=== PATIENT | female | born 1955 | race Caucasian/White ===

== ENCOUNTER 2023-09-18 08:24 | Outpatient (REF) | payer OTHER, SELFPAY ==
[2023-09-18 14:32] LABS: MANUAL DIFF FLAG NO
[2023-09-18 14:37] LABS: Basophils Percent Auto 0.5 % (0-2); Eosinophils Absolute Auto 0.4 X10*3/uL (0.0-0.4); Eosinophils Percent Auto 4.4 % (0-4); Hematocrit 45.6 % (37.0-47.0); Hemoglobin 15.6 g/dl (12.0-16.0); Imm Gran Abs Auto 0.04 X10*3/uL (0.00-0.03); Imm Gran Pct Auto 0.5 % (0.0-0.4); Lymphocytes Absolute Auto 1.7 X10*3/uL (1.2-4.9); Lymphocytes Percent Auto 21.2 % (20-40); Mean Corpuscular HGB Conc 34.2 g/dl (31.0-35.0); Mean Corpuscular Hemoglobin 29.7 pg (27.0-33.0); Mean Corpuscular Volume 86.7 fL (80.0-98.0); Mean Platelet Volume 10.5 fL (9.4-12.3); Monocytes Absolute Auto 0.6 X10*3/uL (0.1-1.2); Monocytes Percent Auto 7.8 % (2-11); Neutrophils Absolute Auto 5.3 x10*3/uL (2.0-8.3); Neutrophils Percent Auto 65.6 % (45-73); Platelet Count 247 X10*3/uL (160-400); Red Blood Count 5.26 X10*6/uL (4.20-5.50); White Blood Count 8.1 X10*3/uL (4.8-10.8)
[2023-09-18 15:20] LABS: Alanine Aminotransferase 13 U/L (0-31); Albumin Level 4.3 g/dL (3.5-5.0); Alkaline Phosphatase 55 U/L (39-117); Anion Gap 13 (12-20); Aspartate Amino Transferase 16 U/L (5-31); Bilirubin Total 0.4 mg/dL (0.0-1.0); Blood Urea Nitrogen 29 mg/dL (9-16); Calcium 9.7 mg/dL (8.4-10.2); Carbon Dioxide 27 mmol/L (22-29); Chloride 105 mmol/L (96-108); Cholesterol 264 mg/dL (<200); Estimated Glomerular Filt Rate 56; Glucose Fasting 88 mg/dL (60-99); HDL Cholesterol 48 mg/dL (>40); LDL Cholesterol Calculated 196 mg/dL (<100); Potassium 3.1 mmol/L (3.3-5.1); Sodium 142 mmol/L (135-145); Total Protein 7.1 g/dL (6.5-8.0); Triglycerides 104 mg/dL (<150)
[2023-09-18 15:21] LABS: Vitamin D 25-OH Total 66.9 ng/mL (>30)
[2023-09-19 03:28] LABS: ~HepC Num1 0.06 S/CO (0.00-0.79); ~Hepatitis C Antibody Nonreactive (Nonreactive)
== END 2023-09-18 08:25 | disposition home or self-care (01) ==
LOC: HO.CHCLDS 08:24
PROVIDERS: Visit Provider Internal Medicine
DX: I10 Essential (primary) hypertension (principal); E55.9 Vitamin D deficiency, unspecified
CPT/HCPCS: 36415; 80053; 80061; 82306; 84443; 85025; 86803

== ENCOUNTER 2023-10-12 09:33 | Outpatient (REF) | payer OTHER, SELFPAY ==
[2023-10-12 14:33] LABS: Potassium 3.3 mmol/L (3.3-5.1)
== END 2023-10-12 09:34 | disposition home or self-care (01) ==
LOC: HO.CHCLDS 09:33
PROVIDERS: Visit Provider Internal Medicine
DX: E87.6 Hypokalemia (principal)
CPT/HCPCS: 36415; 84132

== ENCOUNTER 2024-08-23 09:59 | Outpatient (REF) | payer OTHER, SELFPAY ==
[2024-08-23 12:00] LABS: Alanine Aminotransferase 33 U/L (0-31); Albumin Level 4.1 g/dL (3.5-5.0); Alkaline Phosphatase 57 U/L (39-117); Anion Gap 12 (12-20); Aspartate Amino Transferase 26 U/L (5-31); Bilirubin Total 0.5 mg/dL (0.0-1.0); Blood Urea Nitrogen 22 mg/dL (9-16); Calcium 9.5 mg/dL (8.4-10.2); Carbon Dioxide 26 mmol/L (22-29); Chloride 108 mmol/L (96-108); Cholesterol 147 mg/dL (<200); Estimated Glomerular Filt Rate > 60; Glucose Random 123 mg/dL (60-115); HDL Cholesterol 45 mg/dL (>40); LDL Cholesterol Calculated 85 mg/dL (<100); Potassium 3.8 mmol/L (3.3-5.1); Sodium 142 mmol/L (135-145); Total Protein 6.4 g/dL (6.5-8.0); Triglycerides 87 mg/dL (<150)
[2024-08-23 12:19] LABS: TSH reflex Free T4 1.72 uIU/mL (0.32-4.0)
== END 2024-08-23 10:00 | disposition home or self-care (01) ==
LOC: HO.HHCL 09:59
PROVIDERS: Visit Provider Internal Medicine
DX: E78.2 Mixed hyperlipidemia (principal); E03.9 Hypothyroidism, unspecified; I10 Essential (primary) hypertension
CPT/HCPCS: 36415; 80053; 80061; 84443

== ENCOUNTER 2024-12-21 15:30 | Outpatient (REF) | payer MEDICARE, SELFPAY ==
--- NOTE | ~2024-12-21 | XR_ITS ---
EXAMINATION: XR ELBOW, RIGHT CLINICAL INFORMATION: INJURY COMPARISON: None available. TECHNIQUE: AP, lateral, and oblique views of the right elbow. FINDINGS: No fracture, dislocation, or suspicious bone lesion. Normal alignment. Joint spaces are preserved. No evidence of joint effusion. Small enthesophytes involving the lateral and medial epicondyles. Normal soft tissues. XR/XR elbow RT min 3V IMPRESSION: No acute findings right elbow. Electronically signed by: Aba Kign MD 12/21/2024 04:05 PM JOVANA
--- OUTSIDE RECORDS SUMMARY | 2024-12-21 15:34 | XMS_ITS | Encounter Summary ---
Author Organization [employer] Address [address] 7t [place] [address] Care Team Providers Care Ventilation Worker Name Role Phone Munir Ruiz MD Primary Care Prov ider Encounter Details Date Type Department Care Team (Latest Contact Info) Description 12/02/2024 Travel Social History Tobacco Use Types Packs/Day Years Used Date Smoking Tobacco: Former Cigarettes 970 - 1999 Smokeless Tobacco: Never Alcohol Use Standard Drinks/Week Comments Not Currently 0 (1 standard drink = 0.6 oz pur e alcohol) Depression Answer Date Recorded Patient Health Questionnaire-9 Score 0 09/13/2024 Patient Health Questionnaire-9 Score 0 09/13/2024 Last PHQ-9: Questionnaire Data Not on file 1 11/13/2023 Housing Stability Answer Date Recorded What is your housing situation today? I have beaujuan ching 09/13/[address] you li ve. Do you have problems with any of the following? None of the above 09/13/2024 Food Insecurity Answer Date Recorded Within the past 12 months, y ou worried that your food would run out before you got money to buy more: Never True 09/13/2024 Within the past 12 months,th e food you bought just didn't last and you didn't have enough money to get more: Never True 10/2024 Transportation Answer Date Recorded In the past 12 months, has l ack of transportation kept you from medical appts, meetings, work or from getting things needed for daily living? No 09/13/2024 Utilities Answer Date Recorded In the past 12 months, has t he electric, gas, oil or water company threatened to shut off services in your home? No 09/13/2024 Depression Answer Date Recorded Patient Health Questionnaire-2 Score 0 09/13/2024 Internet Access Answer Date Recorded Internet Access Q1 Yes 09/13/2024 Internet Access Q2 Not on file 09/13/2024 Comments Unknown Sex and Gender Information Value Date Recorded Sex Assigned at Female 07/30/2023 5:43 PM EDT Legal Sex Female 5:36 PM EDT Gender Identity Female 07/30/2023 5:43 PM EDT Sexual Orientation Don't know 07/30/2023 5: 43 PM EDT documented as of this encounter Plan of Treatment Upcoming Encounters Date Type Department Care Team (Late st Contact Info) Description 01/06/2025 8:30 AM EST Telemedicine [facility] MED & PEDS [address] [place] [address] Munir Ruiz MD 505 [place] [address] 01/17/2025 9:00 AM EDT Clinical Support [facility] MED & PEDS [address] [place] [address] Di Ulloa, ANA 505 [place] [address] 03/03/2025 1:30 PM EDT Office Visit [facility] OPTOMETRY [address] [place] [address] MartinTamica crawford, OD [address] [place] [address] documented as of this encounter Visit Diagnoses Not on filedocumented in this encounter Additional Health Concerns Assessment Noted Time PHQ-9 Depression Total Score: 0 09/13/20 24 1:43 PM EST documented as of this encounter Care Teams Ventilation Worker Relationship Specialty Start Date End Date Munir Ruiz MD 505 [place] [address] PCP - General Internal Medicine 10/12/23 documented as of this encounter
--- OUTSIDE RECORDS SUMMARY | 2024-12-21 15:34 | XMS_ITS | Encounter Summary ---
Author Organization [employer] Address [address] [facility] 7t [place] [address] Care Team Providers Care Proof Technician Helper Name Role Phone Munir Ruiz MD Primary Care Prov ider Reason for Visit * Reason Onset Date Comments Med Refill 12/20/2024 Encounter Details Date Type Department Care Team (Late st Contact Info) Description 12/20/2024 Refill [facility] MEDICINE [address] [place] [address] Munir Ruiz MD [address] [place], [place] [phone] Anxiety Social History Tobacco Use Types Packs/Day Years Used Date Smoking Tobacco: Former Cigarettes 1 30 1 970 - 2000 Smokeless Tobacco: Never Alcohol Use Standard Drinks/Week Comments Not Currently 0 (1 standard drink = 0.6 oz pur e alcohol) Depression Answer Date Recorded Patient Health Questionnaire-9 Score 0 09/13/2024 Patient Health Questionnaire-9 Score 0 09/13/2024 Last PHQ-9: Questionnaire Data Not on file 1 11/13/2023 Housing Stability Answer Date Recorded What is your housing situation today? I have beau ching 09/13/[address] you [...] PM EDT documented as of this encounter Miscellaneous Notes * Telephone Encounter - Carlo Damon - 12/20/2024 9:35 AM EST TC from pt requesting medication refill. Medications needing refill : LORazepam (Ativan) 1 MG tablet [facility] be [facility] to: [facility] documented in this encounter Plan of Treatment Upcoming Encounters Date Type Department Care Team (Late st Contact Info) Description 01/06/2025 8:30 AM EST Telemedicine [facility] MED & PEDS [address] [place] [address] Munir Ruiz MD 505 [place] [address] 01/17/2025 9:00 AM EDT Clinical Support [facility] MED & PEDS [address] [place] [address] Di Ulloa RN 505 [place] [address] 03/03/2025 1:30 PM EDT Office Visit [facility] OPTOMETRY [address] [place] [address] Tamica Salazar, OD [address] [place] [address] documented as of this encounter Visit Diagnoses Diagnosis Anxiety Anxiety state, unspecified documented in this encounter Additional Health Concerns Assessment Noted Time PHQ-9 Depression Total Score: 0 09/13/20 24 1:43 PM EST documented as of this encounter Care Teams Proof Technician Helper Relationship Specialty Start Date End Date Munir Ruiz MD [address] [place] [address] PCP - General Internal Medicine 10/12/23 documented as of this encounter
--- OUTSIDE RECORDS SUMMARY | 2024-12-21 15:34 | XMS_ITS | Encounter Summary ---
Author Organization [employer] Address [address] [facility] 7t [place] [address] Care Team Providers Care Size Changer Name Role Phone Munir Ruiz MD Primary Care Prov ider Reason for Visit * Reason Onset Date Comments Med Refill 07/18/2024 Encounter Details Date Type Department Care Team (Late st Contact Info) Description 07/18/2024 Telephone [facility] MEDICINE [address] [place] [address] Munir Ruiz MD [address] [place], [place] [phone] Med Refill Social History Tobacco Use Types Packs/Day Years Used Date Smoking Tobacco: Former Cigarettes 1 30 1 970 - 2000 Smokeless Tobacco: Never Alcohol Use Standard Drinks/Week Comments Not Currently 0 (1 standard drink = 0.6 oz pur e alcohol) Depression Answer Date Recorded Patient Health Questionnaire-9 Score 3 08/28/2023 Patient Health Questionnaire-9 Score 3 08/28/2023 Last PHQ-9: Questionnaire Data Not on file 1 Housing Stability Answer Date Recorded What is your housing situation today? I have beau ching 08/28/[address] you li ve. Do you have problems with any of the following? None of the above 08/28/2023 Food Insecurity Answer Date Recorded Within the past 12 months, y ou worried that your food would run out before you got money to buy more: Never True 08/28/2023 Within the past 12 months,th e food you bought just didn't last and you didn't have enough money to get more: Never True Transportation Answer Date Recorded In the past 12 months, has l ack of transportation kept you from medical appts, meetings, work or from getting things needed for daily living? No 08/28/2023 Utilities Answer Date Recorded In the past 12 months, has t he electric, gas, oil or water company threatened to shut off services in your home? No 08/28/2023 Depression Answer Date Recorded Patient Health Questionnaire-2 Score 0 08/28/2023 Comments Unknown Sex and Gender Information Value Date Recorded Sex Assigned at Female 07/30/2023 5:43 PM EDT Legal Sex Female 5:36 PM EDT Gender Identity Female 07/30/2023 5:43 PM EDT Sexual Orientation Don't know 07/30/2023 5: 43 PM EDT documented as of this encounter Miscellaneous Notes * Telephone Encounter - Darrell Hinojosa - 07/18/2024 11:25 AM EDT TC from pt requesting medication refill. Medications needing refill: oxyCODONE (Roxicodone) 5 MG immediate release tablet To be sent to: [facility] [address] [place] [address] documented in this encounter Plan of Treatment Upcoming Encounters Date Type Department Care Team (Late st Contact Info) Description 01/06/2025 8:30 AM EST Telemedicine [facility] MED & PEDS [address] [place] [address] Munir Ruiz MD 505 [place] [address] 01/17/2025 9:00 AM EDT Clinical Support [facility] MED & PEDS [address] [place] [address] Di Ulloa RN 505 [place] [address] 03/03/2025 1:30 PM EDT Office Visit [facility] OPTOMETRY [address] [place], [place] [phone] Tamica Salazar, OD [address] [place] [address] documented as of this encounter Visit Diagnoses Not on filedocumented in this encounter Additional Health Concerns Assessment Noted Time PHQ-9 Depression Total Score: 3 08/28/20 8:58 AM EDT documented as of this encounter Care Teams Size Changer Relationship Specialty Start Date End Date Munir Ruiz MD [address] [place] [address] PCP - General Internal Medicine 10/12/23 documented as of this encounter
--- OUTSIDE RECORDS SUMMARY | 2024-12-21 15:34 | XMS_ITS | Encounter Summary ---
Author Organization [employer] Address [address] [facility] 7t [place] [address] Care Team Providers Care Pastrycook'S Assistant Name Role Phone Munir Ruiz MD Primary Care Prov ider Reason for Visit * Reason Onset Date Comments Med Refill 11/22/2024 Encounter Details Date Type Department Care Team ([facility] st Contact Info) Description 11/22/2024 Refill [facility] MED & PEDS [address] [place], [place] [phone] Munir Ruiz MD 505 [place] [address] Anxiety Social History Tobacco Use Types Packs/Day [...] Info) Description 01/06/2025 8:30 AM EST Telemedicine [facility] MED & PEDS [address] [place] [address] Munir Ruiz MD 505 [place] [address] 01/17/2025 9:00 AM EDT Clinical Support [facility] MED & PEDS [address] [place] [address] Di Ulloa, ANA 505 [place] [address] 03/03/2025 1:30 PM EDT Office Visit [facility] OPTOMETRY [address] [place] [address] Tamica Salazar, OD [address] [place] [address] documented as of this encounter Visit Diagnoses Diagnosis Anxiety Anxiety state, unspecified documented in this encounter Additional Health Concerns Assessment Noted Time PHQ-9 Depression Total Score: 0 09/13/20 24 1:43 PM EST documented as of this encounter Care Teams Pastrycook'S Assistant Relationship Specialty Start Date End Date Munir Ruiz MD 505 [place] [address] PCP - General Internal Medicine 10/12/23 documented as of this encounter
--- OUTSIDE RECORDS SUMMARY | 2024-12-21 15:34 | XMS_ITS | Encounter Summary ---
Author Organization [employer] Address [address] [facility] 7t [place] [address] Care Team Providers Care Bull Riveter Name Role Phone Munir Ruiz MD Primary Care Prov ider Encounter Details Date Type Department Care Team (Late st Contact Info) Description 09/14/2024 Orders Only [facility] [address] [place] [address] Provider, MD Arjun Social History Tobacco Use Types Packs/Day Years [...] Info) Description 01/06/2025 8:30 AM EST Telemedicine [facility] MED & PEDS [address] [place] [address] Munir Ruiz MD 505 [place] [address] 01/17/2025 9:00 AM EDT Clinical Support [facility] MED & PEDS [address] [place] [address] Di Ulloa, ANA [address] [place] [address] 03/03/2025 1:30 PM EDT Office Visit [facility] OPTOMETRY [address] [place] [address] Martin, Tamica, OD [address] [place] [address] documented as of this encounter Procedures Procedure Name Priority Date/Time Associated Diagnosis Comments HM MAMMOGRAPHY Routine 11/13/2023 11:54 AM EST documented in this encounter Results * Hm Mammography (11/13/2023 11:54 AM EST) Anatomical Region Laterality Modality Other us Historical Provider HEALTH MAINTENANCE Final Result documented in this encounter Visit Diagnoses Not on filedocumented in this encounter Additional Health Concerns Assessment Noted Time PHQ-9 Depression Total Score: 0 09/13/20 24 1:43 PM EST documented as of this encounter Care Teams Bull Riveter Relationship Specialty Start Date End Date Munir Ruiz MD [address] [place] [address] PCP - General Internal Medicine 10/12/23 documented as of this encounter
--- OUTSIDE RECORDS SUMMARY | 2024-12-21 15:34 | XMS_ITS | Encounter Summary ---
Author Organization [employer] Address [address] [place] [address] Care Team Providers Care Small Craft Operator Name Role Phone Munir Ruiz MD Primary Care Prov ider Encounter Details Date Type Department Care Team (Latest Contact Info) Description 12/20/2024 Travel Social History Tobacco Use Types Packs/Day Years Used Date Smoking Tobacco: Former Cigarettes 30 970 - 1999 Smokeless Tobacco: Never Alcohol [...] Info) Description 01/06/2025 8:30 AM EST Telemedicine [facility] MED & PEDS [address] [place] [address] Munir Ruiz MD [address] [place] [address] 01/17/2025 9:00 AM EDT Clinical Support [facility] MED & PEDS [address] [place] [address] Di Ulloa, ANA 505 [place] [address] 03/03/2025 1:30 PM EDT Office Visit [facility] OPTOMETRY [address] [place] [address] MartinTamica crawford, OD [address] [place] [address] documented as of this encounter Visit Diagnoses Not on filedocumented in this encounter Additional Health Concerns Assessment Noted Time PHQ-9 Depression Total Score: 0 09/13/20 24 1:43 PM EST documented as of this encounter Care Teams Small Craft Operator Relationship Specialty Start Date End Date Munir Ruiz MD [address] [place] [address] PCP - General Internal Medicine 10/12/23 documented as of this encounter
--- OUTSIDE RECORDS SUMMARY | 2024-12-21 15:34 | XMS_ITS | Encounter Summary ---
Author Organization [employer] Address [address] [facility] 7t [place] [address] Care Team Providers Care Furnace Tapper Name Role Phone Munir Ruiz MD Primary Care Prov ider Reason for Visit * Reason Onset Date Comments Med Refill 09/12/2024 Encounter Details Date Type Department Care Team (Late st Contact Info) Description 09/12/2024 Telephone [facility] MEDICINE 230 [place] [address] Munir Ruiz MD [address] [place], [place] [phone] Med Refill Social History Tobacco Use Types [...] encounter Miscellaneous Notes * Telephone Encounter - Randy Jordan - 09/12/2024 10:53 AM EST TC from pt requesting medication refill. Medications needing refill : oxyCODONE (Roxicodone) 5 MG immediate release tablet To be sent to: [facility] - [address] documented in this encounter Plan of Treatment Upcoming Encounters Date Type Department Care Team ([facility] st Contact Info) Description 01/06/2025 8:30 AM EST Telemedicine [facility] MED & PEDS 505 [place] [address] Munir Ruiz MD 505 [place] [address] 01/17/2025 9:00 AM EDT Clinical Support [facility] MED & PEDS [address] [place] [address] Di Ulloa, ANA 505 [place] [address] 03/03/2025 1:30 PM EDT Office Visit [facility] OPTOMETRY [address] [place] [address] Tamica Salazar, OD [address] [place] [address] documented as of this encounter Visit Diagnoses Not on filedocumented in this encounter Additional Health Concerns Assessment Noted Time PHQ-9 Depression Total Score: 3 08/28/20 8:58 AM EDT documented as of this encounter Care Teams Furnace Tapper Relationship Specialty Start Date End Date Munir Ruiz MD [address] [place] [address] PCP - General Internal Medicine 10/12/23 documented as of this encounter
--- OUTSIDE RECORDS SUMMARY | 2024-12-21 15:34 | XMS_ITS | Encounter Summary ---
Author Organization [employer] Address [address] [place] [address] Care Team Providers Care Mainspring Former Name Role Phone Munir Ruiz MD Primary Care Prov ider Encounter Details Date Type Department Care Team (Late st Contact Info) Description 12/20/2024 Orders Only [facility] 230 [place], [place] [phone] Chetan Hankins MD [address] [place], [place] [phone] Social History Tobacco Use Types Packs/Day Years Used Date Smoking Tobacco: Former Cigarettes 30 1 970 - 2000 Smokeless Tobacco: [...] Info) Description 01/06/2025 8:30 AM EST Telemedicine [facility] MED & PEDS 505 [place] [address] Munir Ruiz MD 505 [place] [address] 01/17/2025 9:00 AM EDT Clinical Support [facility] MED & PEDS 505 [place] [address] Di Ulloa, RN 505 [place] [address] 03/03/2025 1:30 PM EDT Office Visit [facility] OPTOMETRY [address] [place] [address] Martin, Tamica, OD [address] [place] [address] documented as of this encounter Visit Diagnoses Not on filedocumented in this encounter Additional Health Concerns Assessment Noted Time PHQ-9 Depression Total Score: 0 09/13/20 24 1:43 PM EST documented as of this encounter Care Teams Mainspring Former Relationship Specialty Start Date End Date Munir Ruiz MD [address] [place] [address] PCP - General Internal Medicine 10/12/23 documented as of this encounter
--- OUTSIDE RECORDS SUMMARY | 2024-12-21 15:34 | XMS_ITS | Encounter Summary ---
Author Organization [employer] Address [address] [facility] 7t [place] [address] Care Team Providers Care Flyer Repairer Name Role Phone Munir Ruiz MD Primary Care Prov ider Reason for Visit * Reason Onset Date Comments Referral 12/09/2024 Encounter Details Date Type Department Care Team ([facility] st Contact Info) Description 12/09/2024 Telephone [facility] MED [facility] PEDS [address] [place], [place] [phone] Munir Ruiz MD [address] [place] [address] Referral Social History Tobacco Use Types Packs/Day Years [...] encounter Miscellaneous Notes * Telephone Encounter - Alexa Sandoval RN - 12/09/2024 1:51 PM EST TC to patient. Reviewed provider notes with patient as to why referral for GI and Pulmonary was ordered. 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 She is healing from a fractured clavicle, and will address the referralonce she is healed. * Telephone Encounter - Perla Nielsen - 12/09/2024 1:28 PM EST Tc from pt inquiring why she was referred to gastroenterology and pulmonary. Fraud Investigator advise will send a message to team nurse. Contact pt at [phone] documented in this encounter Plan of Treatment Upcoming Encounters Date Type Department Care Team (Late st Contact Info) Description 01/06/2025 8:30 AM EST Telemedicine [facility] MED & PEDS [address] [place] [address] Munir Ruiz MD [address] [place] [address] 01/17/2025 9:00 AM EDT Clinical Support [facility] MED & PEDS [address] [place], [place] [phone] Di Ulloa, RN [address] [place], [place] [phone] 03/03/2025 1:30 PM EDT Office Visit [facility] OPTOMETRY [address] [place], [place] [phone] MartinTamica crawford, OD [address] [place], [place] [phone] documented as of this encounter Visit Diagnoses Not on filedocumented in this encounter Additional Health Concerns Assessment Noted Time PHQ-9 Depression Total Score: 0 09/13/20 24 1:43 PM EST documented as of this encounter Care Teams Flyer Repairer Relationship Specialty Start Date End Date Munir Ruiz MD [address] [place] [address] PCP - General Internal Medicine 10/12/23 documented as of this encounter
--- OUTSIDE RECORDS SUMMARY | 2024-12-21 15:34 | XMS_ITS | Encounter Summary ---
Author Organization [employer] Address [address] [facility] 7t [place] [address] Care Team Providers Care Landscape And Yardwork Laborer Name Role Phone Munir Ruiz MD Primary Care Prov ider Encounter Details Date Type Department Care Team (Late st Contact Info) Description 12/02/2024 Telephone [facility] MED & PEDS [address] [place], [place] [phone] Munir Ruiz MD [address] [place] [address] Social History Tobacco Use Types Packs/Day Years Used Date Smoking Tobacco: Former Cigarettes 30 1 970 - 1999 Smokeless Tobacco: Never Alcohol [...] encounter Miscellaneous Notes * Telephone Encounter - Bernice Pierre MA - 12/02/2024 8:41 AM EST Called pt for tele appt today with Dr. Thompson. Pt didn't answer, lvm to call office back. documented in this encounter Plan of Treatment Upcoming Encounters Date Type Department Care Team (Late st Contact Info) Description 01/06/2025 8:30 AM EST Telemedicine [facility] MED & PEDS [address] [place] [address] Munir Ruiz MD [address] [place] [address] 01/17/2025 9:00 AM EDT Clinical Support [facility] MED & PEDS [address] [place] [address] Di Ulloa RN [address] [place] [address] 03/03/2025 1:30 PM EDT Office Visit [facility] OPTOMETRY [address] [place] [address] Tamica Salazar, OD [address] [place] [address] documented as of this encounter Visit Diagnoses Not on filedocumented in this encounter Additional Health Concerns Assessment Noted Time PHQ-9 Depression Total Score: 0 09/13/20 24 1:43 PM EST documented as of this encounter Care Teams Landscape And Yardwork Laborer Relationship Specialty Start Date End Date Munir Ruiz MD [address] [place] [address] PCP - General Internal Medicine 10/12/23 documented as of this encounter
--- OUTSIDE RECORDS SUMMARY | 2024-12-21 15:34 | XMS_ITS | Encounter Summary ---
Author Organization [employer] Address 75 [facility] 7t [place] [address] Care Team Providers Care Manufacturing Baker Name Role Phone Munir Ruiz MD Primary Care Prov ider Reason for Visit * Reason Onset Date Comments Nurse Triage 12/20/2024 Encounter Details Date Type Department Care Team (Late st Contact Info) Description 12/20/2024 Telephone [facility] MEDICINE [address] [place] [address] Munir Ruiz MD [address] [place] [address] Nurse Triage Social History Tobacco Use Types Packs/Day Years [...] encounter Miscellaneous Notes * Telephone Encounter - Michelle Diaz LPN - 12/20/2024 10:46 AM EST Triage call returned to patient who reports a fall several weeks ago. Was seen in ED and known fx of clavicle. Patient reports that pain started to get better and was seen at [facility] for clavicle no surgery indicated. Patient reports that she had pain in right elbowat time of fall but other pain was worse. No imaging of elbow per patient. Patient reports right elbow painful whn applying pressure like when getting up. Is able to flex and extend and is able to make a fist. Has been using previously prescribed Oxycodone and is using Ibuprofen as needed. Feels that she may have a fx of elbow and that she feels fluid collection in joint. Disposition reviewed and patient in agreement with plan. ASK/SDC/Today with Dr. Castañeda at 340pm. Protocol Used: Elbow Injury (Adult) Protocol-Based Disposition: See in Office or Video Visit Today or Tomorrow Video visit not offered Positive Triage Question: * Moderate pain (e.g., interferes with normal activities) and high-risk adult (e.g., age > 60 years, osteoporosis, chronic steroid use) * All higher-acuity triage questions were negative Care Advice Discussed: * Rest vs. Movement * Reasons To Call Back - Pain or swelling lasts over 2 weeks - You become worse * Telephone Encounter - Carlo Jose - 12/20/2024 9:32 AM EST TC from pt reports falling about 3x weeks ago and went to ED . Pt reports shattered her clavicle and doctors concern was that . Pt reports did not mention her elbow pain during time frame. Feels it is fractured and has liquid. documented in this encounter Plan of Treatment Upcoming Encounters Date Type Department Care Team (Late st Contact Info) Description 01/06/2025 8:30 AM EST Telemedicine [facility] MED & PEDS [address] [place] [address] Munir Ruiz MD [address] [place] [address] 01/17/2025 9:00 AM EDT Clinical Support [facility] MED & PEDS 505 [place] [address] Di Ulloa, ANA 505 [place] [address] 03/03/2025 1:30 PM EDT Office Visit [facility] OPTOMETRY [address] [place] [address] Tamica Salazar, OD [address] [place] [address] documented as of this encounter Visit Diagnoses Not on filedocumented in this encounter Additional Health Concerns Assessment Noted Time PHQ-9 Depression Total Score: 0 09/13/20 24 1:43 PM EST documented as of this encounter Care Teams Manufacturing Baker Relationship Specialty Start Date End Date Munir Ruiz MD [address] [place] [address] PCP - General Internal Medicine 10/12/23 documented as of this encounter
--- OUTSIDE RECORDS SUMMARY | 2024-12-21 15:34 | XMS_ITS | Encounter Summary ---
Author Organization [employer] Address [address] [facility] [address] 7t [place] [address] Care Team Providers Care Assembler Utility Buildings Name Role Phone Munir Ruiz MD Primary Care Prov ider Encounter Details Date Type Department Care Team (Late st Contact Info) Description 12/20/2024 Telephone [facility]ALK[facility] [address] [place], [place] [phone] Larissa Sue MD 230 [place], [place] [phone] Social History Tobacco Use Types Packs/Day Years [...] Telephone Encounter - Alexa Sandoval RN - 12/21/2024 10:19 AM EST Patient walked into office. Annual BP (158/88) taken on left arm. BP with home machine (162/78) taken on left arm. *please see RN encounter * Telephone Encounter - Ramona Major RN - 12/20/2024 5:35 PM EST See message below. call center coordinator provider Dr. Hankins placed order to [facility] pharmacy. RN called pt as [facility] would be closing soon, if can go to another pharmacy. Pt reports can rx be sent to [facility] and I can pick it up tomorrow as unable to obtain rx today. RN informed provider has sent to [facility] pharmacy. Pt verbalized understanding. Pt inquiring on BP measurements today at visit and informed of BP per office visit note with Dr. Castañeda today 12/20/24. RN inquired if pt has checked BP since being home. Pt reports BP at home 191/80, no s/s reported at this time. RN reviewed ED precautions with pt, whom verbalized understanding and in agreement to go to hospital or call EMS if s/s occur. RN informed pt, message would be sent to team nurses to status check tomorrow. Pt verbalized understanding and thanking for calling and reviewing precautions. No further questions or concerns expressed at this time. Pt to F/U as needed. RN will forward to [facility] team nurses to status check tomorrow. Incoming TC from after hours triage nurse Monserrat Keen reporting pt was seen by Dr. Castañeda and just left [facility] but rx was sent to [facility] pharmacy and closed...BP 200/84 and was informed provider was sending rx for pt to start. Rn verbally spoke with Dr. Sue regarding rx and provider in agreement and to queue rx to provider. RN confirmed pharmacy with nurse Monserrat and informed provider is wit h pt but in agreement to sent rx. Monserrat verbalized understanding and reports to send rx to [facility] Dr. Anton and she will call pt to inform. No further questions or concerns. Nurse Monserrat/pt to F/U as needed. documented in this encounter Plan of Treatment Upcoming Encounters Date Type Department Care Team (Late st Contact Info) Description 01/06/2025 8:30 AM EST Telemedicine [facility] MED & PEDS 505 [place] [address] Munir Ruiz MD 505 [place] [address] 01/17/2025 9:00 AM EDT Clinical Support [facility] MED & PEDS [address] [place] [address] Di Ulloa, ANA 505 [place] [address] 03/03/2025 1:30 PM EDT Office Visit [facility] OPTOMETRY [address] [place] [address] Tamica Salazar, OD [address] [place] [address] documented as of this encounter Visit Diagnoses Diagnosis Benign hypertension Essential hypertension, benign documented in this encounter Additional Health Concerns Assessment Noted Time PHQ-9 Depression Total Score: 0 09/13/20 24 1:43 PM EST documented as of this encounter Care Teams Assembler Utility Buildings Relationship Specialty Start Date End Date Munir Ruiz MD [address] [place] [id number] PCP - General Internal Medicine 10/12/23 documented as of this encounter
--- OUTSIDE RECORDS SUMMARY | 2024-12-21 15:34 | XMS_ITS | Encounter Summary ---
Author Organization [employer] Address [address] [facility] [address] 7t [place] [address] Care Team Providers Care Transport Operations Inspector Name Role Phone Munir Ruiz MD Primary Care Prov ider Reason for Visit * Reason Onset Date Comments Medication Question 07/18/2024 Encounter Details Date Type Department Care Team (Late st Contact Info) Description 07/18/2024 Telephone [facility] MEDICINE 230 [place] [address] Munir Ruiz MD [address] [place], [place] [phone] Medication Question Social History Tobacco Use Types Packs/Day Years [...] Telephone Encounter - Darrell Hinojosa - 07/18/2024 11:26 AM EDT Tc from pt calling in regards to the Oxycodone and LORazepam, Pt is requesting for the medication to be on the same cycle for her to be able to pick them up at the same time instead of having to make2 different trips to the pharmacy. If any questions you can contact pt at [phone]. documented in this encounter Plan of Treatment Upcoming Encounters Date Type Department Care Team (Late st Contact Info) Description 01/06/2025 8:30 AM EST Telemedicine [facility] MED & PEDS 505 [place] [address] Munir Ruiz MD 505 [place] [address] 01/17/2025 9:00 AM EDT Clinical Support [facility] MED & PEDS 505 [place] [address] Di Ulloa RN 505 [place] [address] 03/03/2025 1:30 PM EDT Office Visit [facility] OPTOMETRY [address] [place] [address] Tamica Salazar, OD [address] [place] [address] documented as of this encounter Visit Diagnoses Not on filedocumented in this encounter Additional Health Concerns Assessment Noted Time PHQ-9 Depression Total Score: 3 08/28/20 8:58 AM EDT documented as of this encounter Care Teams Transport Operations Inspector Relationship Specialty Start Date End Date Munir Ruiz MD [address] [place] [id number] PCP - General Internal Medicine 10/12/23 documented as of this encounter
--- OUTSIDE RECORDS SUMMARY | 2024-12-21 15:34 | XMS_ITS | Encounter Summary ---
Author Organization [employer] Address [address] [facility] [address] 7t [place] [address] Care Team Providers Care Ship Boat Or Barge Mate Name Role Phone Munir Ruiz MD Primary Care Prov ider Encounter Details Date Type Department Care Team (Late st Contact Info) Description 12/20/2024 3:40 PM EST Office Visit [facility] MED [facility] PEDS 505 [place], [place] [phone] Gabriella Castañeda MD 505 [place] [address] Olecranon bursitis of right elbow (Primary Dx); Right elbow pain; Uncontrolled hypertension Social History Tobacco Use Types Packs/Day Years [...] PM EDT documented as of this encounter Last Filed Vital Signs Vital Sign Reading Time Taken Comments Blood Pressure 200/84 12/20/2024 4:25 PM EST Pulse 61 12/20/2024 3:30 PM EST Temperature 36.4 ??C (97.6 ??F) 12/20/2024 3:30 PM ES T Respiratory Rate 20 12/20/2024 3:30 PM EST Oxygen Saturation 97% 12/20/2024 3:30 PM EST Inhaled Oxygen Concentration - - Weight 78 kg (172 lb) 12/20/2024 3:30 PM EST Height 162.6 cm (5' 4 ) 12/20/2024 3:30 PM EST Body Mass Index 29.52 12/20/2024 3:30 PM EST documented in this encounter Patient Instructions * Patient Instructions* Gabriella Castañeda MD - 12/20/2024 3:40 PM EST Start taking amlodipine 2.5 mg daily, first dose today. Check your blood pressure in your left arm twice daily. Call nurses at [facility] to report your BP tomorrow afternoon. Today your BP was 210/80 in your left arm. 2. Cut way down on ibuprofen, maximum 1 dose per day. 3. Get right elbow xray at your convenience. 4. Use ice on your right upper shoulder and right elbow. documented in this encounter Progress Notes * Gabriella Castañeda MD - 12/20/2024 3:40 PM EST Subjective Patient ID: Bridget Crane is a 69 y.o. female who presents for right elbow pain. HPI Bridget fell down some stairs about 3 weeks ago and fracture her right clavicle. She saw Ortho and they said she does not need surgery. She is taking ibuprofen and oxycodone for the pain and she is starting to have pain in her upper shoulder now that is not relieved with ibuprofen 800 mg every 4-6 hours. She is here primarily, though, for pain in her right elbow that has developed in these past 3 weeks. Pain occurs when she leans her elbow on a surface or moves it in a certain way. Does not recall having any xrays of her elbow. Does not remember if she fell onto her elbow. Review of Systems Respiratory: Negative for shortness of breath. Cardiovascular: Negative for chest pain and leg swelling. Musculoskeletal: Positive for arthralgias and myalgias. Neurological: Negative for headaches. Objective BP (!) 207/84 (BP Location: Left arm, Patient Position: Sitting, BP Cuff Size: Adult) Pulse 61 Temp 97.6 ??F (36.4 ??C) (Oral) Resp 20 Ht 5' 4 (1.626 m) Wt 172 lb (78 kg) SpO2 97% BMI 29.52 kg/m?? Repeat BP: Right 210/80 Left 200/84 Physical Exam Constitutional: General: She is in acute distress (mild). Appearance: She is not ill-appearing. HENT: Head: Normocephalic and atraumatic. Pulmonary: Effort: Pulmonary effort is normal. Musculoskeletal: General: Swelling (right olecranon rubbery tender subcutaneous swelling, no erythema) present. Right elbow: Normal range of motion. Tenderness present. Left elbow: Normal. Right lower leg: No edema. Left lower leg: No edema. Skin: Capillary Refill: Capillary refill takes less than 2 seconds. Neurological: General: No focal deficit present. Mental Status: She is alert. Psychiatric: Behavior: Behavior normal. Assessment/Plan Diagnoses and all orders for this visit: Olecranon bursitis of right elbow: Recommended ice and a cushioned sleeve. Will check right elbow x-ray to make sure there is no fracture. Right elbow pain - XR Elbow 1-2 Views Right; Future Uncontrolled hypertension: she is taking large doses of ibuprofen and is in considerable pain. Already takes lisinopril 40 mg/day and hydrochlorothiazide 25 mg/day. Normal renal function. Cut down ibuprofen to max 800 mg/day Use ice to help with pain relief Start amlodipine 2.5 mg/day (Rx sent) today and call [facility] nurses tomorrow with home BP readings. Will need to bring her home BP machine in at some point to see if it correlates with office BP readings. Future Appointments Date Time Provider Department Center 01/17/2025 9:00 AM Di Ulloa RN [facility] 03/03/2025 1:30 PM Tamica Salazar OD [facility] documented in this encounter Plan of Treatment Upcoming Encounters Date Type Department Care Team (Late st Contact Info) Description 01/06/2025 8:30 AM EST Telemedicine [facility] MED & PEDS 505 [place] [address] Munir Ruiz MD 505 [place] [address] 01/17/2025 9:00 AM EDT Clinical Support [facility] MED & PEDS [address] [place] [address] Di Ulloa RN 505 [place] [address] 03/03/2025 1:30 PM EDT Office Visit [facility] OPTOMETRY [address] [place] [address] Tamica Salazar, CASS [address] [place] [address] Scheduled Orders Name Type Priority Associated Diagnoses Orde r Schedule XR Elbow 1-2 Views Right Imaging Routine Right elbow pain Expected: 12/20/2024, Expires: 12/20/2025 documented as of this encounter Visit Diagnoses Diagnosis Olecranon bursitis of right elbow- Primary Right elbow pain Pain in joint, upper arm Uncontrolled hypertension documented in this encounter Additional Health Concerns Assessment Noted Time PHQ-9 Depression Total Score: 0 09/13/20 24 1:43 PM EST documented as of this encounter Care Teams Ship Boat Or Barge Mate Relationship Specialty Start Date End Date Munir Ruiz MD [address] [place] [address] PCP - General Internal Medicine 10/12/23 documented as of this encounter
--- OUTSIDE RECORDS SUMMARY | 2024-12-21 15:34 | XMS_ITS | Encounter Summary ---
Author Organization [email or web address] Address 75 [facility] 7t [place] [address] Care Team Providers Care Ornamental Ironworker Name Role Phone Munir Ruiz MD Primary Care Prov ider Reason for Referral * Consultation (Routine) - Authorized Specialty Diagnoses / Procedures Referred By Roberto chowdary Referred To Contact Pulmonary Disease Diagnoses Lung nodule Munir Ruiz MD [address] [place] [address] Phone: tel: fax: [employer] [address] [place] [address] [place] [address] Phone: tel: fax: Referral ID Status Reason Start Date Expiration Date Visits Requested Visits Authorized [id number] Authorized Specialty Services Required 12/02/2024 12/02/2025 1 1 * Consultation (Routine) - Closed Specialty Diagnoses / Procedures Referred By Roberto chowdary Referred To Contact Gastroenterology Diagnoses Oropharyngeal dysphagia Munir Ruiz MD [address] [place] [address] Phone: tel: fax: [facility]astroenterology [address] [place], [place] Phone: tel: fax: Referral ID Status Reason Start Date Expiration Date V isits Requested Visits Authorized [id number] Closed Specialty Services Required 12/02/2024 12/02/2025 1 1 Encounter Details Date Type Department Care Team (Late st Contact Info) Description 12/02/2024 9:30 AM EST Telemedicine [facility] MED [facility]EDS [address] [place] [address] Munir Ruiz MD [address] [place] [address] Benign hypertension (Primary Dx); Chronic pain syndrome; Acquired hypothyroidism; Oropharyngeal dysphagia; Lung nodule Social History Tobacco Use Types Packs/Day Years [...] Sign Reading Time Taken Comments Blood Pressure 129/60 12/02/2024 9:34 AM EST Pulse - - Temperature - - Respiratory Rate - - Oxygen Saturation - - Inhaled Oxygen Concentration - - Weight - - Height - - Body Mass Index - - documented in this encounter Progress Notes * Munir Massey MD - 12/02/2024 9:30 AM EST Subjective Patient ID: Bridget Crane is a 68 y.o. female who presents for No chief complaint on file.. Hypertension This is a chronic problem. Pertinent negatives include no chest pain, headaches, palpitations, peripheral edema or shortness of breath. Review of Systems Respiratory: Negative for shortness of breath. Cardiovascular: Negative for chest pain and palpitations. Neurological: Negative for headaches. Objective Physical Exam Neurological: General: No focal deficit present. Mental Status: She is oriented to person, place, and time. Psychiatric: Mood and Affect: Mood normal. Behavior: Behavior normal. Assessment/Plan Problem List Items Addressed This Visit Benign hypertension - Primary Controlled, continue low sodium diet and exercise as tolerated, keep bp log, follow up in 3 months Hypothyroidism Clinically euthyroid, last tsh was stable, follow up in 3-4 months Chronic pain syndrome Relevant Medications oxyCODONE (Roxicodone) 5 MG immediate release tablet Oropharyngeal dysphagia Will refer to GI, she refers has hx of dilation Relevant Orders Referral to Gastroenterology Lung nodule Hx of neck cancer, found with lung nodule, Relevant Orders Referral to Pulmonology documented in this encounter Miscellaneous Notes * Assessment & Plan Note - Munir Massey MD - 12/02/2024 10:32 AM ESTAssociated Problem(s): Lung nodule Hx of neck cancer, found with lung nodule, * Assessment & Plan Note - Munir Massey MD - 12/02/2024 10:30 AM ESTAssociated Problem(s): Oropharyngeal dysphagia Will refer to GI, she refers has hx of dilation * Assessment & Plan Note - Munir Massey MD - 12/02/2024 10:29 AM ESTAssociated Problem(s): Hypothyroidism Clinically euthyroid, last tsh was stable, follow up in 3-4 months * Assessment & Plan Note - Munir Massey MD - 12/02/2024 10:28 AM ESTAssociated Problem(s): Benign hypertension Controlled, continue low sodium diet and exercise as tolerated, keep bp log, follow up in 3 months documented in this encounter Plan of Treatment Upcoming Encounters Date Type Department Care Team (Late st Contact Info) Description 01/06/2025 8:30 AM EST Telemedicine [facility] MED & PEDS [address] [place] [address] Munir Ruiz MD [address] [place] [address] 01/17/2025 9:00 AM EDT Clinical Support [facility] MED & PEDS [address] [place] [address] Di Ulloa, ANA 505 [place] [address] 03/03/2025 1:30 PM EDT Office Visit [facility] OPTOMETRY [address] [place] [address] Tamica Salazar, OD [address] [place] [address] Scheduled Referrals Name Type Priority Associated Diagnoses Order Schedule Referral to Gastroenterology Outpatient Referral Routine Oropharyngeal dysphagia Expected: 12/02/2024 (Approximate), Expires: 12/02/2025 Referral to Pulmonology Outpatient Referral Routine Lung nodule Expected: 12/02/2024 (Approximate), Expires: 12/02/2025 documented as of this encounter Visit Diagnoses Diagnosis Benign hypertension- Primary Essential hypertension, benign Chronic pain syndrome Acquired hypothyroidism Unspecified hypothyroidism Oropharyngeal dysphagia Dysphagia, oropharyngeal phase Lung nodule Other diseases of lung, not elsewhere classified documented in this encounter Additional Health Concerns Assessment Noted Time PHQ-9 Depression Total Score: 0 09/13/20 24 1:43 PM EST documented as of this encounter Care Teams Ornamental Ironworker Relationship Specialty Start Date End Date Munir Ruiz MD [address] [place] [address] PCP - General Internal Medicine 10/12/23 documented as of this encounter
--- OUTSIDE RECORDS SUMMARY | 2024-12-21 15:34 | XMS_ITS | Encounter Summary ---
Author Organization [employer] Address 75 [facility] 7t [place] [address] Care Team Providers Care Astronomy Department Chair Name Role Phone Munir Ruiz MD Primary Care Prov ider Reason for Visit * Reason Onset Date Comments chart prep 11/30/2024 Encounter Details Date Type Department Care Team ([facility] st Contact Info) Description 11/30/2024 Telephone [facility] MED [facility]S [address] [place], [place] [phone] Munir Ruiz MD 505 [place] [address] chart prep Social History Tobacco Use Types Packs/Day Years [...] Telephone Encounter - Bernice Pierre MA - 11/30/2024 11:07 AM EST Chart Prep Labs: done Images: done Vaccines due: yes Referrals: pending appt Screenings: none Overdue care gaps: Sbirt documented in this encounter Plan of Treatment Upcoming Encounters Date Type Department Care Team (Late st Contact Info) Description 01/06/2025 8:30 AM EST Telemedicine [facility] MED & PEDS [address] [place] [address] Munir Ruiz MD [address] [place] [address] 01/17/2025 9:00 AM EDT Clinical Support [facility] MED & PEDS [address] [place] [address] Di Ulloa RN [address] [place] [address] 03/03/2025 1:30 PM EDT Office Visit [facility] OPTOMETRY [address] [place] [address] Tamica Salazar, OD [address] [place] [address] documented as of this encounter Visit Diagnoses Not on filedocumented in this encounter Additional Health Concerns Assessment Noted Time PHQ-9 Depression Total Score: 0 09/13/20 24 1:43 PM EST documented as of this encounter Care Teams Astronomy Department Chair Relationship Specialty Start Date End Date Munir Ruiz MD [address] [place] [address] PCP - General Internal Medicine 10/12/23 documented as of this encounter
--- OUTSIDE RECORDS SUMMARY | 2024-12-21 15:35 | XMS_ITS | Encounter Summary ---
Author Organization [employer] Address [address] [facility] 7t [place] [address] Care Team Providers Care Sales Attendant Building Materials Name Role Phone Munir Ruiz MD Primary Care Prov ider Encounter Details Date Type Department Care Team (Late st Contact Info) Description 12/21/2024 11:15 AM EST Telemedicine [facility] MED & [facility] [address] [facility] [place], [place] [phone] Munir Ruiz MD 505 [place] [address] Benign hypertension (Primary Dx) Social History Tobacco Use Types Packs/Day Years [...] Sign Reading Time Taken Comments Blood Pressure 158/88 12/21/2024 10:51 AM EST Pulse - - Temperature - - Respiratory Rate - - Oxygen Saturation - - Inhaled Oxygen Concentration - - Weight - - Height - - Body Mass Index - - documented in this encounter Progress Notes * Munir Massey MD - 12/21/2024 11:15 AM EST Subjective Patient ID: Bridget Crane is a 69 y.o. female who presents for No chief complaint on file.. Hypertension This is a chronic problem. Pertinent negatives include no chest pain, headaches, palpitations or shortness of breath. Review of Systems Respiratory: Negative for shortness of breath. Cardiovascular: Negative for chest pain and palpitations. Neurological: Negative for headaches. Objective Physical Exam Neurological: General: No focal deficit present. Mental Status: She is oriented to person, place, and time. Psychiatric: Mood and Affect: Mood normal. Behavior: Behavior normal. Assessment/Plan Problem List Items Addressed This Visit Benign hypertension - Primary Uncontrolled, keep bp log, keep low sodium, increase amlodipine to 5mg, could be related to recent events (anxiety and pain). Follow up in 2 weeks documented in this encounter Miscellaneous Notes * Assessment & Plan Note - Munir Massey MD - 12/21/2024 12:22 PM ESTAssociated Problem(s): Benign hypertension Uncontrolled, keep bp log, keep low sodium, increase amlodipine to 5mg, could be related to recent events (anxiety and pain). Follow up in 2 weeks documented in this encounter Plan of Treatment Upcoming Encounters Date Type Department Care Team (Late st Contact Info) Description 01/06/2025 8:30 AM EST Telemedicine [facility] MED & PED[facility] 505 [place] [address] Munir Ruiz MD 505 [place] [address] 01/17/2025 9:00 AM EDT Clinical Support [facility] 505 [place] [address] Di Ulloa, RN 505 [place], [place] [phone] 03/03/2025 1:30 PM EDT Office Visit [facility] OPT[facility]RY [address] [place] [address] Martin, Tamica, OD [address] [place] [address] documented as of this encounter Visit Diagnoses Diagnosis Benign hypertension- Primary Essential hypertension, benign documented in this encounter Additional Health Concerns Assessment Noted Time PHQ-9 Depression Total Score: 0 09/13/20 24 1:43 PM EST documented as of this encounter Care Teams Sales Attendant Building Materials Relationship Specialty Start Date End Date Munir Ruiz MD 505 [place] [address] PCP - General Internal Medicine 10/12/23 documented as of this encounter
--- OUTSIDE RECORDS SUMMARY | 2024-12-21 15:35 | XMS_ITS | Encounter Summary ---
Author Organization [email or web address] Address [address] [facility] 7t [place] [address] Care Team Providers Care Ur Coordinator Name Role Phone Munir Ruiz MD Primary Care Prov ider Encounter Details Date Type Department Care Team (Late st Contact Info) Description 09/22/2023 Orders Only [facility] CH[facility] MED & PEDS 505 [place], [place] [phone] Devon Smart MD 505 [place], [place] [phone] Benign hypertension (Primary Dx); Hypokalemia Social History Tobacco Use Types Packs/Day Years [...] Info) Description 01/06/2025 8:30 AM EST Telemedicine [facility] MED [facility] PEDS 505 [place] [address] Munir Ruiz MD 505 [place] [address] 01/17/2025 9:00 AM EDT Clinical Support [facility] MED [facility] PED[facility] 505 [place] [address] Di Ulloa, ANA 505 [place], [place] [phone] 03/03/2025 1:30 PM EDT Office Visit [facility] OPTOMETRY [address] [place], [place] [phone] Martin, Tamica, OD [address] [place] [address] documented as of this encounter Procedures Procedure Name Priority Date/Time Associated Diagnosis Comments POTASSIUM Routine 10/12/2023 9:37 AM EST Hypokalemia documented in this encounter Results * Potassium (10/12/2023 9:37 AM EST) Potassium 3.3 3.3 - 5.1 mmol/L [facility] Blood Venous blood specimen / Unknown 10/12/2023 9:37 AM EST 10/12/2023 2:06 PM EST us Devon Smart MD LAB BLOOD ORDERABLES Final Result [facility] [address] [place] [address] [phone] documented in this encounter Visit Diagnoses Diagnosis Benign hypertension- Primary Essential hypertension, benign Hypokalemia Hypopotassemia documented in this encounter Additional Health Concerns Assessment Noted Time PHQ-9 Depression Total Score: 3 08/28/20 8:58 AM EDT documented as of this encounter Care Teams Ur Coordinator Relationship Specialty Start Date End Date Munir Ruiz MD [address] [place] [id number] PCP - General Internal Medicine 10/12/23 documented as of this encounter
--- OUTSIDE RECORDS SUMMARY | 2024-12-21 15:35 | XMS_ITS | Encounter Summary ---
Author Organization [employer] Address [address] [address] [facility] [address] 7[address] [place] [address] Care Team Providers Care Senior Financial Consultant Name Role Phone Munir Ruiz MD Primary Care Prov ider Reason for Visit * Reason Onset Date Comments Call Back Request 03/14/2024 Encounter Details Date Type Department Care Team (Late st Contact Info) Description 03/14/2024 Telephone [facility] MEDICINE 230 [place] [address] Munir Ruiz MD [address] [place], [place] [phone] Call Back Request Social History Tobacco Use Types Packs/Day Years [...] * Telephone Encounter - Darrell Hinojosa - 03/14/2024 11:43 AM EDT Tc from pt requesting call back regarding appts. 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 Pt was sure it was every other month but is confused due to upcoming appt on 04/15 after alreadybeing seen this month on 03/11. If any questions please contact pt at [phone]. documented in this encounter Plan of Treatment Upcoming Encounters Date Type Department Care Team (Late st Contact Info) Description 01/06/2025 8:30 AM EST Telemedicine [facility] MED & PEDS 505 [place] [address] Munir Ruiz MD 505 [place] [address] 01/17/2025 9:00 AM EDT Clinical Support [facility] MED & PEDS 505 [place] [address] Di Ulloa RN 505 [place] [address] 03/03/2025 1:30 PM EDT Office Visit [facility] OPTOMETRY [address] [place] [address] Tamica Salazar, OD [address] [place] [address] documented as of this encounter Visit Diagnoses Not on filedocumented in this encounter Additional Health Concerns Assessment Noted Time PHQ-9 Depression Total Score: 3 08/28/20 8:58 AM EDT documented as of this encounter Care Teams Senior Financial Consultant Relationship Specialty Start Date End Date Munir Ruiz MD [address] [place] [id number] PCP - General Internal Medicine 10/12/23 documented as of this encounter
--- OUTSIDE RECORDS SUMMARY | 2024-12-21 15:35 | XMS_ITS | Encounter Summary ---
Author Organization [employer] Address [address] [facility] 7t [place] [address] Care Team Providers Care Business Services Specialist Sales Name Role Phone Munir Ruiz MD Primary Care Prov ider Reason for Visit * Reason Onset Date Comments Medication Question 12/21/2024 Patient need ing BP checked and to check BP machine Encounter Details Date Type Department Care Team ([facility] st Contact Info) Description 12/21/2024 Telephone C [facility] MED [facility]EDS [address] [place], [place] [phone] Alexa Sandoval, assembly worker Question (Patient needing BP checked and to check BP machine) Social History Tobacco Use Types Packs/Day Years [...] Sign Reading Time Taken Comments Blood Pressure 162/78 12/21/2024 10:07 AM EST Pulse - - Temperature - - Respiratory Rate - - Oxygen Saturation - - Inhaled Oxygen Concentration - - Weight - - Height - - Body Mass Index - - documented in this encounter Miscellaneous Notes * Telephone Encounter - Alexa Sandoval RN - 12/21/2024 10:02 AM EST Patient walked in to office stating a nurse called her to come in this morning to get BP checked and check BP machine. Patient presented very nervous and anxious. Spoke with patient for awhile about what was going on. After patient had calmed down, RN was able to take manual BP on left arm for 158/88. After waiting few minutes, BP taken on left arm again using patient home BP machine 162/78. Educated patient on proper placement of BP cuff on arm, make sure to be sitting with both feet on ground, and no talking during the check. Patient was very grateful for all teaching and stated, I feel so much better now that you have taught me all this. I did not get any of this teaching yesterday. RN reassured her that BP was elevated, but better than yesterday. 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 Patient has telehealth appointment today with provider. documented in this encounter Plan of Treatment Upcoming Encounters Date Type Department Care Team (Late st Contact Info) Description 01/06/2025 8:30 AM EST Telemedicine [facility] MED & PEDS 505 [place] [address] Munir Ruiz MD 505 [place] [address] 01/17/2025 9:00 AM EDT Clinical Support [facility] MED & PEDS 505 [place] [address] Di Ulloa, ANA 505 [place] [address] 03/03/2025 1:30 PM EDT Office Visit [facility] OPTOMETRY [address] [place] [address] Martin, Tamica, OD [address] [place] [address] documented as of this encounter Visit Diagnoses Not on filedocumented in this encounter Additional Health Concerns Assessment Noted Time PHQ-9 Depression Total Score: 0 09/13/20 24 1:43 PM EST documented as of this encounter Care Teams Business Services Specialist Sales Relationship Specialty Start Date End Date Munir Ruiz MD 505 [place] [address] PCP - General Internal Medicine 10/12/23 documented as of this encounter
--- OUTSIDE RECORDS SUMMARY | 2024-12-21 15:35 | XMS_ITS | Encounter Summary ---
Author Organization [employer] Address [address] 7t [place] [address] Care Team Providers Care Shaft Headman Name Role Phone Munir Ruiz MD Primary Care Prov ider Encounter Details Date Type Department Care Team (Late st Contact Info) Description 12/20/2024 Orders Only [facility] 230 [place], [place] [phone] Chetan Hankins MD 230 [place], [place] [phone] Social History Tobacco Use Types Packs/Day Years [...] Description 01/06/2025 8:30 AM EST Telemedicine [facility] MED & PEDS 505 [place] [address] Munir Ruiz MD 505 [place] [address] 01/17/2025 9:00 AM EDT Clinical Support [facility] MED & PEDS 505 [place] [address] Di Ulloa, RN 505 [place] [address] 03/03/2025 1:30 PM EDT Office Visit [facility] OPTOMETRY [address] [place] [address] Martin, Tamica, OD [address] [place] [address] documented as of this encounter Visit Diagnoses Not on filedocumented in this encounter Additional Health Concerns Assessment Noted Time PHQ-9 Depression Total Score: 0 09/13/20 24 1:43 PM EST documented as of this encounter Care Teams Shaft Headman Relationship Specialty Start Date End Date Munir Ruiz MD 505 [place] [address] PCP - General Internal Medicine 10/12/23 documented as of this encounter
--- OUTSIDE RECORDS SUMMARY | 2024-12-21 15:35 | XMS_ITS | Encounter Summary ---
Author Organization [employer] Address [address] [facility] [address] [place] [address] Care Team Providers Care Er Rn Name Role Phone Munir Ruiz MD Primary Care Prov ider Reason for Visit * Reason Onset Date Comments Medication Question 10/19/2023 Encounter Details Date Type Department Care Team (Late st Contact Info) Description 10/19/2023 Telephone [facility] MEDICINE 230 [place] [address] Munir Ruiz MD [address] [place], [place] [phone] Medication Question Social History Tobacco Use Types [...] encounter Miscellaneous Notes * Telephone Encounter - Meñoyung Elizabeth - 10/19/2023 1:02 PM EST Tc from pt requesting a new script for oxyCODONE-acetaminophen (Percocet) 5-325 MG tablet, [facility] pharmacy only filled a 7 day supply. Please contact at [phone] documented in this encounter Plan of Treatment Upcoming Encounters Date Type Department Care Team (Late st Contact Info) Description 01/06/2025 8:30 AM EST Telemedicine [facility] CHC MED & PEDS 505 [place] [address] Munir Ruiz MD 505 [place] [address] 01/17/2025 9:00 AM EDT Clinical Support [facility] CHC MED & PEDS 505 [place] [address] Di Ulloa, ANA 505 [place] [address] 03/03/2025 1:30 PM EDT Office Visit [facility] OPTOMETRY [address] [place] [address] Tamica Salazar, OD [address] [place] [address] documented as of this encounter Visit Diagnoses Not on filedocumented in this encounter Additional Health Concerns Assessment Noted Time PHQ-9 Depression Total Score: 3 08/28/20 8:58 AM EDT documented as of this encounter Care Teams Er Rn Relationship Specialty Start Date End Date Munir Ruiz MD [address] [place] [address] PCP - General Internal Medicine 10/12/23 documented as of this encounter
--- OUTSIDE RECORDS SUMMARY | 2024-12-21 15:35 | XMS_ITS | Encounter Summary ---
Author Organization [employer] Address [address] [facility] 7t [place] [address] Care Team Providers Care Boiling House Hand Name Role Phone Munir Ruiz MD Primary Care Prov ider Reason for Visit * Reason Onset Date Comments New Patient 07/30/2023 Encounter Details Date Type Department Care Team (Late st Contact Info) Description 07/30/2023 Telephone [facility] MEDICINE 230 [place] [address] Munir Ruiz MD [address] [place], [place] [phone] New Patient Social History Tobacco Use Types Packs/Day Years Used Date Smoking Tobacco: Never Assessed Comments Unknown Sex and Gender Information Value Date Recorded Sex Assigned at Female 07/30/2023 5:43 PM EDT Legal Sex Female 5:36 PM EDT Gender Identity Female 07/30/2023 5:43 PM EDT Sexual Orientation Don't know 07/30/2023 5: 43 PM EDT documented as of this encounter Miscellaneous Notes * Telephone Encounter - Mari Tobar - 07/30/2023 5:40 PM EDT PEYTON Zuniga called pt to Offer SIDE PANEL HANGER appt. Pt demographics and insurance information were verified. Pt reports the following medical conditions: HBP, High Cholesterol, Cancer low risk. Pt is currently taking medication: Yes (advised to communicate on day of appt) Pt given SIDE PANEL HANGER appt with Dr. Thompson on 08/24/2023 @ 9:00 am. Pt will be sent appt reminder card and medical release form and agrees to complete and to return to medical records prior to SIDE PANEL HANGER appt. documented in this encounter Plan of Treatment Upcoming Encounters Date Type Department Care Team (Late st Contact Info) Description 01/06/2025 8:30 AM EST Telemedicine [facility] MED & PEDS 505 [place] [address] Munir Ruiz MD [address] [place] [address] 01/17/2025 9:00 AM EDT Clinical Support [facility] MED & PEDS 505 [place] [address] Di Ulloa, ANA 505 [place], [place] [phone] 03/03/2025 1:30 PM EDT Office Visit [facility] OPTOMETRY [address] [place] [address] Tamica Salazar, OD [address] [place] [address] documented as of this encounter Visit Diagnoses Not on filedocumented in this encounter Care Teams Boiling House Hand Relationship Specialty Start Date End Date Munir Ruiz MD [address] [place] [address] PCP - General Internal Medicine 10/12/23 documented as of this encounter
--- OUTSIDE RECORDS SUMMARY | 2024-12-21 15:35 | XMS_ITS | Encounter Summary ---
Author Organization [employer] Address [address] [facility] 7t [place] [address] Care Team Providers Care Grid Operator Name Role Phone Munir Ruiz MD Primary Care Prov ider Reason for Visit * Reason Onset Date Comments Nurse Triage 12/21/2024 Encounter Details Date Type Department Care Team (Late st Contact Info) Description 12/21/2024 Telephone [facility] MEDICINE 230 [place] [address] Munir Ruiz MD [address] [place], [place] [phone] Nurse Triage Social History Tobacco Use Types [...] Telephone Encounter - Michelle Diaz LPN - 12/21/2024 9:02 AM EST Triage call placed to patient who reports increased concerns with BP remaining elevated. Patient seen yesterday in [facility]. Related to right elbow injury. BP elevated in office. Amlodipine 2.5mg added tocurrent meds. Patient unable to get new med as RX was closed. Took Amlodipine 5mg as available fromher Sister. Patient took medication last night with BP down to 169/76. Up this morning and BP@ 6am 165/67 and approx. 2 hours later 189/79. Now at time of call 179/72 having taken Lisinopril 40mg andHCTZ 25mg. 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 Patient wants todiscuss with PCP current status. Has not gotten xray done as of yet and wants to address BP concernfirst. Disposition reviewed and patient in agreement with plan. TSK/PCP today at 1115am. Reviewed with patient home care recommendations and reasons to call back. Pt verbalized understanding and agrees. Protocol Used: Blood Pressure - High (Adult) Protocol-Based Disposition: See in Office or Video Visit Today Video visit offered and caller accepted Positive Triage Questions: * Systolic BP >= 180 OR Diastolic >= 110 * Patient wants to be seen * All higher-acuity triage questions were negative Care Advice Discussed: * Reasons To Call Back - Headache, blurred vision, difficulty talking, or difficulty walking occurs - Chest pain or difficulty breathing occurs - You want to go into the office for a blood pressure check - You become worse * Telephone Encounter - Randy Jordan - 12/21/2024 8:04 AM EST Symptom: High Blood Pressure - Caller Reports Outcome: Talk to a nurse or provider within 15 minutes Reason: Sudden increase within the past 24 hours The caller accepted this outcome. Contact pt at [phone] documented in this encounter Plan of Treatment Upcoming Encounters Date Type Department Care Team ([facility] st Contact Info) Description 01/06/2025 8:30 AM EST Telemedicine [facility] MED & PEDS 505 [place] [address] Munir Ruiz MD [address] [place] [address] 01/17/2025 9:00 AM EDT Clinical Support [facility] MED & PEDS [address] [place] [address] Di Ulloa, ANA 505 [place] [address] 03/03/2025 1:30 PM EDT Office Visit [facility] OPTOMETRY [address] [place] [address] Tamica Salazar, OD [address] [facility] [place] [address] documented as of this encounter Visit Diagnoses Not on filedocumented in this encounter Additional Health Concerns Assessment Noted Time PHQ-9 Depression Total Score: 0 09/13/20 24 1:43 PM EST documented as of this encounter Care Teams Grid Operator Relationship Specialty Start Date End Date Munir Ruiz MD [address] [place] [address] PCP - General Internal Medicine 10/12/23 documented as of this encounter
--- OUTSIDE RECORDS SUMMARY | 2024-12-21 15:35 | XMS_ITS | Clinical Summary ---
Author Organization [employer] Address [address] [facility] [address] [place] [address] Care Team Providers Care Dimensional Inspector Name Role Phone Munir Ruiz MD Primary Care Prov ider Allergies Active Allergy Reactions Criticality Noted Date Comments Cisplatin Other 08/22/2024 Cortisone Hives 08/28/2023 Iodinated Contrast Media 08/28/2023 Other reaction(s): Acute renal insufficiency due to procedure, Acute renal insufficiency due to procedure, Renal insufficiency Meperidine Other 08/28/2023 Morphine Other 08/28/2023 Medications Blood Pressure kit 1 kit in the morning. 1 kit 08/28/20 23 Active baclofen (Lioresal) 10 MG tablet Take 1 tablet (10 mg) by mouth 3 times daily. 90 tablet 01/22/20 24 Active ibuprofen 800 MG tablet TAKE 1 TABLET BY MOUTH EVERY 6 TO 8 HOURS NEEDED 05/30/20 24 Active atorvastatin (Lipitor) 40 MG tablet TAKE 1 TABLET BY MOUTH IN THE MORNING 30 tablet 5 09/13/20 24 Active hydroCHLOROthia zide (HYDRODiuril) 25 MG tabletIndicatio ns:Benign hypertension TAKE 1 TABLET BY MOUTH EVERY MORNING 30 tablet 5 09/13/20 24 Active LORazepam (Ativan) 1 MG tabletIndicatio ns:Anxiety Take 1 tablet (1 mg) by mouth at bedtime. 30 tablet 09/26/20 24 Active lisinopril 40 MG tablet TAKE 1 TABLET BY MOUTH IN THE MORNING 90 tablet 1 10/13/20 24 Active levothyroxine (Synthroid, Levoxyl) 50 MCG tablet TAKE 1 TABLET BY MOUTH BEFORE BREAKFAST 90 tablet 1 10/13/20 24 Active oxyCODONE (Roxicodone) 5 MG immediate release tabletIndicatio ns:Chronic pain syndrome Take 1 tablet (5 mg) by mouth every 8 (eight) hours if needed for severe pain for up to 28 days. 84 tablet 12/02/19 25 025 Active LORazepam (Ativan) 1 MG tabletIndicatio ns:Anxiety Take 1 tablet (1 mg) by mouth at bedtime. 30 tablet 12/21/19 25 Active amLODIPine (Norvasc) 5 MG tablet Take 1 tablet (5 mg) by mouth Once per day. Start today per Dr. Castañeda's office visit note 12/20/24 90 tablet 12/21/19 25 025 Active LORazepam (Ativan) 1 MG tablet Take 1 tablet (1 mg) by mouth if needed each day for anxiety for up to 14 days. 14 tablet 12/21/19 25 025 Active LORazepam (Ativan) 1 MG tabletIndicatio ns:Anxiety Take 1 tablet (1 mg) by mouth at bedtime. Do not start before October 25, 2024. 30 tablet 10/25/20 24 025 Discontinued(Re order (will not trigger notification to Pharmacy)) oxyCODONE (Roxicodone) 5 MG immediate release tabletIndicatio ns:Chronic pain syndrome Take 1 tablet (5 mg) by mouth every 8 (eight) hours if needed for severe pain for up to 28 days. 84 tablet 11/07/19 25 025 Discontinued(Re order (will not trigger notification to Pharmacy)) LORazepam (Ativan) 1 MG tabletIndicatio ns:Anxiety Take 1 tablet (1 mg) by mouth at bedtime. 30 tablet 11/22/19 25 025 Discontinued(Re order (will not trigger notification to Pharmacy)) amLODIPine (Norvasc) 2.5 MG tablet Take 2.5 mg by mouth Once per day. Start today per Dr. Castañeda's office visit note 12/20/24 025 Discontinued(Re order (will not trigger notification to Pharmacy)) amLODIPine (Norvasc) 2.5 MG tablet Take 1 tablet (2.5 mg) by mouth Once per day. Start today per Dr. Castañeda's office visit note 12/20/24 30 tablet 12/20/19 25 025 Discontinued Active Problems Problem Noted Date Diagnosed Date Oropharyngeal dysphagia 12/02/2024 Assessment & Plan (12/02/2024 10:30 AM EST): Will refer to GI, she refers has hx of dilation Lung nodule 12/02/2024 Assessment & Plan (12/02/2024 10:32 AM EST): Hx of neck cancer, found with lung nodule, Elevated glucose 09/13/2024 Pre-diabetes 09/13/2024 Assessment & Plan (09/13/2024 6:28 PM EST): A1c 6.0%, diet/lifestyle modifications reinforced, will follow up in 8-12 months [facility] (current) use of opiate analgesic 08/03 Overview (09/28/2024): Dx: chronic pain syndrome Rx: oxycodone 5mg TID orn Last BIOINFORMATICS TECHNICIAN agreement: 3.15.24 Tier II (visit every 3 months) Additional considerations: Lorazepam 1mg nightly Timeline: Mixed hyperlipidemia 10/13/2023 Assessment & Plan (09/13/2024 6:31 PM EST): On atorvastatin, cholesterol/ldl greatly improved, no changes Assessment & Plan (04/27/2024 10:10 AM EDT): On atorvastatin no changes will be made, new labs ordered Assessment & Plan (11/09/2023 10:37 AM EST): On atorvastatin 40mg, will place new lab orders to be done next month Assessment & Plan (10/13/2023 9:49 AM EST): LDL >190 will start on atorvastatin 40mg, she is at increased risk due to her hx of radiotherapy Chronic pain syndrome 10/13/2023 Assessment & Plan (09/28/2024 11:01 AM EST): Pt attended and participated in group for first time today to fullest extent of her abilities and desires - urine toxicology and pill count, not performed, as expected 08/05/24 for utox and pill count of oxycodone. Pill count of Lorazepam 1mg was 19 expected and 4 actual - continue to explore and use non-pharmacological means of pain management - followup in 1-2 months as desired Assessment & Plan (04/27/2024 10:08 AM EDT): Well controlled with current dose of oxycodone, no changes will be made Assessment & Plan (01/22/2024 9:09 AM EDT): Patient refers pain is not controlled, will increase oxycodone to 3 times a day, she has tried cymbalta/amitrityline/gabapentin before with no improvement/side effects (dizziness,nausea), will provide baclofen to aid with muscle pain, follow up as needed Assessment & Plan (10/13/2023 9:50 AM EST): Multiple joint pain after having chemotherapy, will provide oxycodone, risk were discussed. Screening for colon cancer 08/29/2023 Encounter for screening mamm ogram for malignant neoplasm of breast 08/29/2023 Anxiety 08/28/2023 08/28/2023 Assessment & Plan (09/13/2024 6:30 PM EST): Controlled with lorazepam at night, no suicidal/homicidal ideas Assessment & Plan (10/13/2023 9:49 AM EST): Will renew lorazepam, she has been using it for over 6 years with good results Assessment & Plan (08/29/2023 2:07 PM EDT): On lorazepam once a day, she has been more than 5 years on this treatment, will continue same treatment. Benign hypertension 08/28/2023 08/28/2023 Assessment & Plan (12/21/2024 12:22 PM EST): Uncontrolled, keep bp log, keep low sodium, increase amlodipine to 5mg, could be related to recent events (anxiety and pain). Follow up in 2 weeks Assessment & Plan (12/02/2024 10:28 AM EST): Controlled, continue low sodium diet and exercise as tolerated, keep bp log, follow up in 3 months Assessment & Plan (09/13/2024 6:29 PM EST): Controlled, continue hydrochlorothiazide/lisinopril, keep bp log, encouraged low sodium diet Assessment & Plan (04/27/2024 10:09 AM EDT): Controlled at home, there has been reading on the office which have been slightly above target, could be related to anxiety, keep bp log for next visit and keep low sodium diet with current medications Assessment & Plan (11/09/2023 10:37 AM EST): Controlled, continue lisinopril 40mg and hydrochlorothiazide 25mg, bp target <140/90 Assessment & Plan (10/13/2023 9:40 AM EST): Not at target, will increase lisinopril to 40mg, continue with hydrochlorothiazide 25mg, follow up in 1 month Assessment & Plan (08/28/2023 10:24 AM EDT): On hydrochlorothiazide and lisinopril, told to keep a bp log, will renew medications, new blood work will be sent, follow up in 1 month Enlarged lymph node 08/28/2023 08/28/2023 History of head and neck cancer 08/28/2023 08/28/2023 Assessment & Plan (08/29/2023 2:08 PM EDT): Followed by oncology, she is on remission, followed yearly Hypothyroidism 08/28/2023 08/28/2023 Assessment & Plan (12/02/2024 10:29 AM EST): Clinically euthyroid, last tsh was stable, follow up in 3-4 months Assessment & Plan (09/13/2024 6:29 PM EST): On levothyroxine, she is clinically/chemically euthyroid Assessment & Plan (04/27/2024 10:09 AM EDT): New labs will be ordered for guidance Assessment & Plan (10/13/2023 9:48 AM EST): Clinically and chemically euthyroid, no changes will be made Assessment & Plan (08/28/2023 10:25 AM EDT): On levothyroxine 50mcg, new labs will be ordered for guidance of therapy Impaired glucose tolerance 08/28/202308/28 Myalgia 08/28/2023 08/28/2023 Obesity 08/28/2023 08/28/2023 Osteopenia 08/28/2023 08/28/2023 History of cervical cancer 08/28/2023 Vitamin D deficiency 08/28/2023 Assessment & Plan (08/29/2023 2:04 PM EDT): On oral replacement, will continue same treatment and new labs will be ordered Encounters Date Type Department Care Team Description 12/21/2024 11:15 AM EST Telemedicine [facility] [address] [place] [address] Munir Ruiz MD Benign hypertension (Primary Dx) 12/21/2024 Telephone [facility] [address] [place] [address] Alexa Sandoval, bicycle taxi driver Question (Patient needing BP checked and to check BP machine) 12/21/2024 Telephone [facility] [address] [place] [phone] Munir Ruiz MD Nurse Triage 12/20/2024 3:40 PM EST Office Visit [facility] [address] [place] [address] Gabriella Castañeda MD Olecranon bursitis of right elbow (Primary Dx); Right elbow pain; Uncontrolled hypertension 12/20/2024 Orders Only [facility] [address] [place] [phone] Chetan Hankins MD 12/20/2024 Orders Only [facility] [address] [place] [address] Chetan Hankins MD 12/20/2024 Telephone [facility] [address] [place] [phone] Larissa Sue MD 12/20/2024 Travel 12/20/2024 Refill [facility] [address] [place] [address] Munir Ruiz MD Anxiety 12/20/2024 Telephone [facility] [address] [place] [address] Munir Ruiz MD Nurse Triage 12/09/2024 Telephone [facility] [address] [place] [address] Munir Ruiz MD Referral 12/02/2024 9:30 AM EST Telemedicine [facility] [address] [place] [address] Munir Ruiz MD Benign hypertension (Primary Dx); Chronic pain syndrome; Acquired hypothyroidism; Oropharyngeal dysphagia; Lung nodule 12/02/2024 Telephone [facility] [address] [place] [address] Munir Ruiz MD 12/02/2024 Travel 11/30/2024 Telephone [facility] [address] [place] [address] Munir Ruiz MD chart prep 11/22/2024 Refill [facility] [address] [place] [address] Munir Ruiz MD Anxiety 11/07/2024 Refill [facility] [address] [place] [address] Munir Ruiz MD Chronic pain syndrome 10/20/2024 9:30 AM EST Clinical Support [facility] [address] [place] [address] Di Ulloa RN Chronic pain syndrome 10/20/2024 Travel 10/12/2024 Refill [facility] [address] [place] [address] Munir Ruiz MD 10/10/2024 Refill [facility] [address] [place] [address] Munir Ruiz MD Chronic pain syndrome; Anxiety 10/07/2024 Refill [facility] [address] [place] [address] Munir Ruiz MD Chronic pain syndrome 09/23/2024 Refill [facility] [address] [place] [address] Munir Ruiz MD Anxiety 09/21/2024 Refill [facility] [address] [place], [place] [phone] Munir Ruiz MD Anxiety from Last 3 Months Immunizations Name Administration Dates Next Due INFLUENZA INJECTABLE QUADRIV ALANT CCIIV4 MDCK Multi-dose vial 08/25/2019 Influenza Quadrivalent Adjuvanted 09/09/2023 Influenza injectable quadriv alent preservative free 10/19/2021,08/07/2020 Influenza, High Dose Seasona l, Preservative Free 08/05/2024 Influenza, IIV3, injectable 08/11/2022,1 12/20/2020,08/07/2020,08/25,08/02/2013,08/02/2012,08/21/2010 ,08/03/2008,08/14/2007 Pfizer Covid-19 Vaccine 12+ 09/13/2024 Pneumococcal Conjugate PCV 20 09/13/2024 Pneumococcal Polysaccharide PPSV23 08/02/2013 RSV Bivalent 09/09/2023 Td (adult), unspecified 04/03/2003 Tdap 04/16/2020 Family History Medical History Relation Name Comments No Known Problems Father Aortic aneurysm Mother Kidney disease Mother htn Mother Diabetes Sister Hypertension Sister Relation Name Status Comments Father Mother Sister Social History Tobacco Use Types Packs/Day Years Used Date Smoking Tobacco: Former Cigarettes 1 30 1 970 - 2000 Smokeless Tobacco: Never Tobacco Cessation:Counseling Given: Not Answered Alcohol Use Standard Drinks/Week Comments Not Currently [...] Don't know 07/30/2023 5: 43 PM EDT Last Filed Vital Signs Vital Sign Reading Time Taken Comments Blood Pressure 158/88 12/21/2024 10:51 AM EST Pulse 61 12/20/2024 3:30 PM EST Temperature 36.4 ??C (97.6 ??F) 12/20/2024 3:30 PM ES T Respiratory Rate 20 12/20/2024 3:30 PM EST Oxygen Saturation 97% 12/20/2024 3:30 PM EST Inhaled Oxygen Concentration - - Weight 78 kg (172 lb) 12/20/2024 3:30 PM EST Height 162.6 cm (5' 4 ) 12/20/2024 3:30 PM EST Body Mass Index 29.52 12/20/2024 3:30 PM EST Plan of Treatment Upcoming Encounters Date Type Department Care Team (Late st Contact Info) Description 01/06/2025 8:30 AM EST Telemedicine [facility] [address] [place] [address] Munir Ruiz MD [address] [place] [address] 01/17/2025 9:00 AM EDT Clinical Support [facility] [address] [place] [address] Di Ulloa, ANA [address] [place] [address] 03/03/2025 1:30 PM EDT Office Visit [facility] [address] [place] [address] MartinTamica, OD [address] [place] [address] Health Maintenance Due Date Last Done Comments CT Colonography 1954 Colonoscopy 1954 FIT 1954 FOBT 1954 Sigmoidoscopy 1954 Alcohol/Substance Use Screening 1966 Zoster Vaccines (1 of 2) 2004 Depression Screening 09/13/2025 09/13/2024, 09/13/20 24 Diabetes: Hemoglobin A1C 09/13/2025 09/13/2024 SDOH Screening 09/13/2025 09/13/2024 Mammogram 11/13/2025 11/13/2023 Tobacco Screening 12/20/2025 12/20/2024 Colorectal Cancer Screening 11/10/2026 FIT DNA/Cologuard 11/10/2026 11/10/2023 Lipid Panel 08/23/2029 08/23/2024, 09/18/2023 DTaP/Tdap/Td Vaccines (2 - Td or Tdap) 04/16/2030 04/16/2020, 04/03/2003 RSV Patients and Patients Aged 60 years or older Completed 09/09/2023 Hepatitis C Screening Completed 09/18/2023 Influenza Vaccine Completed 08/05/2024, , 08/11/2022, Additional history exists COVID-19 Vaccine Completed 09/13/2024, , 08/30/2021, Additional history exists Pneumococcal Vaccine: 50+ Years Completed 09/13/2024, 08/02/2013 HIB Vaccines Aged Out No longer eligi ble based on patient's age to complete this topic HPV Vaccines Aged Out No longer eligi ble based on patient's age to complete this topic Hepatitis A Vaccines Aged Out No long er eligible based on patient's age to complete this topic Hepatitis B Vaccines Aged Out No long er eligible based on patient's age to complete this topic IPV Vaccines Aged Out No longer eligi ble based on patient's age to complete this topic Meningococcal Vaccine Aged Out No nydia milton eligible based on patient's age to complete this topic RSV under 20 months Aged Out No longe r eligible based on patient's age to complete this topic Rotavirus Vaccines Aged Out No longer eligible based on patient's age to complete this topic Procedures Procedure Name Priority Date/Time Associated Diagnosis Comments POCT SANTO-14 URINE DRUG SCREEN Routine 10/20/2024 9:44 AM EST Chronic pain syndrome POCT GLYCATED HEMOGLOBIN, TOTAL Routine 09/13/2024 2:46 PM EST Elevated glucose LIPID PANEL, STANDARD Routine 08/23/2024 10:05 AM EDT Mixed hyperlipidemia HM MAMMOGRAPHY Routine 11/13/2023 11:54 AM EST LAB COLOGUARD?? COLON CANCER SCREEN Routine 11/10/2023 10:10 AM EST Screening for colon cancer HEPATITIS C AB W/REFL TO HCV RNA, QN, PCR Routine 09/18/2023 8:37 AM EST Benign hypertension from Last 3 Months or Most Recently Relevant to Health Maintenance Results * POCT SANTO-14 Urine Drug Screen (10/20/2024 9:44 AM EST) Benzodiazepines Screen, Urine Positive Oxycodone Screen, Urine Positive Urine Urine specimen obtained by clean catch procedure / Unknown 10/20/2024 9:44 AM EST Narrative Di Ulloa RN - 10/20/2024 9:44 AM EST Lot# [id number] Exp: 10-08-25 Munir Massey MD POINT OF CARE TEST ENTER/EDIT ORDERABLES Final Result * POCT HGB A1C (09/13/2024 2:46 PM EST) Hemoglobin A1C 6.0 4.0 - 6.0 % QC Media Lot # [id number] Lot# Expiration Date 654 Blood 09/13/2024 2:46 PM EST Munir Massey MD POINT OF CARE TEST ENTER/EDIT ORDERABLES Final Result * Lipid Panel, Standard (08/23/2024 10:05 AM EDT) Triglycerides 87 <150 mg/dL [facility] Comment:Desirable Triglyceri de: less than 150 mg/dLBorderline High Triglyceride 150-199 mg/dLHigh Triglyceride: 200-499 mg/dLVery High Triglyceride: greater than or equal to 5OO mg/dL Cholesterol 147 <200 mg/dL [facility] Comment:Desirable Cholestero l: less than 200 mg/dLBorderline High Cholesterol: 200-239 mg/dLHigh Cholesterol: greater than 239 mg/dL LDL Cholesterol Calculated 85 <100 mg/dL [facility] Comment:Desirable LDL: less than 100 mg/dLNear Optimal/Above Optimal LDL: 110- 129 mg/dLBorderline High LDL: 130-159 mg/dLHigh LDL: 160-189 mg/dLVery High LDL: greater than or equal to 190 mg/dL HDL Cholesterol 45 >40 mg/dL [facility] Comment:Desirable HDL: great er than 40 mg/dL Note: This HDL assay may give artificially low results in patients with liver disease. Blood Venous blood specimen / Unknown 08/23/2024 10:05 AM EDT 08/23/2024 11:04 AM EDT Munir Massey MD LAB BLOOD ORDERABL ES Final Result [facility] [address] [place] [address] [phone] * Hm Mammography (11/13/2023 11:54 AM EST) Anatomical Region Laterality Modality Other Historical Provider HEALTH MAINTENANCE Final Result * Cologuard?? colon cancer screening (11/10/2023 10:10 AM EST) Cologuard Result Negative Negative 11/27/19 10:38 AM EST [facility] (CLIA #:[id number]) Comment: NEGATIVE TEST RESULT. A negative Cologuard result indicates a low likelihood that a colorectal cancer (CRC) or advanced adenoma (adenomatous polyps with more advanced pre-malignant features) ??is present. The chance that a person with a negative Cologuard test has a colorectal cancer is less than 1 in 1500 (negative predictive value >99.9%) or has an ??advanced adenoma is less than ??5.3% (negative predictive value 94.7%). These data are based on a prospective cross-sectional study of 10,000 individuals at average risk for colorectal cancer who were screened with both Cologuard and colonoscopy. (Bhavik Schaefer al, N Engl J Med 2014;370(14):1286- 1297) The normal value (reference range) for this assay is negative. COLOGUARD RE-SCREENING RECOMMENDATION: Periodic colorectal cancer screening is an important part of preventive healthcare for asymptomatic individuals at average risk for colorectal cancer. ??Following a negative Cologuard result, the [place] Cancer Society and U.S. Multi-Society Task Force screening guidelines recommend a Cologuard re-screening interval of 3 years. References: [place] Cancer Society Guideline for Colorectal Cancer Screening: https://www.cancer.org/cancer/wvaob-xuphay-lggekl/rfanpdsdn-wjnwhvicv-ijdblmy/ac s-rec ommendations.html.; Yan DK, Herminio CR, Priyanka SharpK, Colorectal Cancer Screening: Recommendations for Physicians and Patients from the U.S. Multi-Society Task Force on Colorectal Cancer Screening , Am J Gastroenterology 2017; 112:1266-4596. TEST DESCRIPTION: Composite algorithmic analysis of stool DNA-biomarkers with hemoglobin immunoassay. ?? Quantitative values of individual biomarkers are not reportable and are not associated with individual biomarker result reference ranges. Cologuard is intended for colorectal cancer screening of adults of either sex, 45 years or older, who are at average-risk for colorectal cancer (CRC). Cologuard has been approved for use by the U.S. FDA. The performance of Cologuard was established in a cross sectional study of average-risk adults aged 50-84. Cologuard performance in patients ages 45 to 49 years was estimated by sub-group analysis of near-age groups. Colonoscopies performed for a positive result may find as the most clinically significant lesion: colorectal cancer [4.0%], advanced adenoma (including sessile serrated polyps greater than or equal to 1cm diameter) [20%] or non- advanced adenoma [31%]; or no colorectal neoplasia [45%]. These estimates are derived from a prospective cross-sectional screening study of 10,000 individuals at average risk for colorectal cancer who were screened with both Cologuard and colonoscopy. (Bhavik Villalpando. et al, N Engl J Med 2014;370(14):8388-0110.) Cologuard may produce a false negative or false positive result (no colorectal cancer or precancerous polyp present at colonoscopy follow up). A negative Cologuard test result does not guarantee the absence of CRC or advanced adenoma (pre-cancer). The current Cologuard screening interval is every 3 years. ([place] Cancer Society and U.S. Multi-Society Task Force). Cologuard performance data in a 10,000 patient pivotal study using colonoscopy as the reference method can be accessed at the following location: www.[employer].com/results. Additional description of the Cologuard test process, warnings and precautions can be found at www.[employer].com. Stool specimen (specimen) 11/10/2023 10:10 AM EST 11/11/2023 2:32 PM EST Munir Massey MD LAB MOLECULAR DIAG NOSTICS ORDERABLES Final Result [facility] (CLIA #:[id number]) [place] [address], * Hepatitis C Antibody with Reflex to HCV, RNA, Quantitative, Real-Time PCR (09/18/2023 8:37 AM EST) Hepatitis C Antibody Nonreactive Nonreactive [facility] Comment:Antibodies to HCV no t detected; does not exclude early acuteHCV infection. Blood Venous blood specimen / Unknown 09/18/2023 8:37 AM EST 09/18/2023 2:26 PM EST Munir Massey MD LAB BLOOD ORDERABL ES Final Result Performing Organization Address [facility] Co de Phone Number [facility] [address] [place] [address] [phone] from Last 3 Months or Most Recently Relevant to Health [place] [address] [place] [phone] Care Teams Dimensional Inspector Relationship Specialty Start Date End Date Munir Ruiz MD [address] [place] [address] [place] [address] PCP - General Internal Medicine 10/12/23
--- OUTSIDE RECORDS SUMMARY | 2024-12-21 15:35 | XMS_ITS | Encounter Summary ---
Author Organization [employer] Address [address] [facility] [address] [place] [address] Care Team Providers Care Nailhead Operator Name Role Phone Munir Ruiz MD Primary Care Prov ider Reason for Visit * Reason Onset Date Comments Med Refill 12/07/2023 Encounter Details Date Type Department Care Team (Late st Contact Info) Description 12/07/2023 Telephone [facility] [address] [place] [address] Munir Ruiz MD [address] [place], [place] [phone] Med Refill Social History Tobacco Use Types [...] encounter Miscellaneous Notes * Telephone Encounter - Tyshawn Elizabeth - 12/07/2023 1:11 PM EST Tc from pt requesting a refill for LORazepam (Ativan) 1 MG tablet documented in this encounter Plan of Treatment Upcoming Encounters Date Type Department Care Team (Late st Contact Info) Description 01/06/2025 8:30 AM EST Telemedicine [facility] [address] [place] [address] Munir Ruiz MD [address] [place] [address] 01/17/2025 9:00 AM EDT Clinical Support [facility] [address] [place] [address] Di Ulloa RN [address] [place] [address] 03/03/2025 1:30 PM EDT Office Visit [facility] [address] [place], [place] [phone] Tamica Salazar, OD [address] [place] [address] documented as of this encounter Visit Diagnoses Not on filedocumented in this encounter Additional Health Concerns Assessment Noted Time PHQ-9 Depression Total Score: 3 08/28/20 23 8:58 AM EDT documented as of this encounter Care Teams Nailhead Operator Relationship Specialty Start Date End Date Munir Ruiz MD [address] [place] [phone] PCP - General Internal Medicine 10/12/23 documented as of this encounter
--- OUTSIDE RECORDS SUMMARY | 2024-12-21 15:35 | XMS_ITS | Encounter Summary ---
Author Organization [employer] Address 75 [facility] 7t [place] [address] Care Team Providers Care Ironworker Apprentice Shop Name Role Phone Munir Ruiz MD Primary Care Prov ider Encounter Details Date Type Department Care Team (Late st Contact Info) Description 11/20/2023 Orders Only [facility] MED & PEDS [address] [place], [place] [phone] Munir Ruiz MD 505 [place] [address] Social History Tobacco Use Types Packs/Day Years [...] Info) Description 01/06/2025 8:30 AM EST Telemedicine [facility] MED & PEDS 505 [place] [address] Munir Ruiz MD 505 [place] [address] 01/17/2025 9:00 AM EDT Clinical Support [facility] MED & PEDS 505 [place] [address] Di Ulloa, RN 505 [place] [address] 03/03/2025 1:30 PM EDT Office Visit [facility] OPTOMETRY [address] [place] [address] Martin, Tamica, OD [address] [place] [address] documented as of this encounter Visit Diagnoses Not on filedocumented in this encounter Additional Health Concerns Assessment Noted Time PHQ-9 Depression Total Score: 3 08/28/20 8:58 AM EDT documented as of this encounter Care Teams Ironworker Apprentice Shop Relationship Specialty Start Date End Date Munir Ruiz MD 505 [place] [address] PCP - General Internal Medicine 10/12/23 documented as of this encounter
--- OUTSIDE RECORDS SUMMARY | 2024-12-21 15:35 | XMS_ITS | Encounter Summary ---
Author Organization [employer] Address 75 [facility] 7t [place] [address] Care Team Providers Care Oil Lease Broker Name Role Phone Munir Ruiz MD Primary Care Prov ider Reason for Visit * Reason Onset Date Comments Med Refill 12/14/2023 Encounter Details Date Type Department Care Team (Late st Contact Info) Description 12/14/2023 Refill [facility] MEDICINE 230 [place] [address] Munir Ruiz MD [address] [place], [place] [phone] Chronic pain syndrome Social History Tobacco Use Types Packs/Day Years [...] encounter Miscellaneous Notes * Telephone Encounter - Munir Massey MD - 12/15/2023 10:47 AM EST Sent oxycodone without tylenol * Telephone Encounter - Tyshawn Elizabeth - 12/14/2023 10:16 AM EST Tc from pt requesting a refill for oyCODONE-acetaminophen (Percocet) 5-325 MG tablet documented in this encounter Plan of Treatment Upcoming Encounters Date Type Department Care Team (Late st Contact Info) Description 01/06/2025 8:30 AM EST Telemedicine [facility] CHC MED & PEDS 505 [place] [address] Munir Ruiz MD 505 [place] [address] 01/17/2025 9:00 AM EDT Clinical Support [facility] MED & PEDS 505 [place] [address] Di Ulloa, RN 505 [place] [address] 03/03/2025 1:30 PM EDT Office Visit [facility] OPTOMETRY [address] [place] [address] Martin, Tamica, OD [address] [place] [address] documented as of this encounter Visit Diagnoses Diagnosis Chronic pain syndrome documented in this encounter Additional Health Concerns Assessment Noted Time PHQ-9 Depression Total Score: 3 08/28/20 23 8:58 AM EDT documented as of this encounter Care Teams Oil Lease Broker Relationship Specialty Start Date End Date Munir Ruiz MD [address] [place] [address] PCP - General Internal Medicine 10/12/23 documented as of this encounter
== END 2024-12-21 15:31 | disposition home or self-care (01) ==
LOC: HO.HHCX 15:30
PROVIDERS: Visit Provider Internal Medicine
DX: M25.521 Pain in right elbow (principal)
CPT/HCPCS: 73080

== ENCOUNTER → 2024-12-21 15:33 | Outpatient (BNV) | payer MEDICARE, SELFPAY | PROVIDERS: Visit Provider Radiology Diagnostic Radiology | DX: S59.901A Unspecified injury of right elbow, initial encounter (principal) | CPT/HCPCS: 73080 ==

== ENCOUNTER 2024-12-23 11:18 | Outpatient (AMB) | payer MEDICARE, SELFPAY ==
--- NOTE | 2024-12-23 11:29 | MHC.OFFVIS ---
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 Patient denies any pulmonary related concerns or complaints otherwise. [facility] Social History (Updated 12/23/24 @ 11:37 by Lulu Manley [facility]) Patient Tobacco Use Status: Former Tobacco user Years Smoked: quit more than 30 years ago Review of Systems Const Denies daytime sleepiness, Denies excessive sweating, Denies fatigue, Denies fever(s), Denies lethargy, Denies malaise, Denies night sweats, Denies snoring and Denies weight loss Eyes Denies blurry vision and Denies itchy eyes ENT Denies nasal congestion, Denies post nasal drip, Denies sinus pain, Denies sinus pressure and Denies other ( Thrush) Card Denies chest pain, Denies pedal edema, Denies dyspnea, Denies orthopnea and Denies paroxysmal nocturnal dyspnea Resp Denies cough, Denies hemoptysis, Denies excessive phlegm production, Denies dyspnea, Denies snoring and Denies wheezing GI Denies abdominal pain and Denies heartburn Musc Denies myalgias, Denies arthralgias and Denies joint swelling Skin/Breast Denies rash Neuro Denies memory loss and Denies seizure-like activity Psych Denies abnormal sleep pattern, Denies anxiety and Denies memory loss Endo Denies excessive sweating, Denies fatigue and Denies heat intolerance Marco/Lymph Denies easy bruising Aller/Immun Denies itchy eyes, Denies seasonal rhinorrhea and Denies wheezing Physical Exam Vital Signs: Last Vital Signs Pulse 88 12/23/24 11:30 BP 158/60 H 12/23/24 11:30 Pulse Ox 95 12/23/24 11:30 Oxygen Delivery Method Room Air 12/23/24 11:30 BMI result Body Mass Index 30.5 Const General: no acute distress and alert Nutritional Appearance: not obese Orientation/consciousness: Other orientation findings ( oriented) HEENT Head: Yes atraumatic Eyes General: appearance normal, both eyes and all related structures Sclerae: sclerae normal EOM: EOMs intact bilaterally Neck Neck: Yes supple Lymphatic: no lymphadenopathy noted Resp Effort & Inspection: normal respiratory effort and no use of accessory muscles Auscultation: clear to auscultation bilaterally Cardio Rate: regular rate Rhythm: regular rhythm Heart sounds: no gallops, no murmurs and no rubs Skin General skin exam: other ( warm) Extrem General: No clubbing, No cyanosis and No edema Assessment & Plan Assessment & Plan (1) Pulmonary nodule 1 cm or greater in diameter: Code(s): R91.1 - Solitary pulmonary nodule Category: Medical Plan: Will obtain PET-CT, and consider biopsy or radiologic follow-up dependent on the results. Orders: Orders PET CT fusion skull to thigh Today R91.1 - Solitary pulmonary nodule Coding Level of Care Code New Pt Level 3 (58389) Diagnoses Pulmonary nodule 1 cm or greater in diameter R91.1
[2024-12-23 11:30] VITALS: BP 158/60; PULSE 88; O2SAT 95; BMI 30.5
--- OUTSIDE RECORDS SUMMARY | 2024-12-23 12:24 | XMS_ITS | Encounter Summary ---
Author Organization [employer] Address 75 [facility] 7t [place] [address] Care Team Providers Care Infectious Disease Technician Name Role Phone Munir Ruiz MD Primary Care Prov ider Reason for Visit * Reason Onset Date Comments chart prep 11/30/2024 Encounter Details Date Type Department Care Team ([facility] st Contact Info) Description 11/30/2024 Telephone C [facility] MED [facility] PEDS [address] [place], [place] [phone] Munir Ruiz MD 505 [place] [address] chart prep Social History Tobacco Use Types [...] is your housing situation today? I have baeu ching 09/13/[address] you [...] [facility] MED & PEDS 505 [place] [address] Munir Ruiz MD 505 [place] [address] 01/17/2025 9:00 AM EDT Clinical Support [facility] MED & PEDS 505 [place] [address] Di Ulloa RN 505 [place] [address] 03/03/2025 1:30 PM EDT Office Visit [facility] OPTOMETRY [address] [place] [address] Tamica Salazar, OD [address] [place] [address] documented as of this encounter Visit Diagnoses Not on filedocumented in this encounter Additional Health Concerns Assessment Noted Time PHQ-9 Depression Total Score: 0 09/13/20 24 1:43 PM EST documented as of this encounter Care Teams Infectious Disease Technician Relationship Specialty Start Date End Date Munir Ruiz MD [address] [place] [address] PCP - General Internal Medicine 10/12/23 documented as of this encounter
--- OUTSIDE RECORDS SUMMARY | 2024-12-23 12:24 | XMS_ITS | Encounter Summary ---
Author Organization [employer] Address 75 [facility] 7t [place] [address] Care Team Providers Care Director Of Guidance Name Role Phone Munir Ruiz MD Primary Care Prov ider Reason for Visit * Reason Onset Date Comments Results 12/22/2024 Encounter Details Date Type Department Care Team (Late st Contact Info) Description 12/22/2024 Telephone C [facility]S [address] [place] [address] Tegan Villalba RN Results Social History Tobacco Use Types Packs/Day Years [...] encounter Miscellaneous Notes * Telephone Encounter - Tegan Villalba RN - 12/22/2024 2:17 PM EST TC placed to pt to inform of elbow XR results below showing no fractures of the joint. Pt advised that the imaging did show some bone spurs that may be a manifestation of arthritis. Pt confirmed thatguillermo has some residual pain of the elbow but is using NSAIDs as needed for the pain. Pt stated understanding of the results and will call back as needed ----- Message from Gabriella Castañeda MD sent at 12/22/2024 1:14 PM EST ----- Please inform Bridget her elbow xray did not show any fractures or arthritis or swelling in the joint. She has some bone spurs that may have developed after some elbow tendinitis or be a manifestationof arthritis. documented in this encounter Plan of Treatment Upcoming Encounters Date Type Department Care Team (Late st Contact Info) Description 01/06/2025 8:30 AM EST Telemedicine [facility] MED & PEDS 505 [place] [address] Munir Ruiz MD 505 [place] [address] 01/17/2025 9:00 AM EDT Clinical Support [facility] MED & PEDS 505 [place] [address] Di Ulloa RN 505 [place] [address] 03/03/2025 1:30 PM EDT Office Visit C OPTOMETRY [address] [place] [address] Tamica Salazar, OD [address] [place] [address] documented as of this encounter Visit Diagnoses Not on filedocumented in this encounter Additional Health Concerns Assessment Noted Time PHQ-9 Depression Total Score: 0 09/13/20 24 1:43 PM EST documented as of this encounter Care Teams Director Of Guidance Relationship Specialty Start Date End Date Munir Ruiz MD 505 [place] [address] PCP - General Internal Medicine 10/12/23 documented as of this encounter
--- OUTSIDE RECORDS SUMMARY | 2024-12-23 12:24 | XMS_ITS | Encounter Summary ---
Author Organization [employer] Address [address] [facility] [address] 7t [place] [address] Care Team Providers Care Coagulating Operator Name Role Phone Munir Ruiz MD Primary Care Prov ider Encounter Details Date Type Department Care Team (Late st Contact Info) Description 12/20/[address] [facility] WALK-IN CENTER 230 [place], [place] [phone] Larissa Sue MD 230 [place], [place] [phone] Social History Tobacco Use Types Packs/Day Years [...] PM EST See message below. call center agent provider Dr. Hankins placed order to [facility] pharmacy. RN called pt as [facility] would be closing soon, if can go to another pharmacy. Pt reports can rx be sent to [facility] and I can pick it up tomorrow as unable to obtain rx today. RN informed provider has sent to [facility] pharmacy. Pt verbalized understanding. Pt inquiring on [...] F/U as needed. RN will forward to [facility] team nurses to status check tomorrow. Incoming TC from after hours triage nurse Monserrat Keen reporting pt was seen by Dr. Castañeda and just left [facility] but rx was sent to [facility] pharmacy and closed...BP 200/84 and was informed provider was sending rx for pt to start. Rn verbally spoke with Dr. Sue regarding rx and provider in agreement and to queue rx to provider. RN confirmed pharmacy with nurse Monserrat and informed provider is wit h pt but in agreement to sent rx. Monserrat verbalized understanding and reports to send rx to [facility] Dr. Anton and she will call pt to inform. No further questions or concerns. Nurse Monserrat/pt to F/U as needed. documented in this encounter Plan of Treatment Upcoming Encounters Date Type Department Care Team (Late st Contact Info) Description 01/06/2025 8:30 AM EST Telemedicine [facility] MED & PEDS 505 [place] [address] Munir Ruiz MD 505 [place] [address] 01/17/2025 9:00 AM EDT Clinical Support [facility] MED & PEDS 505 [place] [address] Di Ulloa, ANA 505 [place] [address] 03/03/2025 1:30 PM EDT Office Visit [facility] OPTOMETRY [address] [place] [address] Tamica Salazar, OD [address] [place] [address] documented as of this encounter Visit Diagnoses Diagnosis Benign hypertension Essential hypertension, benign documented in this encounter Additional Health Concerns Assessment Noted Time PHQ-9 Depression Total Score: 0 09/13/20 24 1:43 PM EST documented as of this encounter Care Teams Coagulating Operator Relationship Specialty Start Date End Date Munir Ruiz MD [address] [place] [address] PCP - General Internal Medicine 10/12/23 documented as of this encounter
--- OUTSIDE RECORDS SUMMARY | 2024-12-23 12:24 | XMS_ITS | Encounter Summary ---
Author Organization [employer] Address 75 [facility] 7t [place] [address] Care Team Providers Care Rehabilitation Supervisor Name Role Phone Munir Ruiz MD Primary Care Prov ider Encounter Details Date Type Department Care Team (Late st Contact Info) Description 12/02/2024 Telephone [facility] CHC MED & PEDS [address] [place], [place] [phone] Munir Ruiz MD 505 [place] [address] Social History Tobacco Use Types Packs/Day Years [...] 01/06/2025 8:30 AM EST Telemedicine [facility] MED & PEDS 505 [place] [address] Munir Ruiz MD 505 [place] [address] 01/17/2025 9:00 AM EDT Clinical Support [facility] MED & PEDS 505 [place] [address] Di Ulloa RN 505 [place] [address] 03/03/2025 1:30 PM EDT Office Visit [facility] OPTOMETRY [address] [place] [address] Tamica Salazar, OD [address] [place] [address] documented as of this encounter Visit Diagnoses Not on filedocumented in this encounter Additional Health Concerns Assessment Noted Time PHQ-9 Depression Total Score: 0 09/13/20 24 1:43 PM EST documented as of this encounter Care Teams Rehabilitation Supervisor Relationship Specialty Start Date End Date Munir Ruiz MD [address] [place] [address] PCP - General Internal Medicine 10/12/23 documented as of this encounter
--- OUTSIDE RECORDS SUMMARY | 2024-12-23 12:24 | XMS_ITS | Encounter Summary ---
Author Organization [employer] Address 75 [facility] 7t [place] [address] Care Team Providers Care Order Clerk Name Role Phone Munir Ruiz MD Primary Care Prov ider Reason for Visit * Reason Onset Date Comments Med Refill 07/18/2024 Encounter Details Date Type Department Care Team (Late st Contact Info) Description 07/18/2024 Telephone [facility] MEDICINE 230 [place] [address] Munir Ruiz MD [address] [place], [place] [phone] Med Refill Social History Tobacco Use Types [...] immediate release tablet To be sent to: [facility] [address] [place] [address] documented in this encounter Plan of Treatment Upcoming Encounters Date Type Department Care Team (Late st Contact Info) Description 01/06/2025 8:30 AM EST Telemedicine [facility] MED & PEDS 505 [place] [address] Munir Ruiz MD 505 [place] [address] 01/17/2025 9:00 AM EDT Clinical Support [facility] MED & PEDS 505 [place] [address] Di Ulloa RN 505 [place] [address] 03/03/2025 1:30 PM EDT Office Visit [facility] OPTOMETRY [address] [place], [place] [phone] Tamica Salazar, OD [address] [place] [address] documented as of this encounter Visit Diagnoses Not on filedocumented in this encounter Additional Health Concerns Assessment Noted Time PHQ-9 Depression Total Score: 3 08/28/20 8:58 AM EDT documented as of this encounter Care Teams Order Clerk Relationship Specialty Start Date End Date Munir Ruiz MD [address] [place] [address] PCP - General Internal Medicine 10/12/23 documented as of this encounter
--- OUTSIDE RECORDS SUMMARY | 2024-12-23 12:24 | XMS_ITS | Encounter Summary ---
Author Organization [employer] Address 75 [facility] 7t [place] [address] Care Team Providers Care An/Syq 13 Nav/C2 Operator Name Role Phone Munir Ruiz MD Primary Care Prov ider Encounter Details Date Type Department Care Team (Late st Contact Info) Description 09/14/2024 Orders Only [facility] 230 [place] [address] Provider, MD Arjun Social History Tobacco Use [...] [facility] MED & PEDS 505 [place] [address] Munir Ruiz MD 505 [place] [address] 01/17/2025 9:00 AM EDT Clinical Support [facility] MED & PEDS 505 [place] [address] Di Ulloa, ANA 505 [place] [address] 03/03/2025 1:30 PM EDT Office Visit [facility] OPTOMETRY [address] [place] [address] Martin, Tamica, OD [address] [place] [address] documented as of this encounter Procedures Procedure [...] documented as of this encounter Care Teams An/Syq 13 Nav/C2 Operator Relationship Specialty Start Date End Date Munir Ruiz MD [address] [place] [address] PCP - General Internal Medicine 10/12/23 documented as of this encounter
--- OUTSIDE RECORDS SUMMARY | 2024-12-23 12:24 | XMS_ITS | Encounter Summary ---
Author Organization [employer] Address [address] [facility] [address] 7t [place] [address] Care Team Providers Care Winter Sports Manager Name Role Phone Munir Ruiz MD Primary Care Prov ider Encounter Details Date Type Department Care Team (Late st Contact Info) Description 12/20/2024 Orders Only [facility] WALK-IN CENTER 230 [place], [place] [phone] Chetan Hankins MD 230 [place], [place] [phone] Social History Tobacco Use Types Packs/Day Years [...] 01/06/2025 8:30 AM EST Telemedicine [facility] MED & PEDS 505 [place] [address] Munir Ruiz MD 505 [place] [address] 01/17/2025 9:00 AM EDT Clinical Support [facility] MED & PEDS 505 [place] [address] Di Ulloa, RN 505 [place] [address] 03/03/2025 1:30 PM EDT Office Visit [facility] OPTOMETRY [address] [place] [address] Martin, Tamica, OD [address] [place] [address] documented as of this encounter Visit Diagnoses Not on filedocumented in this encounter Additional Health Concerns Assessment Noted Time PHQ-9 Depression Total Score: 0 09/13/20 24 1:43 PM EST documented as of this encounter Care Teams Winter Sports Manager Relationship Specialty Start Date End Date Munir Ruiz MD 505 [place] [address] PCP - General Internal Medicine 10/12/23 documented as of this encounter
--- OUTSIDE RECORDS SUMMARY | 2024-12-23 12:24 | XMS_ITS | Encounter Summary ---
Author Organization [employer] Address [address] [facility] [address] 7t [place] [address] Care Team Providers Care Patient Assessment Coordinator Name Role Phone Munir Ruiz MD Primary Care Prov ider Reason for Visit * Reason Onset Date Comments Medication Question 07/18/2024 Encounter Details Date Type Department Care Team (Late st Contact Info) Description 07/18/2024 Telephone [facility] MEDICINE 230 [place] [address] Munir Ruiz MD [address] [place], [place] [phone] Medication Question Social History Tobacco Use Types [...] any questions you can contact pt at [phone]. documented in this encounter Plan of Treatment Upcoming Encounters Date Type Department Care Team (Late st Contact Info) Description 01/06/2025 8:30 AM EST Telemedicine [facility] MED & PEDS 505 [place] [address] Munir Ruiz MD 505 [place] [address] 01/17/2025 9:00 AM EDT Clinical Support [facility] MED & PEDS 505 [place] [address] Di Ulloa RN 505 [place] [address] 03/03/2025 1:30 PM EDT Office Visit [facility] OPTOMETRY [address] [place] [address] Tamica Salazar, OD [address] [place] [address] documented as of this encounter Visit Diagnoses Not on filedocumented in this encounter Additional Health Concerns Assessment Noted Time PHQ-9 Depression Total Score: 3 08/28/20 8:58 AM EDT documented as of this encounter Care Teams Patient Assessment Coordinator Relationship Specialty Start Date End Date Munir Ruiz MD [address] [place] [address] PCP - General Internal Medicine 10/12/23 documented as of this encounter
--- OUTSIDE RECORDS SUMMARY | 2024-12-23 12:24 | XMS_ITS | Encounter Summary ---
Author Organization [employer] Address 75 [facility] 7t [place] [address] Care Team Providers Care City Plant Supervisor Name Role Phone Munir Ruiz MD Primary Care Prov ider Reason for Visit * Reason Onset Date Comments Medication Question 12/21/2024 Patient need ing BP checked and to check BP machine Encounter Details Date Type Department Care Team ([facility] st Contact Info) Description 12/21/2024 Telephone [facility] [address] [place], [place] [phone] Alexa Sandoval, health administrator Question (Patient needing BP checked and to [...] bc 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 Patient has telehealth appointment today with provider. documented in this encounter Plan of Treatment Upcoming Encounters Date Type Department Care Team (Late st Contact Info) Description 01/06/2025 8:30 AM EST Telemedicine [facility] MED & PEDS 505 [place] [address] Munir Ruiz MD 505 [place] [address] 01/17/2025 9:00 AM EDT Clinical Support [facility] MED & PEDS 505 [place] [address] Di Ulloa, ANA 505 [place] [address] 03/03/2025 1:30 PM EDT Office Visit [facility] OPTOMETRY [address] [place] [address] Martin, Tamica, OD [address] [place] [address] documented as of this encounter Visit Diagnoses Not on filedocumented in this encounter Additional Health Concerns Assessment Noted Time PHQ-9 Depression Total Score: 0 09/13/20 24 1:43 PM EST documented as of this encounter Care Teams City Plant Supervisor Relationship Specialty Start Date End Date Munir Ruiz MD 505 [place] [address] PCP - General Internal Medicine 10/12/23 documented as of this encounter
--- OUTSIDE RECORDS SUMMARY | 2024-12-23 12:24 | XMS_ITS | Encounter Summary ---
Author Organization [employer] Address [address] [facility] 7t [place] [address] Care Team Providers Care Finance Vice President Name Role Phone Munir Ruiz MD Primary Care Prov ider Reason for Visit * Reason Onset Date Comments Nurse Triage 12/21/2024 Encounter Details Date Type Department Care Team (Late st Contact Info) Description 12/21/2024 Telephone [facility] MEDICINE 230 [place] [address] Munir Ruiz MD [address] [place], [place] [phone] Nurse Triage Social History Tobacco Use Types [...] BP remaining elevated. Patient seen yesterday in [facility]. Related to right elbow injury. BP elevated [...] 40mg andHCTZ 25mg. 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 Contact pt at [phone] documented in this encounter Plan of Treatment Upcoming Encounters Date Type Department Care Team ([facility] st Contact Info) Description 01/06/2025 8:30 AM EST Telemedicine [facility] MED & PEDS 505 [place] [address] Munir Ruiz MD 505 [place] [address] 01/17/2025 9:00 AM EDT Clinical Support [facility] MED & PEDS 505 [place] [address] Di Ulloa, ANA 505 [place] [address] 03/03/2025 1:30 PM EDT Office Visit [facility] OPTOMETRY [address] [place] [address] Tamica Salazar, OD 230 [facility] [place] [address] documented as of this encounter Visit Diagnoses Not on filedocumented in this encounter Additional Health Concerns Assessment Noted Time PHQ-9 Depression Total Score: 0 09/13/20 24 1:43 PM EST documented as of this encounter Care Teams Finance Vice President Relationship Specialty Start Date End Date Munir Ruiz MD 505 [place] [address] PCP - General Internal Medicine 10/12/23 documented as of this encounter
--- OUTSIDE RECORDS SUMMARY | 2024-12-23 12:24 | XMS_ITS | Encounter Summary ---
Author Organization [employer] Address [address] [facility] [address] 7[address] [place] [address] Care Team Providers Care Sports Physical Therapist Name Role Phone Munir Ruiz MD Primary [...] Info) Description 01/06/2025 8:30 AM EST Telemedicine [facility] MED & PEDS 505 [place] [address] Munir Ruiz MD 505 [place] [address] 01/17/2025 9:00 AM EDT Clinical Support [facility] MED & PEDS 505 [place] [address] Di Ulloa, ANA 505 [place] [address] 03/03/2025 1:30 PM EDT Office Visit [facility] OPTOMETRY [address] [place] [address] MartinTamica crawford, OD [address] [place] [address] documented as of this encounter Visit Diagnoses Not on filedocumented in this encounter Additional Health Concerns Assessment Noted Time PHQ-9 Depression Total Score: 0 09/13/20 24 1:43 PM EST documented as of this encounter Care Teams Sports Physical Therapist Relationship Specialty Start Date End Date Munir Ruiz MD 505 [place] [address] PCP - General Internal Medicine 10/12/23 documented as of this encounter
--- OUTSIDE RECORDS SUMMARY | 2024-12-23 12:24 | XMS_ITS | Encounter Summary ---
Author Organization [employer] Address 75 [facility] 7t [place] [address] Care Team Providers Care Product Handler Name Role Phone Munir Ruiz MD Primary Care Prov ider Reason for Visit * Reason Onset Date Comments Med Refill 12/20/2024 Encounter Details Date Type Department Care Team (Late st Contact Info) Description 12/20/2024 Refill [facility] MEDICINE 230 [place] [address] Munir Ruiz MD [address] [place], [place] [phone] Anxiety Social History Tobacco Use Types Packs/Day [...] 01/06/2025 8:30 AM EST Telemedicine [facility] MED & PEDS 505 [place] [address] Munir Ruiz MD 505 [place] [address] 01/17/2025 9:00 AM EDT Clinical Support [facility] MED & PEDS 505 [place] [address] Di Ulloa RN 505 [place] [address] 03/03/2025 1:30 PM EDT Office Visit [facility] OPTOMETRY [address] [place] [address] Tamica Salazar, OD [address] [place] [address] documented as of this encounter Visit Diagnoses Diagnosis Anxiety Anxiety state, unspecified documented in this encounter Additional Health Concerns Assessment Noted Time PHQ-9 Depression Total Score: 0 09/13/20 24 1:43 PM EST documented as of this encounter Care Teams Product Handler Relationship Specialty Start Date End Date Munir Ruiz MD [address] [place] [address] PCP - General Internal Medicine 10/12/23 documented as of this encounter
--- OUTSIDE RECORDS SUMMARY | 2024-12-23 12:24 | XMS_ITS | Encounter Summary ---
Author Organization [employer] Address 75 [facility] 7t [place] [address] Care Team Providers Care Office Director Name Role Phone Munir Ruiz MD Primary Care Prov ider Reason for Visit * Reason Onset Date Comments Referral 12/09/2024 Encounter Details Date Type Department Care Team ([facility] st Contact Info) Description 12/09/2024 Telephone [facility] MED [facility] PEDS 505 [place], [place] [phone] Munir Ruiz MD 505 [place] [address] Referral Social History Tobacco Use Types Packs/Day [...] she was referred to gastroenterology and pulmonary. Certified Registered Nurse Anesthetist advise will send a message to team nurse. Contact pt at [phone] documented in this encounter Plan of Treatment Upcoming Encounters Date Type Department Care Team (Late st Contact Info) Description 01/06/2025 8:30 AM EST Telemedicine [facility] MED & PEDS 505 [place] [address] Munir Ruiz MD 505 [place] [address] 01/17/2025 9:00 AM EDT Clinical Support [facility] MED & PEDS [address] [place], [place] [phone] Di Ulloa, RN 505 [place], [place] [phone] 03/03/2025 1:30 PM EDT Office Visit [facility] OPTOMETRY [address] [place], [place] [phone] MartinTamica crawford, OD [address] [place], [place] [phone] documented as of this encounter Visit Diagnoses Not on filedocumented in this encounter Additional Health Concerns Assessment Noted Time PHQ-9 Depression Total Score: 0 09/13/20 24 1:43 PM EST documented as of this encounter Care Teams Office Director Relationship Specialty Start Date End Date Munir Ruiz MD 505 [place] [address] PCP - General Internal Medicine 10/12/23 documented as of this encounter
--- OUTSIDE RECORDS SUMMARY | 2024-12-23 12:24 | XMS_ITS | Clinical Summary ---
Author Organization [employer] Address 75 [facility] 7t [place] [address] Care Team Providers Care Dining Room Captain Name Role Phone Munir Ruiz MD Primary [...] days. 14 tablet 12/21/19 25 025 Active oxyCODONE (Roxicodone) 5 MG immediate release [...] reinforced, will follow up in 8-12 months halfway (current) use of opiate analgesic 08/03 Overview (09/28/2024): Dx: chronic pain syndrome Rx: oxycodone 5mg TID orn Last PHYSICAL SECURITY SPECIALIST agreement: 3.15.24 Tier II (visit every 3 [...] Encounters Date Type Department Care Team Description 12/22/2024 Telephone [facility] MED & PEDS [address] [place] [address] Tegan Villalba, ANA Results 12/22/2024 Orders Only [facility] MED & PEDS [address] [place] [address] Garbiella Castañeda MD Right elbow pain 12/21/2024 11:15 AM EST Telemedicine [facility] MED & PEDS [address] [place] [address] Munir Ruiz MD Benign hypertension (Primary Dx) 12/21/2024 Orders Only [facility] MED & PEDS [address] [place] [address] Gabriella Castañeda MD 12/21/2024 Telephone [facility] MED & PEDS [address] [place] [address] Alexa Sandoval, pipelines manager Question (Patient needing BP checked and to check BP machine) 12/21/2024 Telephone [facility] MEDICINE 230 [place], [place] [phone] Munir Ruiz MD Nurse Triage 12/20/2024 3:40 PM EST Office Visit [facility] MED & PEDS [address] [place] [address] Gabriella Castañeda MD Olecranon bursitis of right elbow (Primary Dx); Right elbow pain; Uncontrolled hypertension 12/20/2024 Orders Only [facility] WALK-IN CENTER [address] [place] [address] Chetan Hankins MD 12/20/2024 Orders Only [facility] WALK[facility]IN CENTER [address] [place] [address] Chetan Hankins MD 12/20/2024 Telephone [facility] WALK[facility]ENTER [address] [place] [address] Larissa Sue MD 12/20/2024 Travel 12/20/2024 Refill [facility] MEDICINE [address] [place] [address] Munir Ruiz MD Anxiety 12/20/2024 Telephone [facility] MEDICINE [address] [place] [address] Munir Ruiz MD Nurse Triage 12/09/2024 Telephone [facility] MED & PEDS [address] [place] [address] Munir Ruiz MD Referral 12/02/2024 9:30 AM EST Telemedicine [facility] MED & PEDS [address] [place] [address] Munir Ruiz MD Benign hypertension (Primary Dx); Chronic pain syndrome; Acquired hypothyroidism; Oropharyngeal dysphagia; Lung nodule 12/02/2024 Telephone [facility] MED & PEDS [address] [place] [address] Munir Ruiz MD 12/02/2024 Travel 11/30/2024 Telephone [facility] MED & PEDS [address] [place] [address] Munir Ruiz MD chart prep 11/22/2024 Refill [facility] MED & PEDS [address] [place] [address] Munir Ruiz MD Anxiety 11/07/2024 Refill [facility] MEDICINE [address] [place] [address] Munir Ruiz MD Chronic pain syndrome 10/20/2024 9:30 AM EST Clinical Support [facility] MED & PEDS [address] [place] [address] Di Ulloa RN Chronic pain syndrome 10/20/2024 Travel 10/12/2024 Refill [facility] MED & PEDS [address] [place] [address] Munir Ruiz MD 10/10/2024 Refill [facility] MED & PEDS [address] [place] [address] Munir Ruiz MD Chronic pain syndrome; Anxiety 10/07/2024 Refill [facility] MEDICINE [address] [place] [address] Munir Ruiz MD Chronic pain syndrome 09/23/2024 Refill [facility] MEDICINE [address] [place] [address] Munir Ruiz MD Anxiety from Last 3 [...] PM EDT Sexual Orientation Don't know 07/30/2023 5 :43 PM EDT Last Filed Vital Signs Vital [...] Info) Description 01/06/2025 8:30 AM EST Telemedicine [facility] CH[facility] MED & PEDS [address] [place] [address] Munir Ruiz MD 505 [place] [address] 01/17/2025 9:00 AM EDT Clinical Support [facility] MED & PEDS [address] [place] [address] Di Ulloa, ANA 505 [place], [place] [phone] 03/03/2025 1:30 PM EDT Office Visit [facility] OPTOMETRY [address] [place] [address] Tamica Salazar, OD [address] [place] [address] Health Maintenance Due Date Last Done Comments [...] Procedure Name Priority Date/Time Associated Diagnosis Comments XR ELBOW 3+ VIEWS RIGHT Routine 12/21/2024 3:33 PM EST POCT SANTO-14 URINE DRUG SCREEN Routine 10/20/2024 [...] Recently Relevant to Health Maintenance Results * XR Elbow 3+ Views Right (12/21/2024 3:33 PM EST) Anatomical Region Laterality Modality Upper Extremities, Elbow Right Radiogr aphic Imaging 12/21/2024 3:33 PM EST Narrative 12/21/2024 4:08 PM EST ?[facility] ?[address] ?[place] [address] ?XRay Report ? Signed ? Patient: Bridget Jain ?MR#: [id number] ?? [id number] ? : 1955 ?Acct:[id number] ? Age/Sex: 69 / F ?ADM Date: 12/21/24 ? Loc: HO.HHCX ? Attending Dr: Gabriella Castañeda MD ? Ordering Physician: Gabriella Castañeda MD ?? Date of Service: 12/21/24 ?? Procedure(s): XR elbow RT min 3V ?? Accession Number(s): [id number] ? cc: Gabriella Castañeda MD ? EXAMINATION: ?? XR ELBOW, RIGHT ? CLINICAL INFORMATION: ?? INJURY ? COMPARISON: ?? None available. ? TECHNIQUE: ?? AP, lateral, and oblique views of the right elbow. ? FINDINGS: ?? No fracture, dislocation, or suspicious bone lesion. Normal alignment. ?? Joint spaces are preserved. ?? No evidence of joint effusion. ?? Small enthesophytes involving the lateral and medial epicondyles. ? Normal soft tissues. ? XR/XR elbow RT min 3V ?? IMPRESSION: ?? No acute findings right elbow. ? Electronically signed by: ??Aba King MD ??12/21/2024 04:05 PM EST RP ? Dictated By: ?Aba King MD ? Signed By: ?<Electronically signed by Aba King MD in OV> ?12/21/24 1605 ? DD/ 1533 ? TD/TT: 12/21/24 1600 ? Florist Manager: ? Procedure Note Kimberley Pulliam - 12/21/2024 [facility] [address] [place] [address] XRay Report Signed Patient: Bridget Jain AMR#: [id number] : 5Acct:[id number] Age/Sex: 69 / FADM Date: 12/21/24 Loc: HO.HHCX Attending Dr: Gabriella Castañeda MD Ordering Physician: Gabriella Castañeda MD Date of Service: 12/21/24 Procedure(s): XR elbow RT min 3V Accession Number(s): [id number] cc: Gabriella Castañeda MD EXAMINATION: XR ELBOW, RIGHT CLINICAL INFORMATION: INJURY COMPARISON: None available. TECHNIQUE: AP, lateral, and oblique views of the right elbow. FINDINGS: No fracture, dislocation, or suspicious bone lesion. Normal alignment. Joint spaces are preserved. No evidence of joint effusion. Small enthesophytes involving the lateral and medial epicondyles. Normal soft tissues. XR/XR elbow RT min 3V IMPRESSION: No acute findings right elbow. Electronically signed by: Aba King MD 12/21/2024 04:05 PM EST Dictated By: Aba King MD Signed By: <Electronically signed by Aba King MD in OV> 12/21/24 1605 DD/ 1533 TD/TT: 12/21/24 1600 Florist Manager: Gabriella Castañeda MD IMG XR PROCEDURES Final Resul t * POCT SANTO-14 Urine Drug Screen (10/20/2024 9:44 AM EST) Benzodiazepines Screen, Urine Positive Oxycodone Screen, Urine Positive Urine Urine specimen obtained by clean catch procedure / Unknown 10/20/2024 9:44 AM EST Di Akins RN - 10/20/2024 9:44 AM EST Lot# [id number] Exp: 10-08-25 Munir Massey MD POINT OF CARE TEST ENTER/EDIT ORDERABLES Final Result * POCT HGB A1C (09/13/2024 2:46 PM EST) Hemoglobin A1C 6.0 4.0 - 6.0 % QC Media Lot # [id number] Lot# Expiration Date Blood 09/13/2024 2:46 PM EST Munir Massey MD POINT OF CARE TEST ENTER/EDIT ORDERABLES Final Result * Lipid Panel, Standard (08/23/2024 10:05 AM EDT) Triglycerides 87 <150 mg/dL [facility] Comment:Desirable Triglyceri de: less than 150 mg/dLBorderline High Triglyceride 150-199 mg/dLHigh Triglyceride: 200-499 mg/dLVery High Triglyceride: greater than or equal to 5OO mg/dL Cholesterol 147 <200 mg/dL [facility] Comment:Desirable Cholestero l: less than 200 mg/dLBorderline High Cholesterol: 200-239 mg/dLHigh Cholesterol: greater than 239 mg/dL LDL Cholesterol Calculated 85 <100 mg/dL [facility] Comment:Desirable LDL: less than 100 mg/dLNear Optimal/Above Optimal LDL: 110- 129 mg/dLBorderline High LDL: 130-159 mg/dLHigh LDL: 160-189 mg/dLVery High LDL: greater than or equal to 190 mg/dL HDL Cholesterol 45 >40 mg/dL [facility] Comment:Desirable HDL: great er than 40 mg/dL Note: This HDL assay may give artificially low results in patients with liver disease. Blood Venous blood specimen / Unknown 08/23/2024 10:05 AM EDT 08/23/2024 11:04 AM EDT Munir Massey MD LAB BLOOD ORDERABL ES Final Result [facility] [address] [place] [phone] * Hm Mammography (11/13/2023 11:54 AM EST) Anatomical Region Laterality Modality Other Arjun King MD HEALTH MAINTENANCE Final Result * Cologuard?? colon cancer screening (11/10/2023 10:10 AM EST) Cologuard Result Negative Negative 11/27/19 10:38 AM EST [facility] (CLIA #:[id number]) Comment: NEGATIVE TEST RESULT. A negative Cologuard [...] Villalpando. et al, N Engl J Med 2014;370(14):1286- 1297) The normal value (reference range) for this assay is negative. COLOGUARD RE-SCREENING RECOMMENDATION: Periodic colorectal cancer screening is an important part of preventive healthcare for asymptomatic individuals at average risk for colorectal cancer. ??Following a negative Cologuard result, the [place] Cancer Society and U.S. Multi-Society Task Force screening guidelines recommend a Cologuard re-screening interval of 3 years. References: [place] [employer] Guideline for Colorectal Cancer Screening: https://www.cancer.org/cancer/ejnew-qsckza-lwczhs/seeppnzwg-wjvkzpryr-mtsrcsu/ac s-rec ommendations.html.; Yan HERNANDEZ, Herminio PONCE, Priyanka SharpK, Colorectal Cancer Screening: Recommendations for Physicians and Patients from the U.S. Multi-Society Task Force on Colorectal Cancer Screening , Am J Gastroenterology 2017; 112:5131-5309. TEST DESCRIPTION: Composite algorithmic analysis of stool [...] (Bhavik Schaefer al, N Engl J Med 2014;370(14):7950-2746.) Cologuard may produce a false negative or false positive result (no colorectal cancer or precancerous polyp present at colonoscopy follow up). A negative Cologuard test result does not guarantee the absence of CRC or advanced adenoma (pre-cancer). The current Cologuard screening interval is every 3 years. ([place] Cancer Society and U.S. Multi-Society Task Force). Cologuard performance data in a 10,000 patient pivotal study using colonoscopy as the reference method can be accessed at the following location: www.[employer]/results. Additional description of the Cologuard test process, warnings and precautions can be found at www.[employer].com. Stool specimen (specimen) 11/10/2023 10:10 AM EST 11/11/2023 2:32 PM EST Munir Massey MD LAB MOLECULAR DIAG NOSTICS ORDERABLES Final Result [facility] (CLIA #:[id number]) [address] [place] [address], * Hepatitis C Antibody with Reflex to HCV, RNA, Quantitative, Real-Time PCR (09/18/2023 8:37 AM EST) Hepatitis C Antibody Nonreactive Nonreactive [facility] Comment:Antibodies to HCV no t detected; does not exclude early acuteHCV infection. Blood Venous blood specimen / Unknown 09/18/2023 8:37 AM EST 09/18/2023 2:26 PM EST us Munir Massey MD LAB BLOOD ORDERABL ES Final Result [facility] [address] [place] [address] [phone] from Last 3 Months or Most Recently Relevant to Health Maintenance Insurance [employer] PPO Care Teams Dining Room Captain Relationship Specialty Start Date End Date Munir Ruiz MD [address] [place] [address] [place] [address] PCP - General Internal Medicine 10/12/23
--- OUTSIDE RECORDS SUMMARY | 2024-12-23 12:24 | XMS_ITS | Encounter Summary ---
Author Organization [employer] Address 75 [facility] 7t [place] [address] Care Team Providers Care Glass Beveller Name Role Phone Munir Ruiz MD Primary Care Prov ider Reason for Visit * Reason Onset Date Comments Nurse Triage 12/20/2024 Encounter Details Date Type Department Care Team (Late st Contact Info) Description 12/20/2024 Telephone [facility] MEDICINE 230 [place] [address] Munir Ruiz MD [address] [place] [address] Nurse Triage Social History Tobacco Use Types [...] to get better and was seen at [facility] for clavicle no surgery indicated. Patient reports [...] EST Telemedicine [facility] MED & PEDS [address] [place] [address] Munir Ruiz MD 505 [place] [address] 01/17/2025 9:00 AM EDT Clinical Support [facility] MED & PEDS 505 [place] [address] Di Ulloa, ANA 505 [place] [address] 03/03/2025 1:30 PM EDT Office Visit [facility] OPTOMETRY [address] [place] [address] Tamica Salazar, OD [address] [place] [address] documented as of this encounter Visit Diagnoses Not on filedocumented in this encounter Additional Health Concerns Assessment Noted Time PHQ-9 Depression Total Score: 0 09/13/20 24 1:43 PM EST documented as of this encounter Care Teams Glass Beveller Relationship Specialty Start Date End Date Munir Ruiz MD 505 [place] [address] PCP - General Internal Medicine 10/12/23 documented as of this encounter
--- OUTSIDE RECORDS SUMMARY | 2024-12-23 12:24 | XMS_ITS | Encounter Summary ---
Author Organization [employer] Address [address] [facility] [address] 7t [place] [address] Care Team Providers Care Welding Machine Operator Ultrasonic Name Role Phone Munir Ruiz MD Primary Care Prov ider Encounter Details Date Type Department Care Team (Late st Contact Info) Description 12/20/2024 Orders Only [facility] 230 [place], [place] [phone] Chetan Hankins MD 230 [place], [place] [phone] Social History Tobacco Use Types Packs/Day Years [...] Info) Description 01/06/2025 8:30 AM EST Telemedicine [facility] MED & PEDS 505 [place] [address] Munir Ruiz MD 505 [place] [address] 01/17/2025 9:00 AM EDT Clinical Support [facility] MED & PEDS 505 [place] [address] Di Ulloa, RN 505 [place] [address] 03/03/2025 1:30 PM EDT Office Visit [facility] OPTOMETRY [address] [place] [address] Martin, Tamica, OD [address] [place] [address] documented as of this encounter Visit Diagnoses Not on filedocumented in this encounter Additional Health Concerns Assessment Noted Time PHQ-9 Depression Total Score: 0 09/13/20 24 1:43 PM EST documented as of this encounter Care Teams Welding Machine Operator Ultrasonic Relationship Specialty Start Date End Date Munir Ruiz MD 505 [place] [address] PCP - General Internal Medicine 10/12/23 documented as of this encounter
--- OUTSIDE RECORDS SUMMARY | 2024-12-23 12:24 | XMS_ITS | Encounter Summary ---
Author Organization [employer] Address [address] [facility] [address] 7t [place] [address] Care Team Providers Care Retail Loan Originator Name Role Phone Munir Ruiz MD Primary Care Prov ider Encounter Details Date Type Department Care Team (Late st Contact Info) Description 12/20/2024 3:40 PM EST Office Visit [facility] MED & PEDS 505 [place], [place] [phone] Gabriella Castañeda MD 505 [place] [address] Olecranon bursitis of right elbow (Primary Dx); [...] left arm twice daily. Call nurses at [facility] to report your BP tomorrow afternoon. Today [...] 2.5 mg/day (Rx sent) today and call [facility] nurses tomorrow with home BP readings. Will need to bring her home BP machine in at some point to see if it correlates with office BP readings. Future Appointments Date Time Provider Department Center 01/17/2025 9:00 AM Di Ulloa RN [facility] MED [facility] 03/03/2025 1:30 PM Tamica Salazar OD [facility] documented in this encounter Plan of Treatment Upcoming Encounters Date Type Department Care Team (Late st Contact Info) Description 01/06/2025 8:30 AM EST Telemedicine [facility] MED & PEDS 505 [place] [address] Munir Ruiz MD 505 [place] [address] 01/17/2025 9:00 AM EDT Clinical Support [facility] MED & PEDS 505 [place] [address] Di Ulloa RN 505 [place] [address] 03/03/2025 1:30 PM EDT Office Visit [facility] OPTOMETRY [address] [place] [address] Tamica Salazar, CASS [address] [place] [address] Scheduled Orders Name Type Priority Associated Diagnoses [...] documented as of this encounter Care Teams Retail Loan Originator Relationship Specialty Start Date End Date Munir Ruiz MD [address] [place] [address] PCP - General Internal Medicine 10/12/23 documented as of this encounter
--- OUTSIDE RECORDS SUMMARY | 2024-12-23 12:24 | XMS_ITS | Encounter Summary ---
Author Organization [employer] Address 75 [facility] 7t [place] [address] Care Team Providers Care Remote Pilot Operator Name Role Phone Munir Ruiz MD Primary Care Prov ider Reason for Referral * Consultation (Routine) - Authorized Specialty Diagnoses / Procedures Referred By Roberto chowdary Referred To Contact Pulmonary Disease Diagnoses Lung nodule Munir Ruiz MD 505 [place] [address] Phone: tel: fax: [employer] [address] [place] [address] [place] [address] Phone: tel: fax: Referral ID Status Reason Start Date Expiration Date Visits Requested Visits Authorized [id number] Authorized Specialty Services Required 12/02/2024 12/02/2025 1 1 * Consultation (Routine) - Closed Specialty Diagnoses / Procedures Referred By Roberto chowdary Referred To Contact Gastroenterology Diagnoses Oropharyngeal dysphagia Munir Ruiz MD [address] [place] [address] Phone: tel: fax: [facility] Gastroenterology [address] [place], [place] Phone: tel: fax: Referral ID Status Reason Start Date Expiration Date V isits Requested Visits Authorized [id number] Closed Specialty Services Required 12/02/2024 12/02/2025 1 1 Encounter Details Date Type Department Care Team (Late st Contact Info) Description 12/02/2024 9:30 AM EST Telemedicine [facility] MED & PEDS [address] [place] [address] Munir Ruiz MD [address] [place] [address] Benign hypertension (Primary Dx); Chronic pain syndrome; [...] Notes * Assessment & Plan Note - Munri Massey MD - 12/02/2024 10:32 AM ESTAssociated [...] Info) Description 01/06/2025 8:30 AM EST Telemedicine [facility] MED & PEDS [address] [place] [address] Munir Ruiz MD 505 [place] [address] 01/17/2025 9:00 AM EDT Clinical Support [facility] MED & PEDS [address] [place] [address] Di Ulloa, ANA 505 [place] [address] 03/03/2025 1:30 PM EDT Office Visit [facility] OPTOMETRY [address] [place] [address] Tamica Salazar, OD [address] [place] [address] Scheduled Referrals Name Type Priority Associated Diagnoses [...] documented as of this encounter Care Teams Remote Pilot Operator Relationship Specialty Start Date End Date Munir Ruiz MD [address] [place] [address] PCP - General Internal Medicine 10/12/23 documented as of this encounter
--- OUTSIDE RECORDS SUMMARY | 2024-12-23 12:24 | XMS_ITS | Encounter Summary ---
Author Organization [employer] Address 75 [facility] 7t [place] [address] Care Team Providers Care Long Goods Drier Name Role Phone Munir Ruiz MD Primary Care Prov ider Reason for Visit * Reason Onset Date Comments Med Refill 09/12/2024 Encounter Details Date Type Department Care Team (Late st Contact Info) Description 09/12/2024 Telephone [facility] MEDICINE 230 [place] [address] Munir Ruiz MD [address] [place], [place] [phone] Med Refill Social History Tobacco Use Types [...] immediate release tablet To be sent to: [facility] - [address] documented in this encounter Plan of Treatment Upcoming Encounters Date Type Department Care Team ([facility] st Contact Info) Description 01/06/2025 8:30 AM EST Telemedicine [facility] MED & PEDS 505 [place] [address] Munir Ruiz MD 505 [place] [address] 01/17/2025 9:00 AM EDT Clinical Support [facility] MED & PEDS 505 [place] [address] Di Ulloa, ANA 505 [place] [address] 03/03/2025 1:30 PM EDT Office Visit [facility] OPTOMETRY [address] [place] [address] Tamica Salazar, OD [address] [place] [address] documented as of this encounter Visit Diagnoses Not on filedocumented in this encounter Additional Health Concerns Assessment Noted Time PHQ-9 Depression Total Score: 3 08/28/20 8:58 AM EDT documented as of this encounter Care Teams Long Goods Drier Relationship Specialty Start Date End Date Munir Ruiz MD [address] [place] [address] PCP - General Internal Medicine 10/12/23 documented as of this encounter
--- OUTSIDE RECORDS SUMMARY | 2024-12-23 12:24 | XMS_ITS | Encounter Summary ---
Author Organization [employer] Address 75 [facility] 7t [place] [address] Care Team Providers Care Director Distribution Name Role Phone Munir Ruiz MD Primary Care Prov ider Encounter Details Date Type Department Care Team (Late st Contact Info) Description 12/21/2024 11:15 AM EST Telemedicine [facility] MED & PEDS [address] [facility] [place] [phone] Munir Ruiz MD 505 [place] [address] Benign hypertension (Primary Dx) Social History Tobacco [...] Info) Description 01/06/2025 8:30 AM EST Telemedicine [facility] MED & PEDS 505 [place] [address] Munir Ruiz MD 505 [place] [address] 01/17/2025 9:00 AM EDT Clinical Support [facility] MED & PEDS 505 [place] [address] Di Ulloa, RN 505 [place], [place] [phone] 03/03/2025 1:30 PM EDT Office Visit [facility] OPTOMETRY [address] [place] [address] Martin, Tamica, OD [address] [place] [address] documented as of this encounter Visit Diagnoses Diagnosis Benign hypertension- Primary Essential hypertension, benign documented in this encounter Additional Health Concerns Assessment Noted Time PHQ-9 Depression Total Score: 0 09/13/20 24 1:43 PM EST documented as of this encounter Care Teams Director Distribution Relationship Specialty Start Date End Date Munir Ruiz MD 505 [place] [address] PCP - General Internal Medicine 10/12/23 documented as of this encounter
--- OUTSIDE RECORDS SUMMARY | 2024-12-23 12:24 | XMS_ITS | Encounter Summary ---
Author Organization [employer] Address [address] [facility] [address] 7t [place] [address] Care Team Providers Care Metaphysics Teacher Name Role Phone Munir Ruiz MD Primary [...] Info) Description 01/06/2025 8:30 AM EST Telemedicine [facility] CH[facility] MED & PEDS 505 [place] [address] Munir Ruiz MD 505 [place] [address] 01/17/2025 9:00 AM EDT Clinical Support [facility] MED & PEDS 505 [place] [address] Di Ulloa, ANA 505 [place] [address] 03/03/2025 1:30 PM EDT Office Visit [facility] OPTOMETRY [address] [place] [address] MartinTamica crafword, OD [address] [place] [address] documented as of this encounter Visit Diagnoses Not on filedocumented in this encounter Additional Health Concerns Assessment Noted Time PHQ-9 Depression Total Score: 0 09/13/20 24 1:43 PM EST documented as of this encounter Care Teams Metaphysics Teacher Relationship Specialty Start Date End Date Munir Ruiz MD 505 [place] [address] PCP - General Internal Medicine 10/12/23 documented as of this encounter
--- OUTSIDE RECORDS SUMMARY | 2024-12-23 12:25 | XMS_ITS | Encounter Summary ---
Author Organization [employer] Address 75 [facility] 7t [place] [address] Care Team Providers Care Qc Manager Name Role Phone Munir Ruiz MD Primary Care Prov ider Encounter Details Date Type Department Care Team (Late st Contact Info) Description 12/22/2024 Orders Only [facility] CH[facility] MED & PEDS 505 [place], [place] [phone] Gabriella Castañeda MD 505 [place] [address] Right elbow pain Social History Tobacco Use Types Packs/Day Years [...] 01/06/2025 8:30 AM EST Telemedicine [facility] MED & PEDS 505 [place] [address] Munir Ruiz MD 505 [place] [address] 01/17/2025 9:00 AM EDT Clinical Support [facility] MED & PEDS 505 [place] [address] Di Ulloa, ANA 505 [place] [address] 03/03/2025 1:30 PM EDT Office Visit [facility] OPTOMETRY [address] [place] [address] Tamica Salazar, OD 230 [facility] [place] [address] Scheduled Orders Name Type Priority Associated Diagnoses Orde r Schedule XR Elbow 3+ Views Right Imaging Routine Right elbow pain Expected: 12/22/2024, Expires: 12/22/2025 documented as of this encounter Visit Diagnoses Diagnosis Right elbow pain Pain in joint, upper arm documented in this encounter Additional Health Concerns Assessment Noted Time PHQ-9 Depression Total Score: 0 09/13/20 24 1:43 PM EST documented as of this encounter Care Teams Qc Manager Relationship Specialty Start Date End Date Munir Ruiz MD [address] [place] [address] PCP - General Internal Medicine 10/12/23 documented as of this encounter
--- OUTSIDE RECORDS SUMMARY | 2024-12-23 12:25 | XMS_ITS | Encounter Summary ---
Author Organization [employer] Address 75 [facility] 7t [place] [address] Care Team Providers Care Oil Burner Journeyman Name Role Phone Munir Ruiz MD Primary Care Prov ider Reason for Visit * Reason Onset Date Comments New Patient 07/30/2023 Encounter Details Date Type Department Care Team (Late st Contact Info) Description 07/30/2023 Telephone [facility] MEDICINE 230 [place] [address] Munir Ruiz MD 505 [place] [address] New Patient Social History Tobacco Use Types [...] EDT PEYTON Zuniga called pt to Offer COPIER TECHNICIAN appt. Pt demographics and insurance information were verified. Pt reports the following medical conditions: HBP, High Cholesterol, Cancer low risk. Pt is currently taking medication: Yes (advised to communicate on day of appt) Pt given COPIER TECHNICIAN appt with Dr. Thompson on 08/24/2023 @ 9:00 am. Pt will be sent appt reminder card and medical release form and agrees to complete and to return to medical records prior to COPIER TECHNICIAN appt. documented in this encounter Plan of Treatment Upcoming Encounters Date Type Department Care Team (Late st Contact Info) Description 01/06/2025 8:30 AM EST Telemedicine [facility] MED & PEDS 505 [place] [address] Munir Ruiz MD 505 [place] [address] 01/17/2025 9:00 AM EDT Clinical Support [facility] MED & PEDS 505 [place] [address] Di Ulloa, ANA 505 [place], [place] [phone] 03/03/2025 1:30 PM EDT Office Visit [facility] OPTOMETRY [address] [place] [address] Tamica Salazar, OD [address] [place] [address] documented as of this encounter Visit Diagnoses Not on filedocumented in this encounter Care Teams Oil Burner Journeyman Relationship Specialty Start Date End Date Munir Ruiz MD 505 [place] [address] PCP - General Internal Medicine 10/12/23 documented as of this encounter
--- OUTSIDE RECORDS SUMMARY | 2024-12-23 12:25 | XMS_ITS | Encounter Summary ---
Author Organization [employer] Address [address] [facility] [address] 7t [place] [address] Care Team Providers Care Criminal Investigator Name Role Phone Munir Ruiz MD Primary Care Prov ider Reason for Visit * Reason Onset Date Comments Call Back Request 03/14/2024 Encounter Details Date Type Department Care Team (Late st Contact Info) Description 03/14/2024 Telephone [facility] MEDICINE 230 [place] [address] Munir Ruiz MD [address] [place], [place] [phone] Call Back Request Social History Tobacco Use [...] Pt wants to clarify scheduling routine for DETECTIVE SUPERVISOR visits. Pt was sure it was every other month but is confused due to upcoming appt on 04/15 after alreadybeing seen this month on 03/11. If any questions please contact pt at [phone]. documented in this encounter Plan of Treatment Upcoming Encounters Date Type Department Care Team (Late st Contact Info) Description 01/06/2025 8:30 AM EST Telemedicine [facility] MED & PEDS 505 [place] [address] Munir Ruiz MD 505 [place] [address] 01/17/2025 9:00 AM EDT Clinical Support [facility] MED & PEDS 505 [place] [address] Di Ulloa RN 505 [place] [address] 03/03/2025 1:30 PM EDT Office Visit [facility] OPTOMETRY 267 [place] [address] Tamica Salazar, OD [address] [place] [address] documented as of this encounter Visit Diagnoses Not on filedocumented in this encounter Additional Health Concerns Assessment Noted Time PHQ-9 Depression Total Score: 3 08/28/20 8:58 AM EDT documented as of this encounter Care Teams Criminal Investigator Relationship Specialty Start Date End Date Munir Ruiz MD [address] [place] [address] PCP - General Internal Medicine 10/12/23 documented as of this encounter
--- OUTSIDE RECORDS SUMMARY | 2024-12-23 12:25 | XMS_ITS | Encounter Summary ---
Author Organization [employer] Address 75 [facility] 7t [place] [address] Care Team Providers Care Baseball Umpire For Little League Name Role Phone Munir Ruiz MD Primary Care Prov ider Reason for Visit * Reason Onset Date Comments Med Refill 12/14/2023 Encounter Details Date Type Department Care Team (Late st Contact Info) Description 12/14/2023 Refill [facility] MEDICINE 230 [place] [address] Munir Ruiz MD [address] [place], [place] [phone] Chronic pain syndrome Social History Tobacco Use [...] Info) Description 01/06/2025 8:30 AM EST Telemedicine [facility] MED & PEDS 505 [place] [address] Munir Ruiz MD 505 [place] [address] 01/17/2025 9:00 AM EDT Clinical Support [facility] MED & PEDS 505 [place] [address] Di Ulloa, RN 505 [place] [address] 03/03/2025 1:30 PM EDT Office Visit [facility] OPTOMETRY [address] [place] [address] Martin, Tamica, OD [address] [place] [address] documented as of this encounter Visit Diagnoses Diagnosis Chronic pain syndrome documented in this encounter Additional Health Concerns Assessment Noted Time PHQ-9 Depression Total Score: 3 08/28/20 23 8:58 AM EDT documented as of this encounter Care Teams Baseball Umpire For Little League Relationship Specialty Start Date End Date Munir Ruiz MD [address] [place] [address] PCP - General Internal Medicine 10/12/23 documented as of this encounter
--- OUTSIDE RECORDS SUMMARY | 2024-12-23 12:25 | XMS_ITS | Encounter Summary ---
Author Organization [email or web address] Address [address] [facility] [address] 7t [place] [address] Care Team Providers Care Desk Lieutenant Name Role Phone Munir Ruiz MD Primary Care Prov ider Reason for Visit * Reason Onset Date Comments Medication Question 10/19/2023 Encounter Details Date Type Department Care Team (Late st Contact Info) Description 10/19/2023 Telephone [facility] MEDICINE 230 [place] [address] Munir Ruiz MD [address] [place], [place] [phone] Medication Question Social History Tobacco Use Types [...] script for oxyCODONE-acetaminophen (Percocet) 5-325 MG tablet, [facility] only filled a 7 day supply. Please contact at [phone] documented in this encounter Plan of Treatment Upcoming Encounters Date Type Department Care Team (Late st Contact Info) Description 01/06/2025 8:30 AM EST Telemedicine [facility] MED & PEDS 505 [place] [address] Munir Ruiz MD 505 [place] [address] 01/17/2025 9:00 AM EDT Clinical Support [facility] MED & PEDS 505 [place] [address] Di Ulloa, ANA 505 [place] [address] 03/03/2025 1:30 PM EDT Office Visit [facility] OPTOMETRY [address] [place] [address] Tamica Salazar, OD [address] [place] [address] documented as of this encounter Visit Diagnoses Not on filedocumented in this encounter Additional Health Concerns Assessment Noted Time PHQ-9 Depression Total Score: 3 08/28/20 8:58 AM EDT documented as of this encounter Care Teams Desk Lieutenant Relationship Specialty Start Date End Date Munir Ruiz MD [address] [place] [address] PCP - General Internal Medicine 10/12/23 documented as of this encounter
--- OUTSIDE RECORDS SUMMARY | 2024-12-23 12:25 | XMS_ITS | Encounter Summary ---
Author Organization [employer] Address 75 [facility] 7t [place] [address] Care Team Providers Care Chore Tender Name Role Phone Munir Ruiz MD Primary Care Prov ider Encounter Details Date Type Department Care Team (Late st Contact Info) Description 11/20/2023 Orders Only [facility] CH[facility] MED & PEDS 505 [place], [place] [phone] Munir Ruiz MD 505 [place] [address] Social History Tobacco Use Types Packs/Day Years [...] [facility] MED & PEDS 505 [place] [address] Munir Ruiz MD 505 [place] [address] 01/17/2025 9:00 AM EDT Clinical Support [facility] MED & PEDS 505 [place] [address] Di Ulloa, RN 505 [place] [address] 03/03/2025 1:30 PM EDT Office Visit [facility] OPTOMETRY [address] [place] [address] Martin, Tamica, OD [address] [place] [address] documented as of this encounter Visit Diagnoses Not on filedocumented in this encounter Additional Health Concerns Assessment Noted Time PHQ-9 Depression Total Score: 3 08/28/20 8:58 AM EDT documented as of this encounter Care Teams Chore Tender Relationship Specialty Start Date End Date Munir Ruiz MD 505 [place] [address] PCP - General Internal Medicine 10/12/23 documented as of this encounter
--- OUTSIDE RECORDS SUMMARY | 2024-12-23 12:25 | XMS_ITS | Encounter Summary ---
Author Organization [employer] Address 75 [facility] 7t [place] [address] Care Team Providers Care Construction Recruiter Name Role Phone Munir Ruiz MD Primary Care Prov ider Reason for Visit * Reason Onset Date Comments Med Refill 12/07/2023 Encounter Details Date Type Department Care Team (Late st Contact Info) Description 12/07/2023 Telephone [facility] MEDICINE 230 [place] [address] Munir Ruiz MD [address] [place], [place] [phone] Med Refill Social History Tobacco Use Types [...] 8:30 AM EST Telemedicine [facility] MED & PEDS 505 [place] [address] Munir Ruiz MD 505 [place] [address] 01/17/2025 9:00 AM EDT Clinical Support [facility] MED & PEDS 505 [place] [address] Di Ulloa RN 505 [place] [address] 03/03/2025 1:30 PM EDT Office Visit [facility] OPTOMETRY [address] [place], [place] [phone] Tamica Salazar, OD [address] [place] [address] documented as of this encounter Visit Diagnoses Not on filedocumented in this encounter Additional Health Concerns Assessment Noted Time PHQ-9 Depression Total Score: 3 08/28/20 23 8:58 AM EDT documented as of this encounter Care Teams Construction Recruiter Relationship Specialty Start Date End Date Munir Ruiz MD [address] [place] [address] PCP - General Internal Medicine 10/12/23 documented as of this encounter
--- OUTSIDE RECORDS SUMMARY | 2024-12-23 12:25 | XMS_ITS | Encounter Summary ---
Author Organization [employer] Address 75 [facility] 7t [place] [address] Care Team Providers Care Service Dismantler Name Role Phone Munir Ruiz MD Primary Care Prov ider Encounter Details Date Type Department Care Team (Late st Contact Info) Description 09/22/2023 Orders Only [facility] CH[facility] MED & PEDS 505 [place], [place] [phone] Devon Smart MD 505 [place], [place] [phone] Benign hypertension (Primary Dx); Hypokalemia Social History [...] Info) Description 01/06/2025 8:30 AM EST Telemedicine [facility] MED & PEDS 505 [place] [address] Munir Ruiz MD 505 [place] [address] 01/17/2025 9:00 AM EDT Clinical Support [facility] MED & PEDS 505 [place] [address] Di Ulloa, ANA 505 [place], [place] [phone] 03/03/2025 1:30 PM EDT Office Visit [facility] OPTOMETRY [address] [place], [place] [phone] Martin, Tamica, OD [address] [place] [address] documented as of this encounter Procedures Procedure Name Priority Date/Time Associated Diagnosis Comments POTASSIUM Routine 10/12/2023 9:37 AM EST Hypokalemia documented in this encounter Results * Potassium (10/12/2023 9:37 AM EST) Potassium 3.3 3.3 - 5.1 mmol/L [facility] Blood Venous blood specimen / Unknown 10/12/2023 9:37 AM EST 10/12/2023 2:06 PM EST us Devon Smart MD LAB BLOOD ORDERABLES Final Result [facility] [address] [place] [address] [phone] documented in this encounter Visit Diagnoses Diagnosis Benign hypertension- Primary Essential hypertension, benign Hypokalemia Hypopotassemia documented in this encounter Additional Health Concerns Assessment Noted Time PHQ-9 Depression Total Score: 3 08/28/20 8:58 AM EDT documented as of this encounter Care Teams Service Dismantler Relationship Specialty Start Date End Date Munir Ruiz MD [address] [place] [address] PCP - General Internal Medicine 10/12/23 documented as of this encounter
--- OUTSIDE RECORDS SUMMARY | 2024-12-23 12:25 | XMS_ITS | Encounter Summary ---
Author Organization [employer] Address [address] [facility] [address] 7t [place] [address] Care Team Providers Care Political Director Name Role Phone Munir Ruiz MD Primary Care Prov ider Encounter Details Date Type Department Care Team (Late st Contact Info) Description 12/21/2024 Orders Only [facility] CH[facility] MED & PEDS 505 [place], [place] [phone] Gabriella Castañeda MD 505 [place] [address] Social History Tobacco Use Types Packs/Day Years [...] t he electric, gas, oil or water [employer] threatened to shut off services in your [...] Upcoming Encounters Date Type Department Care Team ([facility] st Contact Info) Description 01/06/2025 8:30 AM EST Telemedicine [facility] MED & PEDS [address] [place] [address] Munir Ruiz MD 505 [place] [address] 01/17/2025 9:00 AM EDT Clinical Support [facility] MED & PEDS 505 [place] [address] Di Ulloa, ANA 505 [place] [address] 03/03/2025 1:30 PM EDT Office Visit [facility] OPTOMETRY [address] [place] [address] Tamica Salazar, OD [address] [place] [address] documented as of this encounter Procedures Procedure Name Priority Date/Time Associated Diagnosis Comments XR ELBOW 3+ VIEWS RIGHT Routine 12/21/2024 3:33 PM EST documented in this encounter Results * XR Elbow 3+ Views Right (12/21/2024 3:33 PM EST) Anatomical Region Laterality Modality Upper Extremities, Elbow Right Radiogr aphic Imaging 12/21/2024 3:33 PM EST Narrative 12/21/2024 4:08 PM EST ?[facility] ?[address] ?[place] [address] ?XRay Report ? Signed ? Patient: Bartholomew Walker,Bridget A ?MR#: [id number] ?? [id number] ? : 1955 ?Acct:[id number] ? Age/Sex: 69 / F ?ADM Date: 12/21/24 ? Loc: HO.HHCX ? Attending Dr: Gabriella Castañeda MD ? Ordering Physician: Gabriella Castañeda MD ?? Date of Service: 12/21/24 ?? Procedure(s): XR elbow RT min 3V ?? Accession Number(s): [id number] ? cc: Gabriella Castañeda MD ? EXAMINATION: [...] DD/ 1533 ? TD/TT: 12/21/24 1600 ? [employer]: ? Procedure Note Heraclio, Image - 12/21/2024 [facility] [address] [place] [address] XRay Report Signed Patient: Bridget Jain AMR#: [id number] : 5Acct:[id number] Age/Sex: 69 / FADM Date: 12/21/24 Loc: HO.HHCX Attending Dr: Gabriella Castañeda MD Ordering Physician: Gabriella Castañeda MD Date of Service: 12/21/24 Procedure(s): XR elbow RT min 3V Accession Number(s): [id number] cc: Gabriella Castañeda MD EXAMINATION: XR ELBOW, [...] 12/21/24 1605 DD/ 1533 TD/TT: 12/21/24 1600 [employer]: Gabriella Castañeda MD IMG XR PROCEDURES Final Resul t documented in this encounter Visit Diagnoses Not on filedocumented in this encounter Additional Health Concerns Assessment Noted Time PHQ-9 Depression Total Score: 0 09/13/20 24 1:43 PM EST documented as of this encounter Care Teams Political Director Relationship Specialty Start Date End Date Munir Ruiz MD [address] [place] [address] PCP - General Internal Medicine 10/12/23 documented as of this encounter
== END 2024-12-23 11:51 | disposition home or self-care (01) ==
PROVIDERS: PCP Internal Medicine; Referring Provider Internal Medicine; Visit Provider Internal Medicine Pulmonary Disease
DX: R91.1 Solitary pulmonary nodule (principal)
CPT/HCPCS: 99203

== ENCOUNTER → 2024-12-23 11:18 | Outpatient (BNVA) | payer MEDICARE, SELFPAY | PROVIDERS: PCP Internal Medicine; Referring Provider Internal Medicine; Visit Provider Internal Medicine Pulmonary Disease | DX: R91.1 Solitary pulmonary nodule (principal) | CPT/HCPCS: 99202 ==

== ENCOUNTER 2025-02-07 12:54 | Outpatient (AMB) | payer MEDICARE, SELFPAY ==
[2025-02-07 13:05] VITALS: BMI 31.9
--- NOTE | 2025-02-07 13:05 | A.OFFVIS_ITS ---
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 Patient denies any pulmonary related concerns or complaints otherwise. After the last office visit patient had PET-CT that showed only minimal FDG activity in the index left lower lobe 1 cm nodule. [facility] Social History (Updated 12/23/24 @ 11:37 by Lulu Manley Conner) Patient Tobacco Use Status: Former Tobacco user Years Smoked: quit more than 30 years ago Review of Systems Const Denies daytime sleepiness, Denies excessive sweating, Denies fatigue, Denies fever(s), Denies lethargy, Denies malaise, Denies night sweats, Denies snoring and Denies weight loss Eyes Denies blurry vision and Denies itchy eyes ENT Denies nasal congestion, Denies post nasal drip, Denies sinus pain, Denies sinus pressure and Denies other ( Thrush) Card Denies chest pain, Denies pedal edema, Denies dyspnea, Denies orthopnea and Denies paroxysmal nocturnal dyspnea Resp Denies cough, Denies hemoptysis, Denies excessive phlegm production, Denies dyspnea, Denies snoring and Denies wheezing GI Denies abdominal pain and Denies heartburn Musc Denies myalgias, Denies arthralgias and Denies joint swelling Skin/Breast Denies rash Neuro Denies memory loss and Denies seizure-like activity Psych Denies abnormal sleep pattern, Denies anxiety and Denies memory loss Endo Denies excessive sweating, Denies fatigue and Denies heat intolerance Marco/Lymph Denies easy bruising Aller/Immun Denies itchy eyes, Denies seasonal rhinorrhea and Denies wheezing Physical Exam Vital Signs: BMI result Body Mass Index 31.9 Const General: no acute distress and alert Nutritional Appearance: not obese Orientation/consciousness: Other orientation findings ( oriented) HEENT Head: Yes atraumatic Eyes General: appearance normal, both eyes and all related structures Sclerae: sclerae normal EOM: EOMs intact bilaterally Neck Neck: Yes supple Lymphatic: no lymphadenopathy noted Resp Effort & Inspection: normal respiratory effort and no use of accessory muscles Auscultation: clear to auscultation bilaterally Cardio Rate: regular rate Rhythm: regular rhythm Heart sounds: no gallops, no murmurs and no rubs Skin General skin exam: other ( warm) Extrem General: No clubbing, No cyanosis and No edema Assessment & Plan Assessment & Plan (1) Pulmonary nodule 1 cm or greater in diameter: Code(s): R91.1 - Solitary pulmonary nodule Category: Medical Plan: Results of PET-CT reviewed, index 1 cm left lower lobe nodule with minimal FDG uptake, less concern for malignancy. Also, CT chest obtained in November of 2024 showed increase of only 5 mm since prior CAT scan in 2019. Dusts, even if it is a malignant nodule, it is likely an indolent process. Options for surgical biopsy, resection, and further imaging discussed with the patient with the decision made to continue with imaging follow-up with CT chest in 6 months, and if growing to proceed with surgical biopsy or resection at that time. All patient's questions answered. Orders: Orders CT chest wo IV con 07/30/25 R91.1 - Solitary pulmonary nodule Coding Level of Care Code Est Pt Level 4 (22213) Diagnoses Pulmonary nodule 1 cm or greater in diameter R91.1
--- OUTSIDE RECORDS SUMMARY | 2025-02-07 15:33 | XMS_ITS | Encounter Summary ---
Author Organization [employer] Address [address] [address] Care Team Providers Care Joint Supervisor Name Role Phone Munir Ruiz MD Primary Care Prov ider Reason for Visit * Reason Onset Date Comments Med Refill 09/12/2024 Encounter Details Date Type Department Care Team ([facility] st Contact Info) Description 09/12/2024 Telephone [facility] MEDICINE [address] [place] [address] Munir Ruiz MD [address] [place] [address] Med Refill Social History Tobacco Use Types [...] Female 07/30/2023 5:43 PM EDT Sexual Orientation Choose not to disclose 2024 9:40 AM EDT documented as of this encounter Miscellaneous Notes * Telephone Encounter - Randy Jordan - 09/12/2024 10:53 AM EST TC from pt requesting medication refill. Medications needing refill : oxyCODONE (Roxicodone) 5 MG immediate release tablet To be sent to: [facility] - [place], [place] - [address] [place] [address] documented in this encounter Plan of Treatment Upcoming Encounters Date Type Department Care Team ([facility] st Contact Info) Description 03/03/2025 1:30 PM EDT Office Visit [facility] OPTOMETRY [address] [place] [address] Tamica Salazar, OD [address] [place] [address] 03/20/2025 3:15 PM EDT Office Visit [facility] MED & PEDS [address] [place] [address] Munir Ruiz MD [address] [place] [address] 04/05/2025 9:00 AM EDT Clinical Support [facility] MED & PEDS [address] [place] [address] Di Ulloa, ANA [address] [place] [address] documented as of this encounter Visit Diagnoses Not on filedocumented in this encounter Additional Health Concerns Assessment Noted Time PHQ-9 Depression Total Score: 3 08/28/20 8:58 AM EDT documented as of this encounter Care Teams Joint Supervisor Relationship Specialty Start Date End Date Munir Ruiz MD [address] [place] [address] PCP - General Internal Medicine 10/12/23 documented as of this encounter
--- OUTSIDE RECORDS SUMMARY | 2025-02-07 15:34 | XMS_ITS | Encounter Summary ---
Author Organization [employer] Address [address] [address] Care Team Providers Care Business Ethics Professor Name Role Phone Munir Ruiz MD Primary Care Prov ider Reason for Visit * Reason Onset Date Comments Med Refill 07/18/2024 Encounter Details Date Type Department Care Team (Late st Contact Info) Description 07/18/2024 Telephone [facility] MEDICINE [address] [place] [address] Munir Ruiz MD [address] [place] [address] Med Refill Social History Tobacco Use Types [...] immediate release tablet To be sent to: [facility] [address] [place] [address] documented in this encounter Plan of Treatment Upcoming Encounters Date Type Department Care Team ([facility] st Contact Info) Description 03/03/2025 1:30 PM EDT Office Visit [facility] OPTOMETRY [address] [place] [address] Tamica Salazar, OD [address] [facility] [place] [address] 03/20/2025 3:15 PM EDT Office Visit [facility] MED & PEDS [address] [place] [address] Munir Ruiz MD [address] [place] [address] 04/05/2025 9:00 AM EDT Clinical Support [facility] MED & PEDS [address] [place], [place] [phone] Di Ulloa ANA [address] [place] [address] documented as of this encounter Visit Diagnoses Not on filedocumented in this encounter Additional Health Concerns Assessment Noted Time PHQ-9 Depression Total Score: 3 08/28/20 8:58 AM EDT documented as of this encounter Care Teams Business Ethics Professor Relationship Specialty Start Date End Date Munir Ruiz MD [address] [place] [address] PCP - General Internal Medicine 10/12/23 documented as of this encounter
--- OUTSIDE RECORDS SUMMARY | 2025-02-07 15:34 | XMS_ITS | Encounter Summary ---
Author Organization [employer] Address [address] [address] Care Team Providers Care Crew Chief Name Role Phone Munir Ruiz MD Primary Care Prov ider Reason for Visit * Reason Onset Date Comments Medication Question 07/18/2024 Encounter Details Date Type Department Care Team ([facility] st Contact Info) Description 07/18/2024 Telephone [facility] MEDICINE [address] [place] [address] Munir Ruiz MD [address] [place] [address] Medication Question Social History Tobacco Use Types [...] any questions you can contact pt at [phone]. documented in this encounter Plan of Treatment Upcoming Encounters Date Type Department Care Team ([facility] st Contact Info) Description 03/03/2025 1:30 PM EDT Office Visit [facility] OPTOMETRY [address] [place] [address] Tamica Salazar, OD 230 [facility] [place] [address] 03/20/2025 3:15 PM EDT Office Visit [facility] MED & PEDS [address] [place] [address] Munir Ruiz MD [address] [place] [address] 04/05/2025 9:00 AM EDT Clinical Support [facility] MED & PEDS [address] [place] [address] Di Ulloa, ANA [address] [place] [address] documented as of this encounter Visit Diagnoses Not on filedocumented in this encounter Additional Health Concerns Assessment Noted Time PHQ-9 Depression Total Score: 3 08/28/20 23 8:58 AM EDT documented as of this encounter Care Teams Crew Chief Relationship Specialty Start Date End Date Munir Ruiz MD [address] [place] [address] PCP - General Internal Medicine 10/12/23 documented as of this encounter
--- OUTSIDE RECORDS SUMMARY | 2025-02-07 15:34 | XMS_ITS | Encounter Summary ---
Author Organization [employer] Address [address] [facility] [address] [place] [address] Care Team Providers Care Property Economist Name Role Phone Munir Ruiz MD Primary Care Prov ider Encounter Details Date Type Department Care Team ([facility] st Contact Info) Description 12/20/2024 Orders Only [facility] [address] [place], [place] [phone] Chetan Hankins MD [address] [place] [address] Social History Tobacco Use Types Packs/Day Years [...] AM EDT documented as of this encounter Plan of Treatment Upcoming Encounters Date Type Department Care Team (Late st Contact Info) Description 03/03/2025 1:30 PM EDT Office Visit [facility] OPTOMETRY [address] [place] [address] Tamica Salazar, OD [address] [place] [address] 03/20/2025 3:15 PM EDT Office Visit [facility] MED & PEDS [address] [place] [address] Munir Ruiz MD [address] [place] [address] 04/05/2025 9:00 AM EDT Clinical Support [facility] MED & PEDS [address] [place] [address] Di Ulloa, ANA [address] [place] [address] documented as of this encounter Visit Diagnoses Not on filedocumented in this encounter Additional Health Concerns Assessment Noted Time PHQ-9 Depression Total Score: 0 09/13/20 24 1:43 PM EST documented as of this encounter Care Teams Property Economist Relationship Specialty Start Date End Date Munir Ruiz MD [address] [place] [address] PCP - General Internal Medicine 10/12/23 documented as of this encounter
--- OUTSIDE RECORDS SUMMARY | 2025-02-07 15:34 | XMS_ITS | Encounter Summary ---
Author Organization [employer] Address [address] [address] Care Team Providers Care Oyster Grader Name Role Phone Munir Ruiz MD Primary Care Prov ider Reason for Visit * Reason Onset Date Comments Med Refill 01/27/2025 Encounter Details Date Type Department Care Team (Late st Contact Info) Description 01/27/2025 Telephone [facility] MEDICINE [address] [place] [address] Munir Ruiz MD [address] [place] [address] Med Refill Social History Tobacco Use Types [...] encounter Miscellaneous Notes * Telephone Encounter - Christine Pimentel - 01/27/2025 9:14 AM EDT TC from pt requesting medication refill. Medications needing refill : oxyCODONE (Roxicodone) 5 MG immediate release tablet To be sent to: [facility] documented in this encounter Plan of Treatment Upcoming Encounters Date Type Department Care Team ([facility] st Contact Info) Description 03/03/2025 1:30 PM EDT Office Visit [facility] OPTOMETRY [address] [place] [address] Tamica Salazar, OD [address] [place] [address] 03/20/2025 3:15 PM EDT Office Visit [facility] MED & PEDS [address] [place] [address] Munir Ruiz MD [address] [place] [address] 04/05/2025 9:00 AM EDT Clinical Support [facility] MED & PEDS [address] [place] [address] Di Ulloa, ANA [address] [place], [place] [phone] documented as of this encounter Visit Diagnoses Not on filedocumented in this encounter Additional Health Concerns Assessment Noted Time PHQ-9 Depression Total Score: 0 09/13/20 24 1:43 PM EST documented as of this encounter Care Teams Oyster Grader Relationship Specialty Start Date End Date Munir Ruiz MD [address] [place] [address] PCP - General Internal Medicine 10/12/23 documented as of this encounter
--- OUTSIDE RECORDS SUMMARY | 2025-02-07 15:34 | XMS_ITS | Encounter Summary ---
Author Organization [employer] Address [address] [facility] [address] [place] [address] Care Team Providers Care Quilt Maker Name Role Phone Munir Ruiz MD Primary Care Prov ider Encounter Details Date Type Department Care Team ([facility] Contact Info) Description 11/20/2023 Orders Only [facility] MED & PEDS [address] [place], [place] [phone] Munir Ruiz MD [address] [place] [address] Social History Tobacco Use Types Packs/Day Years [...] Description 03/03/2025 1:30 PM EDT Office Visit [facility] OPTOMETRY [address] [place] [address] MartinTamica crawford, OD [address] [place] [address] 03/20/2025 3:15 PM EDT Office Visit [facility] MED & PEDS [address] [place] [address] Munir Ruiz MD [address] [place] [address] 04/05/2025 9:00 AM EDT Clinical Support [facility] MED [facility] P[facility] [address] [place] [address] Di Ulloa, ANA [address] [place] [address] documented as of this encounter Visit Diagnoses Not on filedocumented in this encounter Additional Health Concerns Assessment Noted Time PHQ-9 Depression Total Score: 3 08/28/20 23 8:58 AM EDT documented as of this encounter Care Teams Quilt Maker Relationship Specialty Start Date End Date Munir Ruiz MD [address] [place] [address] PCP - General Internal Medicine 10/12/23 documented as of this encounter
--- OUTSIDE RECORDS SUMMARY | 2025-02-07 15:34 | XMS_ITS | Clinical Summary ---
Author Organization [employer] Address [address] [place] [address] 7 [place] [address] Care Team Providers Care Sanitary Landfill Supervisor Name Role Phone Munir Ruiz MD [...] the morning. 1 kit 08/28/20 23 Active amLODIPine (Norvasc) 5 MG tablet Take 1 tablet (5 mg) by mouth Once per day. Start today per Dr. Castañeda's office visit note 12/20/24 90 tablet 12/21/19 25 025 Active atorvastatin (Lipitor) 40 MG tablet Take 1 tablet (40 mg) by mouth in the morning. 30 tablet 5 12/28/19 25 Active baclofen (Lioresal) 10 MG tablet Take 1 tablet (10 mg) by mouth 3 times daily. 90 tablet 12/28/19 25 Active hydroCHLOROthiaz blane (HYDRODiuril) 25 MG tabletIndication s:Benign hypertension TAKE 1 TABLET BY MOUTH EVERY MORNING 30 tablet 5 12/28/19 25 Active levothyroxine (Synthroid, Levoxyl) 50 MCG tablet Take 1 tablet (50 mcg) by mouth before breakfast. 90 tablet 1 12/28/19 25 Active ibuprofen 800 MG tablet Take 1 tablet (800 mg) by mouth every 8 (eight) hours if needed for mild pain. 90 tablet 1 12/28/19 25 Active LORazepam (Ativan) 1 MG tablet Take 1 tablet (1 mg) by mouth if needed each day for anxiety for up to 14 days. 14 tablet 01/07/20 25 Active LORazepam (Ativan) 1 MG tabletIndication s:Anxiety Take 1 tablet (1 mg) by mouth at bedtime. 30 tablet 01/18/20 25 Active oxyCODONE (Roxicodone) 5 MG immediate release tabletIndication s:Chronic pain syndrome Take 1 tablet (5 mg) by mouth every 8 (eight) hours if needed for severe pain for up to 28 days. 84 tablet 01/31/20 25 025 Active lisinopril 40 MG tabletIndication s:Benign hypertension Take 1 tablet (40 mg) by mouth in the morning. 90 tablet 1 01/31/20 25 Active lisinopril 40 MG tablet TAKE 1 TABLET BY MOUTH IN THE MORNING 90 tablet 1 10/13/20 24 025 Discontinued(Re order (will not trigger notification to Pharmacy)) LORazepam (Ativan) 1 MG tabletIndication s:Anxiety Take 1 tablet (1 mg) by mouth at bedtime. 30 tablet 12/21/19 25 025 Discontinued(Re order (will not trigger notification to Pharmacy)) oxyCODONE (Roxicodone) 5 MG immediate release tabletIndication s:Chronic pain syndrome Take 1 tablet (5 mg) by mouth every 8 (eight) hours if needed for severe pain for up to 28 days. Do not start before December 30, 2024. 84 tablet 12/30/19 25 025 Discontinued(Re order (will not trigger notification to Pharmacy)) Active Problems Problem Noted Date Diagnosed Date Oropharyngeal dysphagia 12/02/2024 Assessment & Plan (12/02/2024 10:30 AM EST): Will refer to GI, she refers has hx of dilation Lung nodule 12/02/2024 Assessment & Plan (02/01/2025 12:55 PM EDT): Discussed with patient pet ct scan findings, told to follow up with [facility] pulmonology for further treatment, she understood and agreed. Assessment & Plan (01/06/2025 11:01 AM EST): Patient prefers to be seen at [facility], will place new referral Assessment & Plan (12/02/2024 10:32 AM EST): Hx of neck cancer, found with lung nodule, Elevated glucose 09/13/2024 Pre-diabetes 09/13/2024 Assessment & Plan (09/13/2024 6:28 PM EST): A1c 6.0%, diet/lifestyle modifications reinforced, will follow up in 8-12 months [facility] (current) use of opiate analgesic 08/03 Overview (09/28/2024): Dx: chronic pain syndrome Rx: oxycodone 5mg TID orn Last [employer] agreement: 3.15.24 Tier II (visit every 3 [...] 08/29/2023 Anxiety 08/28/2023 08/28/2023 Assessment & Plan (01/06/2025 10:59 AM EST): Will provide extra doses of lorazepam to be taken as needed during the day Assessment & Plan (09/13/2024 6:30 PM EST): [...] Benign hypertension 08/28/2023 08/28/2023 Assessment & Plan (01/06/2025 10:59 AM EST): Her results have been above target, but after falling, having a fracture and finding out she has multiple lung nodules her blood pressure have been off target. I think her blood pressure has to do with the pain she is currently undergoing and the anxiety of getting a cancer diagnosis, will leave on current therapy discussed importance of low sodium diet, follow up in 1 month Assessment & Plan (12/21/2024 12:22 PM EST): [...] Encounters Date Type Department Care Team Description 02/01/2025 10:45 AM EDT Telemedicine [facility] MED & PEDS [address] [place] [address] Munir Ruiz MD Lung nodule (Primary Dx) 02/01/2025 Travel 02/01/2025 Telephone [facility] MEDICINE [address] [place] [address] Munir Ruiz MD Results 01/30/2025 Refill [facility] [address] [place] [address] Munir Ruiz MD Benign hypertension 01/27/2025 Refill [facility] MED & PEDS [address] [place] [address] Di Ulloa RN Chronic pain syndrome 01/27/2025 Telephone [facility] MED[facility] [address] [place] [address] Munir Ruiz MD Med Refill 01/18/2025 Telephone [facility] [address] [place] [address] Munir Ruiz MD Call Back Request 01/18/2025 [facility] Health Information Management [address] [place] [address] Munir Ruiz MD PET/CT DENIED 01/17/2025 9:00 AM EDT Clinical Support [facility] MED & PEDS [address] [place] [address] Di Ulloa RN Chronic pain syndrome (Primary Dx); terminal computer operator (current) use of opiate analgesic 01/17/2025 Orders Only [facility] MED & PEDS [address] [place] [address] Munir Ruiz MD 01/17/2025 [facility] Health Information Management [address] [place] [address] Munir Ruiz MD PET/CT 01/17/2025 Telephone [facility] MEDICINE [address] [place] [address] Munir Ruiz MD Referral 01/17/2025 [facility] Health Information Management [address] [place] [address] Munir Ruiz MD 01/17/2025 Refill [facility] MED & PEDS [address] [place] [address] Di Ulloa RN Anxiety 01/17/2025 Travel 01/16/2025 Telephone [facility] MED & PEDS [address] [place] [address] Di Ulloa RN 01/09/2025 Telephone [facility] [address] [place] [address] Munir Ruiz MD 01/06/2025 8:30 AM EST Telemedicine [facility] MED & PEDS [address] [place] [address] Munir Ruiz MD Benign hypertension (Primary Dx); Anxiety; Lung nodule 01/06/2025 Travel 01/04/2025 Telephone [facility] MED [facility] PEDS [address] [place] [address] Munir Ruiz MD 12/27/2024 Refill [facility] MED & PEDS [address] [place], [place] [phone] Di Ulloa RN 12/26/2024 Refill [facility] [address] [place] [phone] Munir Ruiz MD Benign hypertension 12/26/2024 Refill [facility] [address] [place] [address] Munir Ruiz MD Chronic pain syndrome 12/22/2024 Telephone [facility] PED[facility] [address] [place] [address] Tegan Villalba, ANA Results 12/22/2024 Orders Only [facility] MED [facility] PED[facility] [address] [place] [address] Gabriella Castañeda MD Right elbow pain 12/21/2024 11:15 AM EST Telemedicine [facility] MED [facility] PED[facility] [address] [place] [address] Munir Ruiz MD Benign hypertension (Primary Dx) 12/21/2024 Orders Only [facility]ED[facility] [address] [place] [address] Gabriella Castañeda MD 12/21/2024 Telephone [facility] PED[facility] [address] [place] [address] Alexa Sandoval, mathematics education professor Question (Patient needing BP checked and to check BP machine) 12/21/2024 Telephone [facility] [address] [place] [phone] Munir Ruiz MD Nurse Triage 12/20/2024 3:40 PM EST Office Visit [facility] PED[facility] [address] [place] [address] Gabriella Castañeda MD Olecranon bursitis of right elbow (Primary Dx); Right elbow pain; Uncontrolled hypertension 12/20/2024 Orders Only [facility] [address] [place] [address] Chetan Hankins MD 12/20/2024 Orders Only [facility] [address] [place] [address] Chetan Hankins MD 12/20/2024 Telephone [facility] [address] [address] Larissa Sue MD 12/20/2024 Travel 12/20/2024 Refill [facility] [address] [place] [address] Munir Ruiz MD Anxiety 12/20/2024 Telephone [facility] [address] [place] [address] Munir Ruiz MD Nurse Triage 12/09/2024 Telephone [facility] MED [facility] PEDS [address] [place] [address] Munir Ruiz MD Referral 12/02/2024 9:30 AM EST Telemedicine [facility] MED [facility] PED[facility] [address] [place] [address] Munir Ruiz MD Benign hypertension (Primary Dx); Chronic pain syndrome; Acquired hypothyroidism; Oropharyngeal dysphagia; Lung nodule 12/02/2024 Telephone [facility] PED[facility] [address] [place] [address] Munir Ruiz MD 12/02/2024 Travel 11/30/2024 Telephone [facility] [address] [place] [address] Munir Ruiz MD chart prep 11/22/2024 Refill [facility] [address] [place] [address] Munir Ruiz MD Anxiety from Last 3 [...] not to disclose 2024 9:40 AM EDT Last Filed Vital Signs Vital Sign [...] Description 03/03/2025 1:30 PM EDT Office Visit [facility] OPTOMETRY [address] [place] [address] MartinTamica crawford, OD [address] [place] [address] 03/20/2025 3:15 PM EDT Office Visit [facility] MED [facility] PEDS [address] [place] [address] Munir Ruiz MD [address] [place] [address] 04/05/2025 9:00 AM EDT Clinical Support [facility] [address] [place] [address] Di Ulloa, RN [address] [place] [address] Health Maintenance Due Date Last Done Comments CT Colonography 1955 Colonoscopy 1955 FIT 1954 FOBT 1955 Sigmoidoscopy 1954 Alcohol/Substance Use Screening 1966 Zoster Vaccines (1 of 2) 2004 Depression Screening 09/13/2025 09/13/2024, 09/13/20 Diabetes: Hemoglobin A1C 09/13/2025 09/13/2024 SDOH Screening [...] Procedure Name Priority Date/Time Associated Diagnosis Comments PET/CT BONE SKULL BASE TO MID THIGH Routine 01/30/2025 Lung nodule POCT SANTO-14 URINE DRUG SCREEN Routine 01/17/2025 9:26 AM EDT Chronic pain syndrome XR ELBOW 3+ VIEWS RIGHT Routine 12/21/2024 3:33 PM EST POCT GLYCATED HEMOGLOBIN, TOTAL Routine 09/13/2024 2:46 [...] Recently Relevant to Health Maintenance Results * PET/CT Bone Skull Base to Mid Thigh (01/30/2025) Anatomical Region Laterality Modality Body Computed Tomogra phy Munir Massey MD IMG CT PROCEDURES Final Result * POCT SATNO-14 Urine Drug Screen (01/17/2025 9:26 AM EDT) Oxycodone Screen, Urine Positive Urine Urine specimen obtained by clean catch procedure / Unknown 01/17/2025 9:26 AM EDT Narrative Di Ulloa RN - 01/17/2025 9:26 AM EDT Lot# [id number] Exp: 06-21-26 Munir Massey MD POINT OF CARE TEST ENTER/EDIT ORDERABLES Final Result * XR Elbow 3+ Views Right (12/21/2024 3:33 PM EST) Anatomical Region Laterality Modality Upper Extremities, Elbow Right Radiogr aphic Imaging 12/21/2024 3:33 PM EST Narrative 12/21/2024 4:08 PM EST ?[facility] ?[address] ?[place] [address] ?XRay Report ? Signed ? Patient: Bridget Jain ?MR#: [id number] ?? [id number] ? : 1955 ?Acct:[id number] ? Age/Sex: 69 / F ?ADM Date: 12/21/24 ? Loc: HO.HHCX ? Attending Dr: Gabriella Castañeda MD ? Ordering Physician: Gabriella Castañeda MD ?? Date of Service: 12/21/24 ?? Procedure(s): XR elbow RT min 3V ?? Accession Number(s): [id number] ? cc: Gabriella Castañeda MD ? EXAMINATION: [...] DD/ 1533 ? TD/TT: 12/21/24 1600 ? Junior Technical Writer: ? Procedure Note Heraclio, Kimberley - 12/21/2024 [facility] [address] [place] [address] XRay Report Signed Patient: Bridget Jain AMR#: [id number] : 5Acct:[id number] Age/Sex: 69 / FADM Date: 12/21/24 Loc: HO.HHCX Attending Dr: Gabriella Castañeda MD Ordering Physician: Gabriella Castañeda MD Date of Service: 12/21/24 Procedure(s): XR elbow RT min 3V Accession Number(s): [id number] cc: Gabriella Castañeda MD EXAMINATION: XR ELBOW, [...] 12/21/24 1605 DD/ 1533 TD/TT: 12/21/24 1600 Junior Technical Writer: Gabriella Castañeda MD IMG XR PROCEDURES Final Resul t * POCT HGB A1C (09/13/2024 2:46 PM EST) Hemoglobin A1C 6.0 4.0 - 6.0 % QC Media Lot # [id number] Lot# Expiration Date [id number] Blood 09/13/2024 2:46 PM EST Munir Massey MD POINT OF CARE TEST ENTER/EDIT ORDERABLES Final Result * Lipid Panel, Standard (08/23/2024 10:05 AM EDT) Triglycerides 87 <150 mg/dL [facility] Comment:Desirable Triglyceri de: less than 150 mg/dLBorderline High Triglyceride 150-199 mg/dLHigh Triglyceride: 200-499 mg/dLVery High Triglyceride: greater than or equal to 5OO mg/dL Cholesterol 147 <200 mg/dL [facility] Comment:Desirable Cholestero l: less than 200 mg/dLBorderline High Cholesterol: 200-239 mg/dLHigh Cholesterol: greater than 239 mg/dL LDL Cholesterol Calculated 85 <100 mg/dL [facility] Comment:Desirable LDL: less than 100 mg/dLNear Optimal/Above Optimal LDL: 110- 129 mg/dLBorderline High LDL: 130-159 mg/dLHigh LDL: 160-189 mg/dLVery High LDL: greater than or equal to 190 mg/dL HDL Cholesterol 45 >40 mg/dL [facility] Comment:Desirable HDL: great er than 40 mg/dL Note: This HDL assay may give artificially low results in patients with liver disease. Blood Venous blood specimen / Unknown 08/23/2024 10:05 AM EDT 08/23/2024 11:04 AM EDT Munir Massey MD LAB BLOOD ORDERABL ES Final Result [facility] [address] [place] [address] [phone] * Hm Mammography (11/13/2023 11:54 AM EST) Anatomical Region Laterality Modality Other Historical Provider HEALTH MAINTENANCE Final Result * Cologuard?? colon cancer screening (11/10/2023 10:10 AM EST) Cologuard Result Negative Negative 11/27/19 10:38 AM EST [facility] (CLIA #:[id number]) Comment: NEGATIVE TEST RESULT. A negative Cologuard [...] cancer. ??Following a negative Cologuard result, the [place] Cancer Society and U.S. Multi-Society Task Force screening guidelines recommend a Cologuard re-screening interval of 3 years. References: [place] [employer] Guideline for Colorectal Cancer Screening: https://www.cancer.org/cancer/ngbtc-yzyllr-jcioea/vsdtwqqww-byfxautzm-xzezieg/ac s-rec ommendations.html.; Yan DK, Herminio PONCE, Priyanka SharpK, Colorectal Cancer Screening: Recommendations for Physicians and Patients from the U.S. Multi-Society Task Force on Colorectal Cancer Screening , Am J Gastroenterology 2017; 112:6154-6104. TEST DESCRIPTION: Composite algorithmic analysis of stool [...] were screened with both Cologuard and colonoscopy. (Imperiale T. et al, N Engl J Med 2014;370(14):4478-3865.) Cologuard may produce a false negative or false positive result (no colorectal cancer or precancerous polyp present at colonoscopy follow up). A negative Cologuard test result does not guarantee the absence of CRC or advanced adenoma (pre-cancer). The current Cologuard screening interval is every 3 years. ([place] Cancer Society and U.S. Multi-Society Task Force). Cologuard performance data in a 10,000 patient pivotal study using colonoscopy as the reference method can be accessed at the following location: www.[employer] Angel/results. Additional description of the Cologuard test process, warnings and precautions can be found at www.cologuard.[employer] Angel. Stool specimen (specimen) 11/10/2023 10:10 AM EST 11/11/2023 2:32 PM EST Munir Massey MD LAB MOLECULAR DIAG NOSTICS ORDERABLES Final Result Performing Organization Address City/[facility]/ZIP Co de Phone Number [facility] (CLIA #:[id number]) [place] [address], * Hepatitis C Antibody with Reflex to HCV, RNA, Quantitative, Real-Time PCR (09/18/2023 8:37 AM EST) Hepatitis C Antibody Nonreactive Nonreactive [facility] Comment:Antibodies to HCV no t detected; does not exclude early acuteHCV infection. Blood Venous blood specimen / Unknown 09/18/2023 8:37 AM EST 09/18/2023 2:26 PM EST Munir Massey MD LAB BLOOD ORDERABL ES Final Result Performing Organization Address [facility] Co de Phone Number [facility] [address] [place] [phone] from Last 3 Months or Most Recently Relevant to Health Maintenance Insurance [employer] MEDICARE REPLACEMENT Care Teams Sanitary Landfill Supervisor Relationship Specialty Start Date End Date ThompsonMunir Barakat MD [address] [place] [address] RAH Tillman [phone] PCP - General Internal Medicine 10/12/23
--- OUTSIDE RECORDS SUMMARY | 2025-02-07 15:34 | XMS_ITS | Encounter Summary ---
Author Organization [employer] Address [address] [facility] 7t [place] [address] Care Team Providers Care Culturist Name Role Phone Munir Ruiz MD Primary Care Prov ider Encounter Details Date Type Department Care Team ([facility] Contact Info) Description 01/17/2025 Orders Only [facility] MED & PEDS [address] [place], [place] [phone] Munir Ruiz MD [address] [place] [address] Social History Tobacco Use Types Packs/Day Years [...] Description 03/03/2025 1:30 PM EDT Office Visit [facility] OPTOMETRY [address] [place] [address] MartinTamica, OD [address] [place] [address] 03/20/2025 3:15 PM EDT Office Visit [facility] [address] [place] [address] Munir Ruiz MD [address] [place] [address] 04/05/2025 9:00 AM EDT Clinical Support [facility] [address] [place] [address] Di Ulloa, ANA [address] [place] [address] documented as of this encounter Visit Diagnoses Not on filedocumented in this encounter Additional Health Concerns Assessment Noted Time PHQ-9 Depression Total Score: 0 09/13/20 24 1:43 PM EST documented as of this encounter Care Teams Culturist Relationship Specialty Start Date End Date Munir Ruiz MD [address] [place] [phone] PCP - General Internal Medicine 10/12/23 documented as of this encounter
--- OUTSIDE RECORDS SUMMARY | 2025-02-07 15:34 | XMS_ITS | Encounter Summary ---
Author Organization [employer] Address [address] [facility] 7t [place] [address] Care Team Providers Care Instrumentation Supervisor Name Role Phone Munir Ruiz MD Primary Care Prov ider Encounter Details Date Type Department Care Team (Late st Contact Info) Description 09/14/2024 Orders Only [facility] [address] [place] [address] ProviderArjun MD Social History Tobacco Use Types Packs/Day Years [...] Description 03/03/2025 1:30 PM EDT Office Visit [facility] OPTOMETRY [address] [place] [address] MartinTamica crawford, OD [address] [place] [address] 03/20/2025 3:15 PM EDT Office Visit [facility] MED & PEDS [address] [place] [address] Munir Ruiz MD [address] [place] [address] 04/05/2025 9:00 AM EDT Clinical Support [facility] P[facility] [address] [place] [address] Di Ulloa RN [address] [place] [address] documented as of this encounter Procedures Procedure [...] documented as of this encounter Care Teams Instrumentation Supervisor Relationship Specialty Start Date End Date Munir Ruiz MD [address] [place] [phone] PCP - General Internal Medicine 10/12/23 documented as of this encounter
--- OUTSIDE RECORDS SUMMARY | 2025-02-07 15:34 | XMS_ITS | Encounter Summary ---
Author Organization [employer] Address [address] [facility] 7 [place] [address] Care Team Providers Care Fire Fighter [employer] Name Role Phone Munir Ruiz MD Primary Care Prov ider Encounter Details Date Type Department Care Team ([facility] Contact Info) Description 09/22/2023 Orders Only [facility] MED & PEDS [address] [place], [place] [phone] Devon Smart MD [address] [place] [address] Benign hypertension (Primary Dx); Hypokalemia Social History [...] 03/03/2025 1:30 PM EDT Office Visit [facility] OPTOMETRY [address] [place] [address] Tamica Salazar, OD [address] [place] [address] 03/20/2025 3:15 PM EDT Office Visit [facility] P[facility] [address] [place] [address] Munir Ruiz MD [address] [place] [address] 04/05/2025 9:00 AM EDT Clinical Support [facility] [address] [place] [address] Di Ulloa RN [address] [place] [address] documented as of this encounter Procedures Procedure Name Priority Date/Time Associated Diagnosis Comments POTASSIUM Routine 10/12/2023 9:37 AM EST Hypokalemia documented in this encounter Results * Potassium (10/12/2023 9:37 AM EST) Potassium 3.3 3.3 - 5.1 mmol/L [facility] Blood Venous blood specimen / Unknown 10/12/2023 9:37 AM EST 10/12/2023 2:06 PM EST us Devon Smart MD LAB BLOOD ORDERABLES Final Result [facility] [address] [place] [phone] [phone] documented in this encounter Visit Diagnoses Diagnosis Benign hypertension- Primary Essential hypertension, benign Hypokalemia Hypopotassemia documented in this encounter Additional Health Concerns Assessment Noted Time PHQ-9 Depression Total Score: 3 08/28/20 8:58 AM EDT documented as of this encounter Care Teams Fire Fighter [employer] Relationship Specialty Start Date End Date Munir Ruiz MD [address] [place] [phone] PCP - General Internal Medicine 10/12/23 documented as of this encounter
--- OUTSIDE RECORDS SUMMARY | 2025-02-07 15:34 | XMS_ITS | Encounter Summary ---
Author Organization [employer] Address [address] [place] [address] Care Team Providers Care Oracle Applications Developer Name Role Phone Munir Ruiz MD Primary Care Prov ider Reason for Visit * Reason Onset Date Comments New Patient 07/30/2023 Encounter Details Date Type Department Care Team (Late st Contact Info) Description 07/30/2023 Telephone [facility] [address] [place] [address] Munir Ruiz MD [address] [place] [address] New Patient Social History Tobacco Use Types [...] Mari Tobar - 07/30/2023 5:40 PM EDT PAR Mari Zuniga called pt to Offer RESEARCH CHEMIST appt. Pt demographics and insurance information were verified. Pt reports the following medical conditions: HBP, High Cholesterol, Cancer low risk. Pt is currently taking medication: Yes (advised to communicate on day of appt) Pt given RESEARCH CHEMIST appt with Dr. Thompson on 08/24/2023 @ 9:00 am. Pt will be sent appt reminder card and medical release form and agrees to complete and to return to medical records prior to RESEARCH CHEMIST appt. documented in this encounter Plan of Treatment Upcoming Encounters Date Type Department Care Team (Late st Contact Info) Description 03/03/2025 1:30 PM EDT Office Visit [facility] OPTOMETRY [address] [place] [address] Tamica Salazar, OD [address] [place] [address] 03/20/2025 3:15 PM EDT Office Visit [facility] [address] [place] [address] Munir Ruiz MD [address] [place] [address] 04/05/2025 9:00 AM EDT Clinical Support [facility] [address] [place] [address] Di Ulloa, ANA [address] [place], [place] [phone] documented as of this encounter Visit Diagnoses Not on filedocumented in this encounter Care Teams Oracle Applications Developer Relationship Specialty Start Date End Date Munir Ruiz MD [address] [place] [address] PCP - General Internal Medicine 10/12/23 documented as of this encounter
--- OUTSIDE RECORDS SUMMARY | 2025-02-07 15:34 | XMS_ITS | Encounter Summary ---
Author Organization [employer] Address [address] [address] Care Team Providers Care Deflector Operator Name Role Phone Munir Ruiz MD Primary Care Prov ider Reason for Visit * Reason Onset Date Comments Call Back Request 03/14/2024 Encounter Details Date Type Department Care Team ([facility] st Contact Info) Description 03/14/2024 Telephone [facility] MEDICINE [address] [place] [address] Munir Ruiz MD [address] [place] [address] Call Back Request Social History Tobacco Use [...] Pt wants to clarify scheduling routine for UTILITY AGENT visits. Pt was sure it was every other month but is confused due to upcoming appt on 04/15 after alreadybeing seen this month on 03/11. If any questions please contact pt at [phone]. documented in this encounter Plan of Treatment Upcoming Encounters Date Type Department Care Team ([facility] st Contact Info) Description 03/03/2025 1:30 PM EDT Office Visit [facility] OPTOMETRY [address] [place] [address] Tamica Salazar, OD 230 [facility] [place] [address] 03/20/2025 3:15 PM EDT Office Visit [facility] CHC MED & PEDS [address] [place] [address] Munir Ruiz MD [address] [place] [address] 04/05/2025 9:00 AM EDT Clinical Support [facility] MED & PEDS [address] [place] [address] Di Ulloa, ANA [address] [place] [address] documented as of this encounter Visit Diagnoses Not on filedocumented in this encounter Additional Health Concerns Assessment Noted Time PHQ-9 Depression Total Score: 3 08/28/20 23 8:58 AM EDT documented as of this encounter Care Teams Deflector Operator Relationship Specialty Start Date End Date Munir Ruiz MD [address] [place] [address] PCP - General Internal Medicine 10/12/23 documented as of this encounter
--- OUTSIDE RECORDS SUMMARY | 2025-02-07 15:34 | XMS_ITS | Encounter Summary ---
Author Organization [employer] Address 75 [facility] [address], [place] [address] Care Team Providers Care Armhole Raiser Lockstitch Name Role Phone Munir Ruiz MD Primary Care Prov ider Reason for Visit * Reason Onset Date Comments Referral 01/17/2025 Encounter Details Date Type Department Care Team ([facility] st Contact Info) Description 01/17/2025 Telephone [facility] MEDICINE [address] [place] [address] Munir Ruiz MD [address] [place] [address] Referral Social History Tobacco Use Types Packs/Day [...] * Telephone Encounter - Christine Pimentel - 01/17/2025 12:44 PM EDT Tc from Missy with [employer] requesting referral for a DEXA scan ( Bone Density) test as pt needs it dueto having a fracture on December 07, 2024 on right clavicle. Missy inform has to be done urgently before June 10, 2025. documented in this encounter Plan of Treatment Upcoming Encounters Date Type Department Care Team (Late st Contact Info) Description 03/03/2025 1:30 PM EDT Office Visit [facility] OPTOMETRY [address] [place] [address] Tamica Salazar, OD 230 [facility] [place] [address] 03/20/2025 3:15 PM EDT Office Visit [facility] CHC MED & PEDS [address] [place] [address] Munir Ruiz MD [address] [place] [address] 04/05/2025 9:00 AM EDT Clinical Support [facility] CHC MED & PEDS [address] [place] [address] Di Ulloa, ANA 505 [place] [address] documented as of this encounter Visit Diagnoses Not on filedocumented in this encounter Additional Health Concerns Assessment Noted Time PHQ-9 Depression Total Score: 0 09/13/20 24 1:43 PM EST documented as of this encounter Care Teams Armhole Raiser Lockstitch Relationship Specialty Start Date End Date Munir Ruiz MD [address] [place] [address] PCP - General Internal Medicine 10/12/23 documented as of this encounter
== END 2025-02-07 13:31 | disposition home or self-care (01) ==
LOC: HO.HPS 12:54
PROVIDERS: PCP Internal Medicine; Visit Provider Internal Medicine Pulmonary Disease
DX: R91.1 Solitary pulmonary nodule (principal)
CPT/HCPCS: 99214

== ENCOUNTER → 2025-02-07 12:54 | Outpatient (BNVA) | payer MEDICARE, SELFPAY | PROVIDERS: PCP Internal Medicine; Visit Provider Internal Medicine Pulmonary Disease | DX: R91.1 Solitary pulmonary nodule (principal) | CPT/HCPCS: 99212 ==

== ENCOUNTER 2025-04-05 13:35 | Outpatient (AMB) | payer MEDICARE, SELFPAY ==
--- OUTSIDE RECORDS SUMMARY | 2025-04-05 13:46 | XMS_ITS | Encounter Summary ---
Author Organization [employer] Address [address] [place] [address] Care Team Providers Care Scoop Operator Name Role Phone Munir Ruiz MD Primary Care Prov ider Reason for Visit * Reason Onset Date Comments Med Refill 09/12/2024 Encounter Details Date Type Department Care Team ([facility] st Contact Info) Description 09/12/2024 Telephone [facility] MEDICINE [address] [place] [address] Munir Ruiz MD [address] [place] [address] Med Refill Social History Tobacco Use Types [...] your housing situation today? I have beau humza 09/13/[address] you li [...] AM EDT documented as of this encounter Functional Status * Over the past 2 weeks, how often have you been bothered by any of the following problems? Question Answer Date of Assessment Author Patient Health Questionnaire-2 Score 0 09/02 1:43 PM Bernice Zimmer [place] * Over the past 2 weeks, how often have you been bothered by any of the following problems? Question Answer Date of Assessment Author Little interest or pleasure in doing things Not at all 09/13/2024 1:43 PM Bernice Zimmer MA Feeling down, depressed, or hopeless Not at all 09/13/2024 1:43 PM Bernice Zimmer [place] Trouble falling or staying a sleep, or sleeping too much Not at all 09/13/2024 1:43 PM Bernice Zimmer MA Feeling tired or having tristen le energy Not at all 09/13/2024 1:43 PM Bernice Zimmer [place] Poor appetite or overeating Not at all 09/13/2024 1: 43 PM Bernice Zimmer MA Feeling bad about yourself - or that you are a failure or have let yourself or your family down Not at all 09/13/2024 1:43 PM Zain Zimmer MA Trouble concentrating on thi ngs, such as reading the newspaper or watching television Not at all 09/13/2024 1:43 PM Bernice Zimmer MA Moving or speaking so slowly that other people could have noticed? Or the opposite - being so fidgety or restless that you have been moving around a lot more than usual. Not at all 09/13/2024 1:43 PM Bernice Zimmer MA Thoughts that you would be b payton off or hurting yourself in some way Not at all 09/13/2024 1:43 PM Bernice Zimmer MA Patient Health Questionnaire -9 Score 0 09/13/2024 1:43 PM Bernice Zimmer MA documented as of this encounter Miscellaneous Notes * Telephone Encounter - Randy Jordan - 09/12/2024 10:53 AM EST TC from pt requesting medication refill. Medications needing refill : oxyCODONE (Roxicodone) 5 MG immediate release tablet To be sent to: [facility] - [place], [place] - [address] [place] [address] documented in this encounter Plan of Treatment Upcoming Encounters Date Type Department Care Team ([facility] st Contact Info) Description 04/24/2025 1:30 PM EDT Telemedicine [facility] MED [facility] PEDS [address] [place] [address] Munir Ruiz MD [address] [place] [address] 07/05/2025 3:15 PM EDT Clinical Support [facility] MED [facility] PEDS [address] [place] [address] Di Ulloa, ANA 505 [place] [address] documented as of this encounter Visit Diagnoses Not on filedocumented in this encounter Additional Health Concerns Assessment Noted Time PHQ-9 Depression Total Score: 3 08/28/20 8:58 AM EDT documented as of this encounter Care Teams Scoop Operator Relationship Specialty Start Date End Date Munir Ruiz MD [address] [place] [address] PCP - General Internal Medicine 10/12/23 documented as of this encounter
--- NOTE | 2025-04-05 13:57 | HO.NEPHOV_ITS ---
Vital Signs 04/05/25 13:58 Height 5 ft 3 in Weight 178 lb BMI 31.5 BP 136/66 Blood Pressure Location Lt brachial Position Sitting Pulse 71 Pulse Source Pulse Oximeter Pulse Oximetry (%) 94 Oxygen Delivery Method Room Air Intake Visit Reasons: ENP: Benign hypertension/ Conf Working Supervisor Required: No Accompanied by: Self / Same As Patient Allergies No Known Allergies Allergy (Mild, Verified 04/05/25 13:58) - Medication List - Last Reconciled 04/05/25 by Rafy Carey MD amlodipine 10 mg PO DAILY amoxicillin 500 mg PO TID atorvastatin mg PO DAILY chlorhexidine gluconate 0.12% PO hydrochlorothiazide mg PO DAILY ibuprofen mg PO PRN levothyroxine mcg PO DAILY lisinopril mg PO DAILY lorazepam 1 mg PO BID oxycodone 5 mg PO TID HPI Comments Details: 69-year-old female presenting with concerns of poorly controlled hypertension and renal function evaluation. Initially diagnosed with hypertension over five years ago, she reports increased blood pressure readings post a fall incident in November, managed under Dr. Thompson's supervision with antihypertensive modifications. Following previously described renal complications due to a certain medication, her renal function is notably monitored. The patient?s renal issues arose from medication-related insults, potentially involving contrast, previously implicated in renal shutdown. She probably had contrast induced IRMA, which has since resolved. Additional medical history includes head and neck cancer treated with chemotherapy and radiation nine years prior. Recently, a lung nodule, under observation, and an oral lesion, for which biopsy results are pending, represent further health concerns. Renal health may be affected by long-term NSAID usage, contributing to current health management challenges. The patient?s cessation of smoking 30 years ago is significant in the overall health assessment. No symptoms recently reported suggestive of kidney dysfunction or peripheral edema. [facility] Medical History (Updated 04/05/25 @ 14:12 by Rafy Carey MD) FH: cholecystectomy Surgical History History of total abdominal hysterectomy (~1979) History of neck surgery (~2013) History of appendectomy (~1989) Family History Mother Aortic aneurysm Kidney disease Hypertension Sister Hypertension Diabetes Social History Patient Tobacco Use Status: Former Tobacco user Years Smoked: quit more than 30 years ago Review of Systems Const Denies fever(s) and Denies weight loss Card Denies chest pain Resp Denies cough and Denies hemoptysis GI Denies abdominal pain, Denies diarrhea and Denies nausea Musc Denies back pain Neuro Denies focal weakness Physical Exam Vital Signs: Last Vital Signs Pulse 71 04/05/25 13:58 BP 136/66 04/05/25 13:58 Pulse Ox 94 04/05/25 13:58 Oxygen Delivery Method Room Air 04/05/25 13:58 BMI result Body Mass Index 31.5 Comfortable Neck supple no JVD. Lungs entry equal no rales. Heart S1-S2 heard no gallop or rub. Abdomen soft nontender. Neuro alert awake oriented. No asterixis. Extremities no edema. Results Reviewed Nephrology Results: Hgb 15.6 g/dl (12.0-16.0) 09/18/23 WBC 8.1 X10*3/uL (4.8-10.8) 09/18/23 Plt Count 247 X10*3/uL (160-400) 09/18/23 Sodium 142 mmol/L (135-145) 08/23/24 Potassium 3.8 mmol/L (3.3-5.1) 08/23/24 Chloride 108 mmol/L (96-108) 08/23/24 Carbon Dioxide 26 mmol/L (22-29) 08/23/24 BUN 22 mg/dL (9-16) H 08/23/24 Creatinine 0.91 mg/dL (0.5-1.4) 08/23/24 Calcium 9.5 mg/dL (8.4-10.2) 08/23/24 Assessment & Plan Assessment & Plan (1) HTN (hypertension): Code(s): I10 - Essential (primary) hypertension Category: Medical Plan Plan The patient's essential hypertension management will persist with amlodipine, and adjusted doses of hydrochlorothiazide, considering renal health risks related to NSAID use. A renal artery ultrasound is scheduled to evaluate underlying causality for recent blood pressure increases. Follow-up with the pulmonary team for her lung nodule and awaiting oral biopsy results remain, with Dr. Thompson apprised as necessary. Renal function tests will be conducted based on scheduled appointments. Continued guidance on low-sodum diet adherence and medication effect understanding was provided, reinforcing regular check-ups and diagnostic follow-ups. Discussion Notes During the visit, I discussed managing essential hypertension with current medications, recent alterations, and future plans to assess vascular contributions involving the renal artery through ultrasound. Risks associated with NSAID use were revisited concerning renal function preservation and potential exacerbation of hypertension. As the lung nodule is observed by a mercury cracking tester, and with pending oral lesion biopsy outcomes, follow-ups were emphasized. We discussed the potential impact of current treatments and diagnostic plans, highlighting the kidney function surveillance necessitated by ongoing treatment plans. I ensured the patient comprehended the importance of adhering to recommended testing and maintaining a suitable low-sodium diet, and she expressed understanding of these aspects. Orders: Orders US renal doppler Today I10 - Essential (primary) hypertension Patient Instructions: - Continue current blood pressure medications as directed. - Avoid excessive NSAID use due to its potential effect on blood pressure and kidneys. - Maintain a low-sodium diet to help manage blood pressure. - Follow-up on scheduled ultrasound for renal artery evaluation. - Attend all upcoming lab appointments and specialist follow-ups. - Report any new symptoms or changes in health. - Continue to abstain from smoking and maintain a healthy lifestyle. Coding Level of Care Code New Pt Level 4 (86974) Diagnoses HTN (hypertension) I10
[2025-04-05 13:58] VITALS: BP 136/66; PULSE 71; O2SAT 94; BMI 31.5
== END 2025-04-05 14:31 | disposition home or self-care (01) ==
LOC: HO.HKAM 13:35
PROVIDERS: PCP Internal Medicine; Visit Provider Internal Medicine Hypertension Specialist
DX: I10 Essential (primary) hypertension (principal)
CPT/HCPCS: 99204

== ENCOUNTER → 2025-04-05 13:35 | Outpatient (BNVA) | payer MEDICARE, SELFPAY | PROVIDERS: PCP Internal Medicine; Visit Provider Internal Medicine Hypertension Specialist | DX: I10 Essential (primary) hypertension (principal) | CPT/HCPCS: 99202 ==

== ENCOUNTER 2025-04-07 06:47 | Outpatient (REF) | payer MEDICARE, SELFPAY ==
--- OUTSIDE RECORDS SUMMARY | 2025-04-07 06:49 | XMS_ITS | Encounter Summary ---
Author Organization [employer] Address [address] [place] [address] Care Team Providers Care Resource Manager Name Role Phone Munir Ruiz MD Primary Care Prov ider Reason for Visit * Reason Onset Date Comments Med Refill 09/12/2024 Encounter Details Date Type Department Care Team ([facility] st Contact Info) Description 09/12/2024 Telephone [facility] MEDICINE [address] [place] [address] Munir Ruiz MD [address] [place] [address] Med Refill Social History Tobacco Use Types [...] immediate release tablet To be sent to: [facility] - [place], [place] - [address] [place] [address] documented in this encounter Plan of Treatment Upcoming Encounters Date Type Department Care Team ([facility] st Contact Info) Description 04/24/2025 1:30 PM EDT [facility]medicine [facility]ED[facility] [address] [place] [address] Munir Ruiz MD [address] [place] [address] 07/05/2025 3:15 PM EDT Clinical Support [facility] MED [facility]EDS [address] [place] [address] Di Ulloa, ANA [address] [place] [address] documented as of this encounter Visit Diagnoses Not on filedocumented in this encounter Additional Health Concerns Assessment Noted Time PHQ-9 Depression Total Score: 3 08/28/20 8:58 AM EDT documented as of this encounter Care Teams Resource Manager Relationship Specialty Start Date End Date Munir Ruiz MD [address] [place] [address] PCP - General Internal Medicine 10/12/23 documented as of this encounter
[2025-04-07 10:12] LABS: MANUAL DIFF FLAG NO
[2025-04-07 10:28] LABS: Basophils Percent Auto 0.6 % (0-2); Eosinophils Absolute Auto 0.3 X10*3/uL (0.0-0.4); Eosinophils Percent Auto 5.1 % (0-4); Hematocrit 41.8 % (37.0-47.0); Hemoglobin 13.9 g/dl (12.0-16.0); Imm Gran Abs Auto 0.02 X10*3/uL (0.00-0.03); Imm Gran Pct Auto 0.3 % (0.0-0.4); Lymphocytes Absolute Auto 1.7 X10*3/uL (1.2-4.9); Mean Corpuscular HGB Conc 33.3 g/dl (31.0-35.0); Mean Corpuscular Hemoglobin 29.3 pg (27.0-33.0); Mean Corpuscular Volume 88.2 fL (80.0-98.0); Mean Platelet Volume 10.7 fL (9.4-12.3); Monocytes Absolute Auto 0.6 X10*3/uL (0.1-1.2); Monocytes Percent Auto 8.5 % (2-11); Neutrophils Absolute Auto 4.1 x10*3/uL (2.0-8.3); Neutrophils Percent Auto 60.5 % (45-73); Platelet Count 196 X10*3/uL (160-400); Red Blood Count 4.74 X10*6/uL (4.20-5.50); Red Cell Distribution Width 13.1 % (11.0-16.0); White Blood Count 6.7 X10*3/uL (4.8-10.8)
[2025-04-07 11:04] LABS: Estimated Average Glucose 126 mg/dL
[2025-04-07 11:07] LABS: Alanine Aminotransferase 53 U/L (0-31); Albumin Level 4.4 g/dL (3.5-5.0); Anion Gap 13 (12-20); Aspartate Amino Transferase 27 U/L (5-31); Bilirubin Total 0.4 mg/dL (0.0-1.0); Blood Urea Nitrogen 28 mg/dL (9-16); Calcium 9.5 mg/dL (8.4-10.2); Carbon Dioxide 28 mmol/L (22-29); Chloride 107 mmol/L (96-108); Cholesterol 149 mg/dL (<200); Estimated Glomerular Filt Rate 55; Glucose Random 125 mg/dL (60-115); HDL Cholesterol 49 mg/dL (>40); LDL Cholesterol Calculated 83 mg/dL (<100); Sodium 144 mmol/L (135-145); Total Protein 6.5 g/dL (6.5-8.0); Triglycerides 87 mg/dL (<150)
[2025-04-07 11:56] LABS: Alkaline Phosphatase 63 U/L (39-117)
== END 2025-04-07 06:48 | disposition home or self-care (01) ==
LOC: HO.HMGCLDS 06:47
PROVIDERS: PCP Internal Medicine; Visit Provider Internal Medicine
DX: I10 Essential (primary) hypertension (principal); Z13.1 Encounter for screening for diabetes mellitus
CPT/HCPCS: 36415; 80053; 80061; 83036; 84443; 85025

== ENCOUNTER 2025-04-21 08:47 | Outpatient (REF) | payer MEDICARE, SELFPAY ==
--- NOTE | ~2025-04-21 | US_ITS ---
CLINICAL HISTORY: hx of neck radiation, US bilateral carotid duplex Comparison: None Findings: No significant plaque within the common carotid arteries. Mild bilateral plaque within the carotid bulbs. Mild bilateral plaque within the internal carotid arteries . Waveforms are normal morphology. Peak systolic and end-diastolic velocities: Right CCA: 172.0 cm/s Right ICA: 149.0 cm/s Right ICA EDV: 33.8 cm/sec Right systolic ICA/CCA ratio: 0.87 Right ECA: Unremarkable Right vertebral artery flow antegrade. Right subclavian artery peak systolic velocity: 242 cm/sec Left CCA: 121 cm/s Left ICA: 112.0 cm/s Left ICA EDV: 28.3 cm/sec Left systolic ICA/CCA ratio: 0.82 Left diastolic ICA/CCA ratio:default value. Left ECA: Unremarkable Left vertebral artery flow antegrade. Left vertebral artery peak systolic velocity: 157.0 cm/sec Criteria for grading carotid stenosis Stenosis % ICA PSV cm/s ICA/CCA PSV ratio ICA EDV 0-50% <125 <2.0 <40 50-69% 125-230 2.0-4.0 40-100 70% + > 230 >4.0 >100 Impression: 1. Subtle plaque is demonstrated bilaterally. Probable stenosis right subclavian artery. Elevated velocity in the proximal right internal carotid artery. But no stenotic lesions was demonstrated on grayscale ultrasound 2. CTA or MRA may be of further diagnostic value this should include the subclavian arteries This document has been electronically signed by: Zohaib Dyer MD on 04/21/2025 17:08:17
--- OUTSIDE RECORDS SUMMARY | 2025-04-21 08:53 | XMS_ITS | Encounter Summary ---
Author Organization [facility] Address [address] [place] [address] Care Team Providers Care Supervisor Spring Up Name Role Phone Physician, No Pcp Primary Care Provider Unavaila ble Encounter Details Date Type Department Care Team (Late st Contact Info) Description 04/03/2025 Lab Requisition [facility] - Main Lab [address] [facility] [address] [phone] Dario Mariscal DMD [address] [place] [address] Personal history of irradiation Social History Tobacco Use Types Packs/Day Years Used Date Smoking Tobacco: Former Smokeless Tobacco: Former Alcohol Use Standard Drinks/Week Comments Yes 0 (1 standard drink = 0.6 oz pur e alcohol) Comments Unknown Sex and Gender Information Value Date Recorded Sex Assigned at Not on file Legal Sex Female 6:32 PM EST Gender Identity Not on file Sexual Orientation Not on file documented as of this encounter Plan of Treatment Not on file documented as of this encounter Procedures Procedure Name Priority Date/Time Associated Diagnosis Comments TISSUE EXAM Routine 03/28/2025 11:30 AM EDT Personal history of irradiation documented in this encounter Results * Tissue Exam (03/28/2025 11:30 AM EDT) Addendum GMS stain negative for fungi (Control appropriate) 1:00 PM EDT [facility] Addendum electronically signed by Logan Rangel MD on 04/05/2025 at 1:00 PM Final Diagnosis Oral Cavity, right mandible-biopsy: -ACUTE AND CHRONIC MUCOSITIS -Negative for malignancy -See addendum for GMS stain result 1:00 PM EDT [facility] Clinical Information Right mandible, Hx of XRT for SCCa ? Oral right mandible 1:00 PM EDT [facility] Gross Description A. Oral Cavity, right mandible: Labeled with the patient's name and information. Received in formalin is a 0.5 x 0.3 x 0.2 cm irregular johnson-white rubbery tissue fragment which is wrapped in paper and submitted in toto in one cassette, one piece, multiple levels on one slide. ANGIE 1:00 PM EDT [facility] Disclaimer NOTE: The immunohistochemical tests and in situ hybridization tests were developed and their performance characteristics were determined by [facility]. They have not been cleared or approved by the U.S. Food and Drug Administration. The FDA has determined that such clearance or approval is not necessary. These tests are used for clinical purposes. They should not be regarded as investigational or for research. This laboratory is certified under the Clinical Laboratory Improvement Amendments of 1988 (CLIA) as qualified to perform high complexity clinical laboratory testing. (controls appropriate) Unless otherwise specified, all tissue is 10% NB formalin fixed and paraffin embedded. 1:00 PM EDT [facility] Tissue Oral cavity structure / Unknown 03/28/2025 11:30 AM EDT 04/03/2025 9:00 AM EDT us Dario Mariscal DMD LAB PATHOLOGY ORDERABLES Edit ed Result - Final [facility] [address] [place] [address], documented in this encounter Visit Diagnoses Diagnosis Personal history of irradiation Personal history of irradiation, presenting hazards to health documented in this encounter Care Teams Supervisor Spring Up Relationship Specialty Start Date End Date Physician, No Pcp PCP - General 04/04/25 documented as of this encounter
== END 2025-04-21 08:48 | disposition home or self-care (01) ==
LOC: HO.HMGCX 08:47
PROVIDERS: PCP Internal Medicine; Visit Provider Internal Medicine
DX: R09.89 Other specified symptoms and signs involving the circulatory and respiratory systems (principal)
CPT/HCPCS: 93880

== ENCOUNTER → 2025-04-21 08:58 | Outpatient (BNV) | payer MEDICARE, SELFPAY | PROVIDERS: PCP Internal Medicine; Visit Provider Radiology Diagnostic Radiology | DX: I65.23 Occlusion and stenosis of bilateral carotid arteries (principal) | CPT/HCPCS: 93880 ==

== ENCOUNTER 2025-05-19 08:19 | Outpatient (REF) | payer MEDICARE, SELFPAY ==
--- NOTE | ~2025-05-19 | US_ITS ---
CLINICAL HISTORY: I10 - Essential (primary) hypertension US renal duplex ultrasound Comparison: None Technique: Real time duplex ultrasound imaging was performed by the back facer. Multiple patient access representative static images were saved for review. Findings: Aorta: Normal waveform, 72.0 cm/s. Right kidney: Normal size and echotexture, 10.7 cm length. Benign renal cortical cyst upper pole measuring 14 x 14 x 13 mm Main renal artery peak systolic velocities: Proximal: 229.0 cm/s Mid: 174.0 cm/s Distal: 98.0 cm/s Segmental resistive index: Upper pole: 0.78, midpole 0.77 and lower pole 0.74. RAR: 3.18 Right renal vein is patent Left kidney: Normal size and echotexture, 9.8 cm length. Main renal artery peak systolic velocities: Proximal: 218.0 cm/s Mid: 182.0 cm/s Distal: 87.0 cm/s Segmental resistive index: Upper pole 0.76, midpole 0.74, lower pole 0.79. RAR: 3.03 Left renal pain vein is patent Impression: 1. Kidneys are normal in size and echotexture. Incidental benign renal cortical cyst upper pole right kidney. 2. A peak systolic velocity greater than 180 cm/sec and an RAR less than 3.5 suggest less than 60% stenosis bilaterally. 3. Resistive indices all below 0.80 This document has been electronically signed by: Zohaib Dyer MD on 05/19/2025 13:01:41
--- OUTSIDE RECORDS SUMMARY | 2025-05-19 08:21 | XMS_ITS | Encounter Summary ---
Author Organization [facility] Address [address] [place] [address] Care Team Providers Care Spray Maker Name Role Phone Physician, No Pcp Primary Care Provider Unavaila ble Encounter Details Date Type Department Care Team (Late st Contact Info) Description 04/03/2025 Lab Requisition [facility] - Main Lab [address] [facility] [place] [address] [place] [phone] Dario Mariscal DMD [address] [place] [address] Personal history of irradiation Social History Tobacco [...] for fungi (Control appropriate) 1:00 PM EDT [facility] Addendum electronically signed by Logan Rangel MD on 04/05/2025 at 1:00 PM Final Diagnosis Oral Cavity, right mandible-biopsy: -ACUTE AND CHRONIC MUCOSITIS -Negative for malignancy -See addendum for GMS stain result 1:00 PM EDT [facility] Clinical Information Right mandible, Hx of XRT for SCCa ? Oral right mandible 1:00 PM EDT [facility] Gross Description A. Oral Cavity, right mandible: Labeled with the patient's name and information. Received in formalin is a 0.5 x 0.3 x 0.2 cm irregular johnson-white rubbery tissue fragment which is wrapped in paper and submitted in toto in one cassette, one piece, multiple levels on one slide. ANGIE 1:00 PM EDT [facility] Disclaimer NOTE: The immunohistochemical tests and in situ hybridization tests were developed and their performance characteristics were determined by [facility]. They have not been cleared [...] fixed and paraffin embedded. 1:00 PM EDT [facility] Tissue Oral cavity structure / Unknown 03/28/2025 11:30 AM EDT 04/03/2025 9:00 AM EDT us Dario Mariscal DMD LAB PATHOLOGY ORDERABLES Edit ed Result - Final [facility] [address] [place] [address], documented in this encounter Visit Diagnoses Diagnosis Personal history of irradiation Personal history of irradiation, presenting hazards to health documented in this encounter Care Teams Spray Maker Relationship Specialty Start Date End Date Physician, No Pcp PCP - General 04/04/25 documented as of this encounter
--- OUTSIDE RECORDS SUMMARY | 2025-05-19 08:21 | XMS_ITS | Encounter Summary ---
Author Organization [employer] Address [address] [place] [address] Care Team Providers Care Silviculture Forester Name Role Phone Munir Ruiz MD Primary Care Prov ider Reason for Visit * Reason Onset Date Comments Med Refill 09/12/2024 Encounter Details Date Type Department Care Team ([facility] st Contact Info) Description 09/12/2024 Telephone [facility] MEDICINE [address] [place] [address] Munir Ruiz MD [address] [place] [address] Med Refill Social History Tobacco Use Types [...] immediate release tablet To be sent to: [facility] - [place], [place] - [address] [place] [address] documented in this encounter Plan of Treatment Upcoming Encounters Date Type Department Care Team ([facility] st Contact Info) Description 07/05/2025 3:15 PM EDT Clinical Support [facility] MED & PEDS [address] [place] [address] Di Ulloa RN [address] [place] [address] 07/21/2025 8:30 AM EDT Telemedicine [facility] PED[facility] [address] [place] [address] Munir Ruiz MD [address] [place] [address] documented as of this encounter Visit Diagnoses Not on filedocumented in this encounter Additional Health Concerns Assessment Noted Time PHQ-9 Depression Total Score: 3 08/28/20 23 8:58 AM EDT documented as of this encounter Care Teams Silviculture Forester Relationship Specialty Start Date End Date Munir Ruiz MD [address] [place] [address] PCP - General Internal Medicine 10/12/23 documented as of this encounter
== END 2025-05-19 08:20 | disposition home or self-care (01) ==
LOC: HO.HMGCX 08:19
PROVIDERS: PCP Internal Medicine; Visit Provider Internal Medicine Hypertension Specialist
DX: I10 Essential (primary) hypertension (principal)
CPT/HCPCS: 93975

== ENCOUNTER → 2025-05-19 08:25 | Outpatient (BNV) | payer MEDICARE, SELFPAY | PROVIDERS: PCP Internal Medicine; Visit Provider Radiology Diagnostic Radiology | DX: I65.23 Occlusion and stenosis of bilateral carotid arteries (principal); I10 Essential (primary) hypertension | CPT/HCPCS: 93975 ==

== ENCOUNTER 2025-06-07 14:10 | Outpatient (AMB) | payer MEDICARE, SELFPAY ==
--- NOTE | 2025-06-07 14:27 | HO.NEPHOV_ITS ---
Vital Signs 06/07/25 14:28 06/07/25 14:38 Height 5 ft 3 in BP 138/64 130/68 Blood Pressure Location Lt brachial Lt brachial Position Sitting Sitting Pulse 72 Pulse Source Pulse Oximeter Pulse Oximetry (%) 96 Oxygen Delivery Method Room Air Intake Visit Reasons: 8 week f/u LVM Proposal Engineer Required: No Accompanied by: Self / Same As Patient Allergies No Known Allergies Allergy (Mild, Verified 06/07/25 14:29) - Medication List - Last Reconciled 06/07/25 by Rafy Carey MD amlodipine 10 mg PO DAILY amoxicillin 500 mg PO TID atorvastatin mg PO DAILY chlorhexidine gluconate 0.12% PO hydrochlorothiazide mg PO DAILY ibuprofen mg PO PRN levothyroxine mcg PO DAILY lisinopril mg PO DAILY lorazepam 1 mg PO BID oxycodone 5 mg PO TID HPI Comments Details: 69-year-old female presenting with concerns of poorly controlled hypertension and renal function evaluation. Initially diagnosed with hypertension over five years ago, she reports increased blood pressure readings post a fall incident in November, managed under Dr. Thompson's supervision with antihypertensive modifications. Following previously described renal complications due to a certain medication, her renal function is notably monitored. The patient?s renal issues arose from medication-related insults, potentially involving contrast, previously implicated in renal shutdown. She probably had contrast induced IRMA, which has since resolved. Additional medical history includes head and neck cancer treated with chemotherapy and radiation nine years prior. Recently, a lung nodule, under observation, and an oral lesion, for which biopsy results are pending, represent further health concerns. Renal health may be affected by long-term NSAID usage, contributing to current health management challenges. The patient?s cessation of smoking 30 years ago is significant in the overall health assessment. No symptoms recently reported suggestive of kidney dysfunction or peripheral edema. 06/07/25 Overall doing well. h/o leg edema PFSH Medical History (Updated 04/05/25 @ 14:12 by Rafy Carey MD) FH: cholecystectomy Surgical History History of total abdominal hysterectomy (~1979) History of neck surgery (~2013) History of appendectomy (~1989) Family History Mother Aortic aneurysm Kidney disease Hypertension Sister Hypertension Diabetes Social History Patient Tobacco Use Status: Former Tobacco user Years Smoked: quit more than 30 years ago Physical Exam Vital Signs: Last Vital Signs Pulse 72 06/07/25 14:28 Pulse Ox 96 06/07/25 14:28 Oxygen Delivery Method Room Air 06/07/25 14:28 Comfortable Neck supple no JVD. Lungs entry equal no rales. Heart S1-S2 heard no gallop or rub. Abdomen soft nontender. Neuro alert awake oriented. No asterixis. Extremities no edema. Results Reviewed Nephrology Results: Hgb, (12.0-16.0) 13.9 g/dl 04/07/25 WBC, (4.8-10.8) 6.7 X10*3/uL 04/07/25 Plt Count, (160-400) 196 X10*3/uL 04/07/25 Sodium, (135-145) 144 mmol/L 04/07/25 Potassium, (3.3-5.1) 4.0 mmol/L 04/07/25 Chloride, (96-108) 107 mmol/L 04/07/25 Carbon Dioxide, (22-29) 28 mmol/L 04/07/25 BUN, (9-16) 28 mg/dL H 04/07/25 Creatinine, (0.5-1.4) 0.99 mg/dL 04/07/25 Calcium, (8.4-10.2) 9.5 mg/dL 04/07/25 Renal US 05/19/25 Assessment & Plan Assessment & Plan (1) HTN (hypertension): Code(s): I10 - Essential (primary) hypertension Category: Medical Plan BP well controlled No ARCENIO based on renal doppler NO change in meds today Encouraged to stay on low salt diet Monitor BP at home Will monitor renal function RTC in 6 months Orders: Orders Basic Metabolic Panel 6 Months I10 - Essential (primary) hypertension Coding Level of Care Code Est Pt Level 4 (20554) Diagnoses HTN (hypertension) I10
[2025-06-07 14:28] VITALS: BP 138/64; PULSE 72; O2SAT 96
[2025-06-07 14:38] VITALS: BP 130/68
--- OUTSIDE RECORDS SUMMARY | 2025-06-07 14:43 | XMS_ITS ---
Author Name [facility] Organization Unknown Care Team Organization Name Specialty Phone Email Start Date End Da te [facility] Lulu [facility]ing [facility] 03/09/20232023
--- OUTSIDE RECORDS SUMMARY | 2025-06-07 14:43 | XMS_ITS | Encounter Summary ---
Author Organization [employer] Address [address] [place] [address] Care Team Providers Care Branch Mechanic Name Role Phone Munir Ruiz MD Primary Care Prov ider Reason for Visit * Reason Onset Date Comments Med Refill 09/12/2024 Encounter Details Date Type Department Care Team ([facility] st Contact Info) Description 09/12/2024 Telephone [facility] MEDICINE [address] [place] [address] Munir Ruiz MD [address] [place] [address] Med Refill Social History Tobacco Use Types [...] immediate release tablet To be sent to: [facility] - [place], [place] - [address] [place] [address] documented in this encounter Plan of Treatment Upcoming Encounters Date Type Department Care Team ([facility] st Contact Info) Description 07/05/2025 3:15 PM EDT Clinical Support [facility] MED & PEDS [address] [place] [address] Di Ulloa RN [address] [place] [address] 07/21/2025 8:30 AM EDT Telemedicine [facility] [address] [place] [address] Munir Ruiz MD [address] [place] [address] documented as of this encounter Visit Diagnoses Not on filedocumented in this encounter Additional Health Concerns Assessment Noted Time PHQ-9 Depression Total Score: 3 08/28/20 23 8:58 AM EDT documented as of this encounter Care Teams Branch Mechanic Relationship Specialty Start Date End Date Munir Ruiz MD [address] [place] [address] PCP - General Internal Medicine 10/12/23 documented as of this encounter
--- OUTSIDE RECORDS SUMMARY | 2025-06-07 14:43 | XMS_ITS | Encounter Summary ---
Author Organization [facility] Address [address] [place] [address] Care Team Providers Care Gis Specialist Name Role Phone Physician, No Pcp Primary Care Provider Unavaila ble Encounter Details Date Type Department Care Team (Late st Contact Info) Description 04/03/2025 Lab Requisition [facility] - Main Lab [address] [facility] [place] [phone] Dario Mariscal DMD [address] [place] [address] Personal history of irradiation Social History Tobacco [...] fungi (Control appropriate) 1:00 PM EDT [facility] Addendum electronically signed by Logan Rangel MD on 04/05/2025 at 1:00 PM Final Diagnosis Oral Cavity, right mandible-biopsy: -ACUTE AND CHRONIC MUCOSITIS -Negative for malignancy -See addendum for GMS stain result 1:00 PM EDT [facility] Clinical Information Right mandible, Hx of XRT for SCCa ? Oral right mandible 1:00 PM EDT [facility] Gross Description A. Oral Cavity, right mandible: Labeled with the patient's name and information. Received in formalin is a 0.5 x 0.3 x 0.2 cm irregular johnson-white rubbery tissue fragment which is wrapped in paper and submitted in toto in one cassette, one piece, multiple levels on one slide. ANGIE 1:00 PM EDT [facility] Disclaimer NOTE: The immunohistochemical tests and in situ hybridization tests were developed and their performance characteristics were determined by [facility]. They have not been cleared [...] fixed and paraffin embedded. 1:00 PM EDT [facility] Tissue Oral cavity structure / Unknown 03/28/2025 11:30 AM EDT 04/03/2025 9:00 AM EDT us Dario Mariscal DMD LAB PATHOLOGY ORDERABLES Edit ed Result - Final [facility] [address] [place] [address], documented in this encounter Visit Diagnoses Diagnosis Personal history of irradiation Personal history of irradiation, presenting hazards to health documented in this encounter Care Teams Gis Specialist Relationship Specialty Start Date End Date Physician, No Pcp PCP - General 04/04/25 documented as of this encounter
== END 2025-06-07 14:41 | disposition home or self-care (01) ==
LOC: HO.HKAM 14:10
PROVIDERS: PCP Internal Medicine; Visit Provider Internal Medicine Hypertension Specialist
DX: I10 Essential (primary) hypertension (principal)
CPT/HCPCS: 99214

== ENCOUNTER → 2025-06-07 14:10 | Outpatient (BNVA) | payer MEDICARE, SELFPAY | PROVIDERS: PCP Internal Medicine; Visit Provider Internal Medicine Hypertension Specialist | DX: I10 Essential (primary) hypertension (principal) | CPT/HCPCS: 99212 ==

== ENCOUNTER 2025-07-31 12:34 | Outpatient (REF) | payer MEDICARE, SELFPAY ==
--- NOTE | ~2025-07-31 | CT_ITS ---
EXAMINATION: CT CHEST WITHOUT CONTRAST CLINICAL INFORMATION: Solitary pulmonary nodule. R91.1.. COMPARISON: March 12, 2009 report since images are not available on PACS.. TECHNIQUE: Multidetector volumetric CT imaging of the chest was done. Axial MIP volume rendering provided. Sagittal and coronal reformatted images were obtained. This CT examination was performed using dose optimization techniques as appropriate, variously including the following: *Automated exposure control *Adjustment of mA and/or kV according to patient size (this includes techniques or standardized protocols for targeted exams where dose is matched to indication/reason for exam; i.e. extremities or head) *Use of iterative reconstruction technique DLP: 137 mGy centimeter. FINDINGS: PERSONAL SUPPORT WORKER: Patient's large body habitus. S-shaped curvature of the thoracic spine. Vascular clips right upper quadrant abdomen. Both upper extremities at the size of the head. LUNGS: 9 mm lobulated noncalcified pulmonary nodule, left lower lung lobe. 3.3 mm noncalcified pulmonary nodule, right lower lung lobe and a few, less than 2 mm noncalcified pulmonary nodules in the right lower lung lobe. Multiple scattered 1 mm calcified pulmonary nodules mostly on the right lung. 1 mm noncalcified pulmonary nodules in the left lower lung lobe. No bronchiectasis. No honeycombing. Subsegmental atelectasis scarring, lung bases. Respiratory airways patent. MEDIASTINUM: No gross mediastinal lymphadenopathy. Calcified plaques in the thoracic aorta arch wall extending branches without gross aneurysm. No pericardial effusion. No pneumomediastinum. No hemopericardium. The thyroid gland is small. Calcified plaques in the aortic valve and mitral valve. Prominent cardiac apex. CORONARY ARTERY CALCIFICATION: Calcified plaques. PLEURA: No pleural effusion. No pneumothorax. No calcified pleural plaques. AXILLA: No lymphadenopathy. UPPER ABDOMEN: Small hiatal hernia. Nodular surface of the liver. Status post cholecystectomy. Moderate intrahepatic and extrahepatic biliary ductal dilatation. Calcified plaques abdominal aorta wall and splenic arteries. OSSEOUS STRUCTURES: Mild less than 10% superior endplate compression deformity in the anterior aspect of T4 vertebra. Multilevel spondylosis. No gross malalignment. No lytic or blastic lesions. Sternum is intact. No acute rib fracture. CT/CT chest wo IV con IMPRESSION: 9 mm noncalcified pulmonary nodule, left lower lung lobe. Overall stable. 3.3 mm noncalcified pulmonary nodule, right lower lung lobe. 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 Recommend follow-up 18-24 months Fleischner guidelines were followed. Electronically signed by: David Curry MD 07/31/2025 01:19 PM EDT RP
--- OUTSIDE RECORDS SUMMARY | 2025-07-31 13:44 | XMS_ITS | Encounter Summary ---
Author Organization [employer] Address [address] [place] [address] Care Team Providers Care Yacht Hand Name Role Phone Munir Ruiz MD Primary Care Prov ider Reason for Visit * Reason Onset Date Comments Med Refill 09/12/2024 Encounter Details Date Type Department Care Team ([facility] st Contact Info) Description 09/12/2024 Telephone [facility] MEDICINE [address] [place] [address] Munir Ruiz MD [address] [place] [address] Med Refill Social History Tobacco Use Types [...] television Not at all 09/13/2024 1:43 PM Berniec Zimmer [place] Moving or speaking so slowly [...] immediate release tablet To be sent to: [facility] - [place], [place] - [address] [facility] documented in this encounter Plan of Treatment Upcoming Encounters Date Type Department Care Team (Late st Contact Info) Description 10/03/2025 1:30 PM EST Clinical Support [facility] MED & PEDS [address] [place] [address] Di Ulloa, ANA [address] [place] [address] documented as of this encounter Visit Diagnoses Not on filedocumented in this encounter Additional Health Concerns Assessment Noted Time PHQ-9 Depression Total Score: 3 08/28/20 8:58 AM EDT documented as of this encounter Care Teams Yacht Hand Relationship Specialty Start Date End Date Munir Ruiz MD [address] [facility] [place] [address] PCP - General Internal Medicine 10/12/23 documented as of this encounter
--- OUTSIDE RECORDS SUMMARY | 2025-07-31 13:44 | XMS_ITS | Encounter Summary ---
Author Organization [employer] Address [address] [place] [address] 7 [place] [address] Care Team Providers Care Jar Capper Name Role Phone Munir Ruiz MD Primary Care Prov ider Encounter Details Date Type Department Care Team (Late st Contact Info) Description 09/14/2024 Orders Only [facility] [address] [place], [place] [phone] ProviderArjun MD Social History Tobacco Use Types [...] Description 10/03/2025 1:30 PM EST Clinical Support [facility] [address] [place] [address] Di Ulloa RN [address] [place] [address] documented as of this encounter Procedures Procedure Name Priority Date/Time Associated Diagnosis Comments HM MAMMOGRAPHY Routine 11/13/2023 11:54 AM EST documented in this encounter Results * Hm Mammography (11/13/2023 11:54 AM EST) Anatomical Region Laterality Modality Other Historical Provider HEALTH MAINTENANCE Final Result documented in this encounter Visit Diagnoses Not on filedocumented in this encounter Additional Health Concerns Assessment Noted Time PHQ-9 Depression Total Score: 0 09/13/20 24 1:43 PM EST documented as of this encounter Care Teams Jar Capper Relationship Specialty Start Date End Date Munir Ruiz MD [address] [place] [address] PCP - General Internal Medicine 10/12/23 documented as of this encounter
--- OUTSIDE RECORDS SUMMARY | 2025-07-31 13:45 | XMS_ITS | Encounter Summary ---
Author Organization [employer] Address [address] [place] [address] Care Team Providers Care Shift Supervisor Melting Name Role Phone Munir Ruiz MD Primary Care Prov ider Reason for Visit * Reason Onset Date Comments Med Refill 05/08/2025 Encounter Details Date Type Department Care Team (Late st Contact Info) Description 05/08/2025 Refill [facility] MEDICINE [address] [place] [address] Munir Ruiz MD [address] [place] [address] Benign hypertension Social History Tobacco Use Types Packs/Day [...] Upcoming Encounters Date Type Department Care Team ([facility] st Contact Info) Description 10/03/2025 1:30 PM EST Clinical Support [facility] MED & PEDS [address] [place] [address] Di Ulloa, ANA [address] [place] [address] documented as of this encounter Visit Diagnoses Diagnosis Benign hypertension Essential hypertension, benign documented in this encounter Additional Health Concerns Assessment Noted Time PHQ-9 Depression Total Score: 0 09/13/20 24 1:43 PM EST documented as of this encounter Care Teams Shift Supervisor Melting Relationship Specialty Start Date End Date Munir Ruiz MD [address] [place] [address] PCP - General Internal Medicine 10/12/23 documented as of this encounter
--- OUTSIDE RECORDS SUMMARY | 2025-07-31 13:45 | XMS_ITS | Clinical Summary ---
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 Lumbago 11/27/2006 DX:Lumbago Appendicitis, unqualified 11/27/2006 DX:Rajendra endicitis, unqualified Cholelithiasis 03/27/2009 DX:Cholelithiasi s; COMMENT: Had sharon seay 2008 Historical Medical DX 03/27/2009 DX:Pulmona ry nodule Unspecified essential hypertension DX:Unspecified essential hypertension Essential hypertension, benign 03/23/2008 D X:Essential hypertension, benign Family History Medical History Relation Name Comments Cataracts Maternal Grandmother Cataracts Mother Heart attack Mother 70s Hypertension Mother Other: AAA Mother Cataracts Sister Other cancer Sister cervical Blindness Neg Hx Glaucoma Neg Hx Macular degeneration Neg Hx Strabismus Neg Hx Relation Name Status Comments Maternal Grandmother Mother Sister Social History Tobacco Use Types [...] on file Sexual Orientation Not on file Obstetrics History Plan of Treatment Health Maintenance Due Date Last Done Comments Breast Cancer Screening 1955 Zoster Vaccines (1 of 2) 2004 Depression Screening 11/02/2024 Falls Risk Assessment 04/03/2025 Hypertension/CHF/CAD Annual BMP Blood Test 04/03/2025 Medicare Annual Wellness Visit 04/03/2025 Osteoporosis Screening (Bone Density Screening) 04/03/2025 Social Influencers of Health Screening 04/03/2025 COVID-19 Vaccine ( season) 2025 09/13/2024, 08/30/2021, 02/11/2021, Additional history exists Influenza Vaccine (#1) 2025 , 09/09/2023, 08/11/2022, Additional history exists Colorectal Cancer Screening: FIT-DNA (Cologuard) 11/10/2026 11/10/2023 Cholesterol Screening (Lipid Panel) 08/23/2029 08/23/2024 DTaP,Tdap,and Td Vaccines (3 - Td or Tdap) 04/16/2030 04/16/2020, 04/03/2003 RSV Immunization Adult Patients Completed 09/09/2023 Hepatitis C Screening Completed 09/18/2023 Pneumococcal Vaccine: 50+ Years Completed 09/13/2024, 08/02/2013 [...] on patient's age to complete this topic MMR Vaccines Aged Out No longer eligi ble based on patient's age to complete this topic Meningococcal ACWY Vaccine Aged Out N o longer eligible based on patient's age to complete this topic Meningococcal B Vaccine Aged Out No l onger eligible based on patient's age to complete this topic RSV Immunization Patients Under 20 months Aged Out No longer eligible based on patient's age to complete this topic Varicella Vaccines Aged Out No longer eligible based on patient's age to complete this topic Insurance MEDICARE AET[employer] MEDICARE ADVANTAGE Care Teams Stripper Preliminary Relationship Specialty Start Date End Date Physician, No Pcp PCP - General 04/04/25
--- OUTSIDE RECORDS SUMMARY | 2025-07-31 13:45 | XMS_ITS | Encounter Summary ---
Author Organization [employer] Address [address] [place] [address] Care Team Providers Care Radiology Ct Technologist Name Role Phone Munir Ruiz MD Primary Care Prov ider Reason for Visit * Reason Onset Date Comments Med Refill 02/27/2025 Encounter Details Date Type Department Care Team ([facility] st Contact Info) Description 02/27/2025 Refill [facility] MEDICINE [address] [place] [address] Munir Ruiz MD [address] [place] [address] Social History Tobacco Use Types Packs/Day Years [...] Description 10/03/2025 1:30 PM EST Clinical Support [facility] MED & PEDS [address] [place] [address] Di Ulloa, ANA [address] [place] [address] documented as of this encounter Visit Diagnoses Not on filedocumented in this encounter Additional Health Concerns Assessment Noted Time PHQ-9 Depression Total Score: 0 09/13/20 24 1:43 PM EST documented as of this encounter Care Teams Radiology Ct Technologist Relationship Specialty Start Date End Date Munir Ruiz MD [address] [place] [address] PCP - General Internal Medicine 10/12/23 documented as of this encounter
--- OUTSIDE RECORDS SUMMARY | 2025-07-31 13:45 | XMS_ITS | Encounter Summary ---
Author Organization [employer] Address [address] [place] [address] Care Team Providers Care Ambulance Officer Name Role Phone Munir Ruiz MD Primary Care Prov ider Reason for Visit * Reason Onset Date Comments Med Refill 03/28/2025 Encounter Details Date Type Department Care Team (Late st Contact Info) Description 03/28/2025 Refill [facility] MEDICINE [address] [place] [address] Munir Ruiz MD [address] [place] [address] Benign hypertension Social History Tobacco Use Types [...] Upcoming Encounters Date Type Department Care Team ([facility] st Contact Info) Description 10/03/2025 1:30 PM EST Clinical Support [facility] MED [facility] PEDS [address] [place] [address] Di Ulloa, ANA [address] [place] [address] documented as of this encounter Visit Diagnoses Diagnosis Benign hypertension Essential hypertension, benign documented in this encounter Additional Health Concerns Assessment Noted Time PHQ-9 Depression Total Score: 0 09/13/20 24 1:43 PM EST documented as of this encounter Care Teams Ambulance Officer Relationship Specialty Start Date End Date Munir Ruiz MD [address] [place] [address] PCP - General Internal Medicine 10/12/23 documented as of this encounter
--- OUTSIDE RECORDS SUMMARY | 2025-07-31 13:45 | XMS_ITS | Encounter Summary ---
Author Organization [employer] Address [address] [place] [address] 7 [place] [address] Care Team Providers Care Music Artist Name Role Phone Munir Ruiz MD Primary Care Prov ider Encounter Details Date Type Department Care Team ([facility] Contact Info) Description 01/17/2025 Orders Only [facility] MED & PEDS [address] [place], [place] [phone] Munir Ruiz MD [address] [place] [address] Social History Tobacco Use Types Packs/Day Years [...] this encounter Functional Status * Over the last 2 weeks, how often have you been bothered by any of the following problems? Question Answer Date of Assessment Author Feeling nervous, anxious, or on edge 2 01/17/2025 9:30 AM EDT Di Ulloa RN Not being able to stop or co ntrol worrying 2 01/17/2025 9:30 AM EDT Di Ulloa RN Worrying too much about diff erent things 2 01/17/2025 9:30 AM EDT Di Ulloa RN Trouble relaxing 2 01/17/2025 9:30 AM EDT Di Guevara RN Being so restless that it is hard to sit still 0 01/17/2025 9:30 AM EDT Di Ulloa RN Becoming easily annoyed or irritable 0 01/17/2025 9:30 AM EDT Di Ulloa RN Feeling afraid as if somethi ng awful might happen 1 01/17/2025 9:30 AM EDT Di Ulloa RN TOMAS-7 Total Score 9 01/17/2025 9:30 AM EDT Di Ulloa RN documented as of this encounter Plan of Treatment Upcoming Encounters Date Type Department Care Team (Late st Contact Info) Description 10/03/2025 1:30 PM EST Clinical Support [facility] MED & PEDS [address] [place] [address] Di Ulloa, ANA [address] [place], [place] [phone] documented as of this encounter Visit Diagnoses Not on filedocumented in this encounter Additional Health Concerns Assessment Noted Time PHQ-9 Depression Total Score: 0 09/13/20 24 1:43 PM EST documented as of this encounter Care Teams Music Artist Relationship Specialty Start Date End Date Munir Ruiz MD [address] [place] [address] PCP - General Internal Medicine 10/12/23 documented as of this encounter
--- OUTSIDE RECORDS SUMMARY | 2025-07-31 13:45 | XMS_ITS | Encounter Summary ---
Author Organization [employer] Address [address] [facility] 7t [place] [address] Care Team Providers Care Photo Finish Photographer Name Role Phone Munir Ruiz MD Primary Care Prov ider Encounter Details Date Type Department Care Team ([facility] st Contact Info) Description 12/20/2024 Orders Only [facility] [address] [place], [place] [phone] Chetan Hankins MD [address] [place] [address] Social History Tobacco Use Types Packs/Day Years [...] Description 10/03/2025 1:30 PM EST Clinical Support [facility] MED & PEDS [address] [place] [address] Di Ulloa, ANA [address] [place] [address] documented as of this encounter Visit Diagnoses Not on filedocumented in this encounter Additional Health Concerns Assessment Noted Time PHQ-9 Depression Total Score: 0 09/13/20 24 1:43 PM EST documented as of this encounter Care Teams Photo Finish Photographer Relationship Specialty Start Date End Date Munir Ruiz MD [address] [place] [address] PCP - General Internal Medicine 10/12/23 documented as of this encounter
--- OUTSIDE RECORDS SUMMARY | 2025-07-31 13:45 | XMS_ITS | Encounter Summary ---
Author Organization [employer] Address [address] [place] [address] 7 [place] [address] Care Team Providers Care Storage Receipt Poster Name Role Phone Munir Ruiz MD Primary Care Prov ider Encounter Details Date Type Department Care Team ([facility] [place] [facility] Contact Info) Description 11/20/2023 Orders Only [facility] MED [facility]EDS [address] [place], [place] [phone] Munir Ruiz MD [address] [place] [address] Social History Tobacco Use Types Packs/Day Years [...] Upcoming Encounters Date Type Department Care Team ([facility] st Contact Info) Description 10/03/2025 1:30 PM EST Clinical Support [facility] MED & PEDS [address] [place] [address] Di Ulloa RN [address] [place] [address] documented as of this encounter Visit Diagnoses Not on filedocumented in this encounter Additional Health Concerns Assessment Noted Time PHQ-9 Depression Total Score: 3 08/28/20 8:58 AM EDT documented as of this encounter Care Teams Storage Receipt Poster Relationship Specialty Start Date End Date Munir Ruiz MD [address] [place] [address] PCP - General Internal Medicine 10/12/23 documented as of this encounter
--- OUTSIDE RECORDS SUMMARY | 2025-07-31 13:45 | XMS_ITS | Encounter Summary ---
Author Organization [employer] Address [address] [place] [address] Care Team Providers Care Beef Selector Name Role Phone Munir Ruiz MD Primary Care Prov ider Reason for Visit * Reason Onset Date Comments Med Refill 07/18/2024 Encounter Details Date Type Department Care Team ([facility] st Contact Info) Description 07/18/2024 Telephone [facility] MEDICINE [address] [place] [address] Munir Ruiz MD [address] [place] [address] Med Refill Social History Tobacco Use Types [...] encounter Miscellaneous Notes * Telephone Encounter - Darrellangle Hinojosa - 07/18/2024 11:25 AM EDT TC from pt requesting medication refill. Medications needing refill: oxyCODONE (Roxicodone) 5 MG immediate release tablet To be sent to: [facility] [address] [place] [address] documented in this encounter Plan of Treatment Upcoming Encounters Date Type Department Care Team ([facility] st Contact Info) Description 10/03/2025 1:30 PM EST Clinical Support [facility] MED & PEDS [address] [place] [address] Di Ulloa RN [address] [place] [address] documented as of this encounter Visit Diagnoses Not on filedocumented in this encounter Additional Health Concerns Assessment Noted Time PHQ-9 Depression Total Score: 3 08/28/20 8:58 AM EDT documented as of this encounter Care Teams Beef Selector Relationship Specialty Start Date End Date Munir Ruiz MD [address] [place] [address] PCP - General Internal Medicine 10/12/23 documented as of this encounter
--- OUTSIDE RECORDS SUMMARY | 2025-07-31 13:45 | XMS_ITS | Encounter Summary ---
Author Organization [facility] Address [address] [place] [address] Care Team Providers Care Technician Support Engineer Name Role Phone Physician, No Pcp Primary Care Provider Unavaila ble Encounter Details Date Type Department Care Team (Late st Contact Info) Description 04/03/2025 Lab Requisition [facility] - Main Lab [address] [facility] [place] [phone] Dario Mariscal DMD [address] [place] [address] Personal history of irradiation Social History Tobacco [...] for fungi (Control appropriate) 1:00 PM EDT [facility] Addendum electronically signed by Logan Rangel MD on 04/05/2025 at 1:00 PM Final Diagnosis Oral Cavity, right mandible-biopsy: -ACUTE AND CHRONIC MUCOSITIS -Negative for malignancy -See addendum for GMS stain result 1:00 PM EDT [facility] Clinical Information Right mandible, Hx of XRT for SCCa ? Oral right mandible 1:00 PM EDT [facility] Gross Description A. Oral Cavity, right mandible: Labeled with the patient's name and information. Received in formalin is a 0.5 x 0.3 x 0.2 cm irregular johnson-white rubbery tissue fragment which is wrapped in paper and submitted in toto in one cassette, one piece, multiple levels on one slide. ANGIE 1:00 PM EDT [facility] Disclaimer NOTE: The immunohistochemical tests and in situ hybridization tests were developed and their performance characteristics were determined by [facility]. They have not been [...] fixed and paraffin embedded. 1:00 PM EDT [facility] Tissue Oral cavity structure / Unknown 03/28/2025 11:30 AM EDT 04/03/2025 9:00 AM EDT us Dario Mariscal DMD LAB PATHOLOGY ORDERABLES Edit ed Result - Final [facility] [address] [place] [address], documented in this encounter Visit Diagnoses Diagnosis Personal history of irradiation Personal history of irradiation, presenting hazards to health documented in this encounter Care Teams Technician Support Engineer Relationship Specialty Start Date End Date Physician, No Pcp PCP - General 04/04/25 documented as of this encounter
--- OUTSIDE RECORDS SUMMARY | 2025-07-31 13:45 | XMS_ITS | Encounter Summary ---
Author Organization [employer] Address [address] [facility] [address] [place] [address] Care Team Providers Care Derrick Builder Name Role Phone Munir Ruiz MD Primary Care Prov ider Encounter Details Date Type Department Care Team (Late st Contact Info) Description 07/31/2025 Orders Only [facility] External Provider, [facility] Social History Tobacco Use Types Packs/Day Years [...] Description 10/03/2025 1:30 PM EST Clinical Support [facility] MED [facility]EDS [address] [place] [address] Di Ulloa RN [address] [place] [address] documented as of this encounter Procedures Procedure Name Priority Date/Time Associated Diagnosis Comments CT CHEST WO CONTRAST Routine 07/31/2025 12:44 PM EDT documented in this encounter Results * CT Chest w/o Contrast (07/31/2025 12:44 PM EDT) Anatomical Region Laterality Modality Body, Chest Computed Tomogra phy 07/31/2025 12:4 4 PM EDT Narrative 07/31/2025 1:22 PM EDT [address] [address] [address] Scan Report Signed Patient: Bridget Jain MR#: [id number] : 1955 Acct:[id number] Age/Sex: 69 / F ADM Date: 07/31/25 Loc: HO.CT Attending Dr: Uriah Oropeza MD Ordering Physician: Uriah Oropeza MD Date of Service: 07/31/25 Procedure(s): CT chest wo IV con Accession Number(s): [id number] cc: Munir Ruiz MD; Uriah Oropeza MD Report Number: [id number]: Total DLP = 137.00 mGy-cm Reason for Exam: R91.1 - Solitary pulmonary nodule EXAMINATION: CT CHEST WITHOUT CONTRAST CLINICAL INFORMATION: Solitary pulmonary nodule. R91.1.. COMPARISON: March 12, 2009 report since images are not available on PACS.. TECHNIQUE: Multidetector volumetric CT imaging of the chest was done. Axial MIP volume rendering provided. Sagittal and coronal reformatted images were obtained. This CT examination was performed using dose optimization techniques as appropriate, variously including the following: *Automated exposure control *Adjustment of mA and/or kV according to patient size (this includes techniques or standardized protocols for targeted exams where dose is matched to indication/reason for exam; i.e. extremities or head) *Use of iterative reconstruction technique DLP: 137 mGy centimeter. FINDINGS: GEOSCIENTIST: Patient's large body habitus. S-shaped curvature of the thoracic spine. Vascular clips right upper quadrant abdomen. Both upper extremities at the size of the head. LUNGS: 9 mm lobulated noncalcified pulmonary nodule, left lower lung lobe. 3.3 mm noncalcified pulmonary nodule, right lower lung lobe and a few, less than 2 mm noncalcified pulmonary nodules in the right lower lung lobe. Multiple scattered 1 mm calcified pulmonary nodules mostly on the right lung. 1 mm noncalcified pulmonary nodules in the left lower lung lobe. No bronchiectasis. No honeycombing. Subsegmental atelectasis scarring, lung bases. Respiratory airways patent. MEDIASTINUM: No gross mediastinal lymphadenopathy. Calcified plaques in the thoracic aorta arch wall extending branches without gross aneurysm. No pericardial effusion. No pneumomediastinum. No hemopericardium. The thyroid gland is small. Calcified plaques in the aortic valve and mitral valve. Prominent cardiac apex. CORONARY ARTERY CALCIFICATION: Calcified plaques. PLEURA: No pleural effusion. No pneumothorax. No calcified pleural plaques. AXILLA: No lymphadenopathy. UPPER ABDOMEN: Small hiatal hernia. Nodular surface of the liver. Status post cholecystectomy. Moderate intrahepatic and extrahepatic biliary ductal dilatation. Calcified plaques abdominal aorta wall and splenic arteries. OSSEOUS STRUCTURES: Mild less than 10% superior endplate compression deformity in the anterior aspect of T4 vertebra. Multilevel spondylosis. No gross malalignment. No lytic or blastic lesions. Sternum is intact. No acute rib fracture. CT/CT chest wo IV con IMPRESSION: 9 mm noncalcified pulmonary nodule, left lower lung lobe. Overall stable. 3.3 mm noncalcified pulmonary nodule, right lower lung lobe. 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 Recommend follow-up 18-24 months Fleischner guidelines were followed. Electronically signed by: David Curry MD 07/31/2025 01:19 PM EDT RP Dictated By: David Dye MD Signed By: <Electronically signed by David Lopez MD in OV> 07/31/25 1319 DD/ 1244 TD/TT: 07/31/25 1307 Pipeline Technician: Procedure Note Donotuseinterpreter, Image - 07/31/[address] [place] [address] [address] Scan Report Signed Patient: Bridget Jain AMR#: [id number] : 5Acct:[id number] Age/Sex: 69 / FADM Date: 07/31/25 Loc: HO.CT Attending Dr: Uriah Oropeza MD Ordering Physician: Uriah Oropeza MD Date of Service: 07/31/25 Procedure(s): CT chest wo IV con Accession Number(s): [id number] cc: Munir Ruiz MD; Uriah Oropeza MD Report Number: [id number]: Total DLP = 137.00 mGy-cm Reason for Exam: R91.1 - Solitary pulmonary nodule EXAMINATION: CT CHEST WITHOUT CONTRAST CLINICAL INFORMATION: Solitary pulmonary nodule. R91.1.. COMPARISON: March 12, 2009 report since images are not available on PACS.. TECHNIQUE: Multidetector volumetric CT imaging of the chest was done. Axial MIP volume rendering provided. Sagittal and coronal reformatted images were obtained. This CT examination was performed using dose optimization techniques as appropriate, variously including the following: *Automated exposure control *Adjustment of mA and/or kV according to patient size (this includes techniques or standardized protocols for targeted exams where dose is matched to indication/reason for exam; i.e. extremities or head) *Use of iterative reconstruction technique DLP: 137 mGy centimeter. FINDINGS: GEOSCIENTIST: Patient's large body habitus. S-shaped curvature of the thoracic spine. Vascular clips right upper quadrant abdomen. Both upper extremities at the size of the head. LUNGS: 9 mm lobulated noncalcified pulmonary nodule, left lower lung lobe. 3.3 mm noncalcified pulmonary nodule, right lower lung lobe and a few, less than 2 mm noncalcified pulmonary nodules in the right lower lung lobe. Multiple scattered 1 mm calcified pulmonary nodules mostly on the right lung. 1 mm noncalcified pulmonary nodules in the left lower lung lobe. No bronchiectasis. No honeycombing. Subsegmental atelectasis scarring, lung bases. Respiratory airways patent. MEDIASTINUM: No gross mediastinal lymphadenopathy. Calcified plaques in the thoracic aorta arch wall extending branches without gross aneurysm. No pericardial effusion. No pneumomediastinum. No hemopericardium. The thyroid gland is small. Calcified plaques in the aortic valve and mitral valve. Prominent cardiac apex. CORONARY ARTERY CALCIFICATION: Calcified plaques. PLEURA: No pleural effusion. No pneumothorax. No calcified pleural plaques. AXILLA: No lymphadenopathy. UPPER ABDOMEN: Small hiatal hernia. Nodular surface of the liver. Status post cholecystectomy. Moderate intrahepatic and extrahepatic biliary ductal dilatation. Calcified plaques abdominal aorta wall and splenic arteries. OSSEOUS STRUCTURES: Mild less than 10% superior endplate compression deformity in the anterior aspect of T4 vertebra. Multilevel spondylosis. No gross malalignment. No lytic or blastic lesions. Sternum is intact. No acute rib fracture. CT/CT chest wo IV con IMPRESSION: 9 mm noncalcified pulmonary nodule, left lower lung lobe. Overall stable. 3.3 mm noncalcified pulmonary nodule, right lower lung lobe. 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 Recommend follow-up 18-24 months Fleischner guidelines were followed. Electronically signed by: David Curry MD 07/31/2025 01:19 PM EDT Dictated By: David Dye MD Signed By: <Electronically signed by David Lopez MDin OV> 07/31/25 1319 DD/ 1244 TD/TT: 07/31/25 1307 Pipeline Technician: [facility] External Provider IMG CT PROCEDURES Final Result documented in this encounter Visit Diagnoses Not on filedocumented in this encounter Additional Health Concerns Assessment Noted Time PHQ-9 Depression Total Score: 0 09/13/20 24 1:43 PM EST documented as of this encounter Care Teams Derrick Builder Relationship Specialty Start Date End Date Munir Ruiz MD [address] [place] [phone] PCP - General Internal Medicine 10/12/23 documented as of this encounter
--- OUTSIDE RECORDS SUMMARY | 2025-07-31 13:45 | XMS_ITS | Encounter Summary ---
Author Organization [employer] Address [address] [place] [address] [place] [address] Care Team Providers Care Delta System Freight Car Cleaner Name Role Phone Munir Ruiz MD Primary Care Prov ider Reason for Visit * Reason Comments Med Refill Encounter Details Date Type Department Care Team ([facility] st Contact Info) Description 07/18/2025 Refill [facility] [address] [place], [place] [phone] Munir Ruiz MD [address] [place] [address] Chronic pain syndrome Social History Tobacco Use [...] Description 10/03/2025 1:30 PM EST Clinical Support [facility] [address] [place] [address] Di Ulloa RN [address] [place] [address] documented as of this encounter Visit Diagnoses Diagnosis Chronic pain syndrome documented in this encounter Additional Health Concerns Assessment Noted Time PHQ-9 Depression Total Score: 0 09/13/20 24 1:43 PM EST documented as of this encounter Care Teams [employer] Freight Car Cleaner Relationship Specialty Start Date End Date Munir Ruiz MD [address] [place] [address] PCP - General Internal Medicine 10/12/23 documented as of this encounter
--- OUTSIDE RECORDS SUMMARY | 2025-07-31 13:45 | XMS_ITS | Encounter Summary ---
Author Organization [employer] Address [address] [place] [address] Care Team Providers Care Power Supply Engineer Name Role Phone Munir Ruiz MD Primary Care Prov ider Reason for Visit * Reason Onset Date Comments Call Back Request 03/14/2024 Encounter Details Date Type Department Care Team ([facility] st Contact Info) Description 03/14/2024 Telephone [facility] MEDICINE [address] [place] [address] Munir Ruiz MD [address] [place] [address] Call Back Request Social History Tobacco Use [...] Pt wants to clarify scheduling routine for MANAGER SOURCING visits. Pt was sure it was every other month but is confused due to upcoming appt on 04/15 after alreadybeing seen this month on 03/11. If any questions please contact pt at [phone]. documented in this encounter Plan of Treatment Upcoming Encounters Date Type Department Care Team ([facility] st Contact Info) Description 10/03/2025 1:30 PM EST Clinical Support [facility] MED & PEDS [address] [place] [address] Di Ulloa RN [address] [place] [address] documented as of this encounter Visit Diagnoses Not on filedocumented in this encounter Additional Health Concerns Assessment Noted Time PHQ-9 Depression Total Score: 3 08/28/20 23 8:58 AM EDT documented as of this encounter Care Teams Power Supply Engineer Relationship Specialty Start Date End Date Munir Ruiz MD [address] [place] [address] PCP - General Internal Medicine 10/12/23 documented as of this encounter
--- OUTSIDE RECORDS SUMMARY | 2025-07-31 13:45 | XMS_ITS | Encounter Summary ---
Author Organization [employer] Address [address] [place] [address] Care Team Providers Care Admissions Clinician Name Role Phone Munir Ruiz MD Primary Care Prov ider Reason for Visit * Reason Onset Date Comments Med Refill 07/17/2025 Encounter Details Date Type Department Care Team ([facility] st Contact Info) Description 07/17/2025 Telephone [facility] MEDICINE [address] [place] [address] Munir Ruiz MD [address] [place] [address] Med Refill Social History Tobacco Use Types [...] is your housing situation today? I have beauujan ching 09/13/[address] you [...] Miscellaneous Notes * Telephone Encounter - Carlo Jose - 07/17/2025 8:43 AM EDT TC from pt requesting medication refill. Medications needing refill : oxyCODONE (Roxicodone) 5 MG immediate release tablet To be sent to: [facility] - [place], [place] - [address] [place] [address] documented in this encounter Plan of Treatment Upcoming Encounters Date Type Department Care Team ([facility] st Contact Info) Description 10/03/2025 1:30 PM EST Clinical Support [facility]S [address] [place] [address] Di Ulloa RN [address] [place] [address] documented as of this encounter Visit Diagnoses Not on filedocumented in this encounter Additional Health Concerns Assessment Noted Time PHQ-9 Depression Total Score: 0 09/13/20 24 1:43 PM EST documented as of this encounter Care Teams Admissions Clinician Relationship Specialty Start Date End Date Munir Ruiz MD [address] [place] [address] PCP - General Internal Medicine 10/12/23 documented as of this encounter
--- OUTSIDE RECORDS SUMMARY | 2025-07-31 13:45 | XMS_ITS | Encounter Summary ---
Author Organization [employer] Address [address] [place] [address] 7 [place] [address] Care Team Providers Care User Interface Developer Name Role Phone Munir Ruiz MD Primary Care Prov ider Encounter Details Date Type Department Care Team ([facility] Contact Info) Description 09/22/2023 Orders Only [facility]EDS [address] [place], [place] [phone] Devon Smart MD [address] [place] [address] Benign hypertension (Primary Dx); Hypokalemia Social History [...] 1:30 PM EST Clinical Support [facility] MED & PEDS [address] [place] [address] Di Ulloa, RN [address] [place] [address] documented as of this encounter Procedures Procedure Name Priority Date/Time Associated Diagnosis Comments POTASSIUM Routine 10/12/2023 9:37 AM EST Hypokalemia documented in this encounter Results * Potassium (10/12/2023 9:37 AM EST) Potassium 3.3 3.3 - 5.1 mmol/L [facility] Blood Venous blood specimen / Unknown 10/12/2023 9:37 AM EST 10/12/2023 2:06 PM EST us Devon Smart MD LAB BLOOD ORDERABLES Final Result [facility] [address] [place] [address] [phone] documented in this encounter Visit Diagnoses Diagnosis Benign hypertension- Primary Essential hypertension, benign Hypokalemia Hypopotassemia documented in this encounter Additional Health Concerns Assessment Noted Time PHQ-9 Depression Total Score: 3 08/28/20 8:58 AM EDT documented as of this encounter Care Teams User Interface Developer Relationship Specialty Start Date End Date Munir Ruiz MD [address] [place] [address] PCP - General Internal Medicine 10/12/23 documented as of this encounter
--- OUTSIDE RECORDS SUMMARY | 2025-07-31 13:45 | XMS_ITS | Encounter Summary ---
Author Organization [employer] Address [address] [place] [address] Care Team Providers Care Jewel Inserter Name Role Phone Munir Ruiz MD Primary Care Prov ider Reason for Visit * Reason Onset Date Comments Med Refill 03/28/2025 Encounter Details Date Type Department Care Team ([facility] st Contact Info) Description 03/28/2025 Refill [facility] MEDICINE [address] [place] [address] Munir Ruiz MD [address] [place] [address] Social History Tobacco Use Types Packs/Day Years [...] [facility] [address] [place] [address] Di Ulloa, ANA [address] [place] [address] documented as of this encounter Visit Diagnoses Not on filedocumented in this encounter Additional Health Concerns Assessment Noted Time PHQ-9 Depression Total Score: 0 09/13/20 24 1:43 PM EST documented as of this encounter Care Teams Jewel Inserter Relationship Specialty Start Date End Date Munir Ruiz MD [address] [place] [address] PCP - General Internal Medicine 10/12/23 documented as of this encounter
--- OUTSIDE RECORDS SUMMARY | 2025-07-31 13:45 | XMS_ITS | Encounter Summary ---
Author Organization [employer] Address [address] [place] [address] Care Team Providers Care Sessions Clerk Name Role Phone Munir Ruiz MD Primary Care Prov ider Reason for Visit * Reason Onset Date Comments Med Refill 07/17/2025 Encounter Details Date Type Department Care Team ([facility] st Contact Info) Description 07/17/2025 Telephone [facility] MEDICINE [address] [place] [address] Munir Ruiz MD [address] [place] [address] Med Refill Social History Tobacco Use Types [...] Telephone Encounter - Carlo Jose - 07/17/2025 8:45 AM EDT TC from pt requesting medication refill. Medications needing refill : LORazepam (Ativan) 1 MG tablet To be sent to: [facility] documented in this encounter Plan of Treatment Upcoming Encounters Date Type Department Care Team ([facility] st Contact Info) Description 10/03/2025 1:30 PM EST Clinical Support [facility] MED & PEDS [address] [place] [address] Di Ulloa RN [address] [place] [address] documented as of this encounter Visit Diagnoses Not on filedocumented in this encounter Additional Health Concerns Assessment Noted Time PHQ-9 Depression Total Score: 0 09/13/20 24 1:43 PM EST documented as of this encounter Care Teams Sessions Clerk Relationship Specialty Start Date End Date Munir Ruiz MD [address] [place] [address] PCP - General Internal Medicine 10/12/23 documented as of this encounter
--- OUTSIDE RECORDS SUMMARY | 2025-07-31 13:45 | XMS_ITS | Clinical Summary ---
Author Organization [employer] Address [address] [place] [address] 7 [place] [address] Care Team Providers Care Cloth Laminating Supervisor Name Role Phone Munir Ruiz MD Primary Care Prov ider Allergies Active Allergy Reactions Criticality Noted Date Comments Cisplatin Other 08/22/2024 Cortisone Hives 08/28/2023 Iodinated Contrast Media 08/28/2023 Other reaction(s): Acute renal insufficiency due to procedure, Acute renal insufficiency due to procedure, Renal insufficiency Meperidine Other 08/28/2023 Meperidine Hcl Unknown 03/22/2025 Morphine Other 08/28/2023 Medications Blood Pressure kit 1 kit in the morning. 1 kit 08/28/20 23 Active atorvastatin (Lipitor) 40 MG tablet Take 1 tablet (40 mg) by mouth in the morning. 30 tablet 5 05/01/20 25 Active lisinopril 40 MG tabletIndicatio ns:Benign hypertension Take 1 tablet (40 mg) by mouth in the morning. 90 tablet 1 05/01/20 25 Active hydroCHLOROthia zide (HYDRODiuril) 25 MG tabletIndicatio ns:Benign hypertension TAKE 1 TABLET BY MOUTH EVERY MORNING 90 tablet 3 06/19/20 25 Active amLODIPine (Norvasc) 10 MG tablet TAKE 1 TABLET BY MOUTH EVERY DAY 90 tablet 3 06/19/20 25 Active IBU 800 MG tablet TAKE ONE TABLET BY MOUTH EVERY 8 HOURS 90 tablet 1 06/19/20 25 Active levothyroxine (Synthroid, Levoxyl) 50 MCG tablet TAKE ONE TABLET EVERY MORNING BEFORE BREAKFAST 90 tablet 1 06/21/20 25 Active naloxone (Narcan) 4 mg/0.1 mL nasal spray Administer 1 spray (4 mg) into affected nostril(s) if needed for opioid reversal. May repeat every 2-3 minutes if needed, alternating nostrils, until medical assistance becomes available. 2 each 2 07/05/20 25 2025 Active oxyCODONE (Roxicodone) 5 MG immediate release tabletIndicatio ns:Chronic pain syndrome Take 1 tablet (5 mg) by mouth every 8 (eight) hours if needed for severe pain. 84 tablet 07/18/20 Active LORazepam (Ativan) 1 MG tabletIndicatio ns:Anxiety Take 1 tablet (1 mg) by mouth 2 times daily. 60 tablet 07/21/20 25 2024 Active baclofen (Lioresal) 10 MG tablet Take 1 tablet (10 mg) by mouth 3 times daily. 90 tablet 12/28/192024 Discontinued LORazepam (Ativan) 1 MG tablet TAKE ONE TABLET ONCE DAILY NEEDED FOR ANXIETY FOR UP TO 14 DAYS 14 tablet 06/19/20 25 2024 Discontinued(R eorder (will not trigger notification to Pharmacy)) oxyCODONE (Roxicodone) 5 MG immediate release tabletIndicatio ns:Chronic pain syndrome TAKE ONE TABLET BY MOUTH EVERY EIGHT HOURS NEEDED FOR SEVERE PAIN 84 tablet 06/19/20 25 2024 Discontinued(R eorder (will not trigger notification to Pharmacy)) oxyCODONE (Roxicodone) 5 MG immediate release tabletIndicatio ns:Chronic pain syndrome Take 1 tablet (5 mg) by mouth every 8 (eight) hours if needed for severe pain for up to 28 days. 84 tablet 06/19/20 25 2024 LORazepam (Ativan) 1 MG tabletIndicatio ns:Anxiety Take 1 tablet (1 mg) by mouth 2 times daily. 60 tablet 06/19/20 25 2024 Discontinued(R eorder (will not trigger notification to Pharmacy)) LORazepam (Ativan) 1 MG tablet Take 1 tablet (1 mg) by mouth 1 (one) time each day at the same time. 14 tablet 07/18/20 25 2024 Discontinued(T herapy completed) Active Problems Problem Noted Date Diagnosed Date Long-term current use of benzodiazepine 04/05/20 25 Bilateral carotid bruits 03/20/2025 Assessment & Plan (03/20/2025 5:36 PM EDT): Will order carotid u/s Oropharyngeal dysphagia 12/02/2024 Assessment & Plan (12/02/2024 10:30 AM EST): Will refer to GI, she refers has hx of dilation Lung nodule 12/02/2024 Assessment & Plan (02/01/2025 12:55 PM EDT): Discussed with patient pet ct scan findings, told to follow up with [facility] pulmonology for further treatment, she understood and agreed. 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 nodule, Elevated glucose 09/13/2024 Pre-diabetes 09/13/2024 Assessment & Plan (09/13/2024 6:28 PM EST): A1c 6.0%, diet/lifestyle modifications reinforced, will follow up in 8-12 months correction (current) use of opiate analgesic 08/03 Overview (09/28/2024): Dx: chronic pain syndrome Rx: oxycodone 5mg TID orn Last [employer] agreement: 3.15.24 Tier II (visit every 3 [...] 08/29/2023 Anxiety 08/28/2023 08/28/2023 Assessment & Plan (07/21/2025 8:59 AM EDT): Will discontinue the 14 pills as needed, renewed the 1mg BID dose, no suicidal/homicidal ideas Assessment & Plan (01/06/2025 10:59 AM EST): [...] Benign hypertension 08/28/2023 08/28/2023 Assessment & Plan (07/21/2025 8:58 AM EDT): Slightly above target, but previous reading have remained stable, continue low sodium diet and exercise as tolerated, keep bp log, follow up in 3 months Assessment & Plan (05/14/2025 1:20 PM EDT): Controlled, continue current treatment, encouraged low sodium diet and exercise as toelrated Assessment & Plan (03/20/2025 5:34 PM EDT): Uncontrolled, will increase amlodipine and will refer to nephrology Assessment & Plan (01/06/2025 10:59 AM EST): [...] yearly Hypothyroidism 08/28/2023 08/28/2023 Assessment & Plan (05/14/2025 1:21 PM EDT): Clinically and chemically euthyroid, no changes will be made Assessment & Plan (12/02/2024 10:29 AM EST): [...] Encounters Date Type Department Care Team Description 07/31/2025 Orders Only [facility] External Provider, [facility] 07/21/2025 8:30 AM EDT Telemedicine [facility] [address] [place] [address] Munir Ruiz MD Benign hypertension (Primary Dx); Anxiety 07/21/2025 Travel 07/20/2025 Telephone [facility] [address] [place] [address] Munir Ruiz MD chart prep 07/18/2025 Refill [facility] [address] [place] [address] Munir Ruiz MD Chronic pain syndrome 07/17/2025 Refill [facility] [address] [place] [address] Di Ulloa RN Chronic pain syndrome 07/17/2025 Telephone [facility] MED[facility] [address] [place] [address] Munir Ruiz MD Med Refill 07/17/2025 Telephone [facility] MED[facility]INE [address] [place] [address] Munir Ruiz MD Med Refill 07/05/2025 3:15 PM EDT Clinical Support [facility] & PEDS [address] [place] [address] Di Ulloa RN Chronic pain syndrome 07/05/2025 Refill [facility] [address] [place] [address] Di Ulloa RN 07/05/2025 Travel 06/21/2025 Refill [facility] MEDICINE [address] [place] [address] Munir Ruiz MD 06/16/2025 Refill [facility] [address] [place] [address] Leann Earl MD Chronic pain syndrome 06/16/2025 Refill [facility] MED[facility]INE [address] [place] [phone] Munir Ruiz MD Benign hypertension 06/16/2025 Refill [facility] [address] [place] [address] Munir Ruiz MD Chronic pain syndrome; Anxiety 06/05/2025 Refill [facility] [address] [place] [address] Munir Ruiz MD 05/29/2025 Refill [facility] MED[facility] [address] [place] [address] Devon Smart MD 05/23/2025 Refill [facility] [address] [place] [address] Munir Ruiz MD Chronic pain syndrome 05/19/2025 Orders Only [facility] External Provider, [facility] 05/08/2025 Refill [facility] [address] [place] [address] Munir Ruiz MD Benign hypertension 05/03/2025 Refill [facility] [address] [place] [address] Munir Ruiz MD Anxiety 05/01/2025 Refill [facility] MED[facility] [address] [place] [address] Munir Ruiz MD Benign hypertension from Last 3 Months Immunizations Immunization Administration Dates Next Due INFLUENZA INJECTABLE QUADRIV [...] Sign Reading Time Taken Comments Blood Pressure 143/70 07/21/2025 8:35 AM EDT per patient, check at home during phone encounter Pulse 60 03/20/2025 2:52 PM EDT Temperature 36.6 C (97.9 F) 03/20/2025 2:52 PM EDT Respiratory Rate 20 03/20/2025 2:52 PM EDT Oxygen Saturation 96% 03/20/2025 2:5 2 PM EDT Inhaled Oxygen Concentration - - Weight 81.2 kg (179 lb) 03/20/2025 2:52 PM EDT Height 162.6 cm (5' 4 ) 03/20/2025 2:52 PM EDT Body Mass Index 30.73 03/20/2025 2:52 PM EDT Plan of Treatment Upcoming Encounters Date Type Department Care Team (Late st Contact Info) Description 10/03/2025 1:30 PM EST Clinical Support [facility] [address] [place] [address] Di Ulloa ANA [address] [place] [address] Health Maintenance Due Date Last Done Comments CT Colonography 1955 Colonoscopy 1955 FIT 1955 Sigmoidoscopy 1955 Zoster Vaccines (1 of 2) 2004 FOBT 11/10/2024 11/10/2023 COVID-19 Vaccine ( season) 2025 09/13/2024, 01/29/2023, 08/30/2021, Additional history exists Influenza Vaccine (#1) 2025 , 09/09/2023, 08/11/2022, Additional history exists Depression Screening 09/13/2025 09/13/2024, 09/13/20 24 SDOH Screening 09/13/2025 09/13/2024 Mammogram 11/13/2025 11/13/2023 Diabetes: Hemoglobin A1C 04/07/2026 04/07/2025, 09/02 Alcohol/Substance Use Screening 04/24/2026 04/24/2025 Tobacco Screening 07/21/2026 07/21/2025 Colorectal Cancer Screening 11/10/2026 FIT DNA/Cologuard 11/10/2026 11/10/2023 Lipid Panel 04/07/2030 04/07/2025, 08/03, 09/18/2023 DTaP/Tdap/Td Vaccines (2 - Td or [...] WO CONTRAST Routine 07/31/2025 12:44 PM EDT POCT SANTO-14 URINE DRUG SCREEN Routine 07/05/2025 3:34 PM EDT Chronic pain syndrome US RENAL DOPPLER Routine 05/19/2025 1:01 PM EDT LIPID PANEL, STANDARD Routine 04/07/2025 7:01 AM EDT Benign hypertension HEMOGLOBIN A1C Routine 04/07/2025 7:00 AM EDT Benign hypertension HM MAMMOGRAPHY Routine 11/13/2023 11:54 AM EST LAB COLOGUARD COLON CANCER SCREEN Routine 11/10/2023 10:10 AM EST Screening for colon cancer HEPATITIS C AB W/REFL TO HCV RNA, QN, PCR Routine 09/18/2023 8:37 AM EST Benign hypertension from Last 3 Months or Most Recently Relevant to Health Maintenance Results * CT Chest w/o Contrast (07/31/2025 12:44 PM EDT) Anatomical Region Laterality Modality Body, Chest Computed Tomogra phy 07/31/2025 12:4 4 PM EDT Narrative 07/31/2025 1:22 PM EDT [address] [address] [address] Scan Report Signed Patient: Bridget Jain MR#: [id number] : 1955 Acct:[id number] Age/Sex: 69 / F ADM Date: 07/31/25 Loc: HO.CT Attending Dr: Uriah Oropeza MD Ordering Physician: Uriah Oropeza MD Date of Service: 07/31/25 Procedure(s): CT chest wo IV con Accession Number(s): [id number] cc: Munir Ruiz MD; Uriah Oropeza MD Report Number: [id number]: Total DLP = 137.00 mGy-cm Reason for [...] reconstruction technique DLP: 137 mGy centimeter. FINDINGS: TECHNICAL ARTIST: Patient's large body habitus. S-shaped curvature of [...] 07/31/25 1319 DD/ 1244 TD/TT: 07/31/25 1307 Bar Captain: Procedure Note Donotuseinterpreter, Image - 07/31/[address] [place] [address] [address] Scan Report Signed Patient: Bridget Jain [facility]#: [id number] : 5Acct:[id number] Age/Sex: 69 / FADM Date: 07/31/25 Loc: HO.CT Attending Dr: Uriah Oropeza MD Ordering Physician: Uriah Oropeza MD Date of Service: 07/31/25 Procedure(s): CT chest wo IV con Accession Number(s): [id number] cc: Munir uRiz MD; Uriah Oropeza MD Report Number: [id number]: Total DLP = 137.00 mGy-cm Reason for [...] reconstruction technique DLP: 137 mGy centimeter. FINDINGS: TECHNICAL ARTIST: Patient's large body habitus. S-shaped curvature of [...] 07/31/25 1319 DD/ 1244 TD/TT: 07/31/25 1307 Bar Captain: [facility] External Provider IMG CT PROCEDURES Final Result * (ABNORMAL) POCT SANTO-14 Urine Drug Screen (07/05/2025 3:34 PM EDT) THC Negative Negative Cocaine Screen, Urine Negative Negative Opiate Screen, Urine Negative Negative Methamphetamine Screen Urine Negative Negative Amphetamine Screen, Urine Negative Negative Benzodiazepines Screen, Urine Positive(A) Negative Barbiturate Screen, Urine Negative Negative Methadone Screen, Urine Negative Negative Buprenophine Screen, Urine Negative Negative TCA, Urine Negative Negative MDMA Urine Negative Negative ng/mL Oxycodone Screen, Urine Positive(A) Negative Phencyclidine (PCP), Urine Negative Negative Propoxyphene, Urine Negative Negative Fentanyl, Urine Negative Negative Urine Urine specimen obtained by clean catch procedure / Unknown 07/05/2025 3:34 PM EDT Narrative Di Ulloa RN - 07/05/2025 3:34 PM EDT Internal Pass Control Lot# [id number] Exp: 09-01-26 Munir Massey MD POINT OF CARE TEST ENTER/EDIT ORDERABLES Final Result * US RENAL DOPPLER (05/19/2025 1:01 PM EDT) Anatomical Region Laterality Modality Abdomen Ultrasound 05/19/2025 1:01 PM EDT Narrative 05/19/2025 1:03 PM EDT [facility] Adult Primary Care [facility] [place] [address] Ultrasound Report Signed Patient: Bridget Jain MR#: [id number] : 1955 Acct:[id number] Age/Sex: 69 / F ADM Date: 05/19/25 Loc: HO.HMGCX Attending Dr: Rafy Carey MD Ordering Physician: Rafy Carey MD Date of Service: 05/19/25 Procedure(s): US renal doppler Accession Number(s): [id number] cc: Rafy Carey MD; Munir Ruiz MD CLINICAL HISTORY: I10 - Essential (primary) hypertension US renal duplex ultrasound Comparison: None Technique: Real time duplex ultrasound imaging was performed by the foreign language teacher. Multiple associate sales representative static images were saved for review. Findings: Aorta: Normal waveform, 72.0 cm/s. Right kidney: Normal size and echotexture, 10.7 cm length. Benign renal cortical cyst upper pole measuring 14 x 14 x 13 mm Main renal artery peak systolic velocities: Proximal: 229.0 cm/s Mid: 174.0 cm/s Distal: 98.0 cm/s Segmental resistive index: Upper pole: 0.78, midpole 0.77 and lower pole 0.74. RAR: 3.18 Right renal vein is patent Left kidney: Normal size and echotexture, 9.8 cm length. Main renal artery peak systolic velocities: Proximal: 218.0 cm/s Mid: 182.0 cm/s Distal: 87.0 cm/s Segmental resistive index: Upper pole 0.76, midpole 0.74, lower pole 0.79. RAR: 3.03 Left renal pain vein is patent Impression: 1. Kidneys are normal in size and echotexture. Incidental benign renal cortical cyst upper pole right kidney. 2. A peak systolic velocity greater than 180 cm/sec and an RAR less than 3.5 suggest less than 60% stenosis bilaterally. 3. Resistive indices all below 0.80 This document has been electronically signed by: Zohaib Dyer MD on 05/19/2025 13:01:41 Dictated By: Zohaib Dyer MD Signed By: <Electronically signed by Zohaib Dyer MD in OV> 05/19/25 1302 DD/ 1301 TD/TT: 05/19/25 1301 Bar Captain: Procedure Note Donotuseinterpreter, Image - 05/19/2025 [facility] Adult Primary Care [facility] [place] [address] Ultrasound Report Signed Patient: Bridget Jain [facility]#: [id number] : 5Acct:[id number] Age/Sex: 69 / FADM Date: 05/19/25 Loc: HOGilbertHMGCX Attending Dr: Rafy Carey MD Ordering Physician: Rafy Carey MD Date of Service: 05/19/25 Procedure(s): US renal doppler Accession Number(s): [id number] cc: Rafy Carey MD; Munir Ruiz MD CLINICAL HISTORY: I10 - Essential (primary) hypertension US renal duplex ultrasound Comparison: None Technique: Real time duplex ultrasound imaging was performed by the foreign language teacher. Multiple associate sales representative static images were saved for review. Findings: Aorta: Normal waveform, 72.0 cm/s. Right kidney: Normal size and echotexture, 10.7 cm length. Benign renal cortical cyst upper pole measuring 14 x 14 x 13 mm Main renal artery peak systolic velocities: Proximal: 229.0 cm/s Mid: 174.0 cm/s Distal: 98.0 cm/s Segmental resistive index: Upper pole: 0.78, midpole 0.77 and lower pole 0.74. RAR: 3.18 Right renal vein is patent Left kidney: Normal size and echotexture, 9.8 cm length. Main renal artery peak systolic velocities: Proximal: 218.0 cm/s Mid: 182.0 cm/s Distal: 87.0 cm/s Segmental resistive index: Upper pole 0.76, midpole 0.74, lower pole 0.79. RAR: 3.03 Left renal pain vein is patent Impression: 1. Kidneys are normal in size and echotexture. Incidental benign renal cortical cyst upper pole right kidney. 2. A peak systolic velocity greater than 180 cm/sec and an RAR less than 3.5 suggest less than 60% stenosis bilaterally. 3. Resistive indices all below 0.80 This document has been electronically signed by: Zohaib Dyer MD on 05/19/2025 13:01:41 Dictated By: Zohaib Dyer MD Signed By: <Electronically signed by Zohaib Dyer MD in OV> 05/19/25 1302 DD/ 1301 TD/TT: 05/19/25 1301 Bar Captain: us [facility] External Provider IMG US PROCEDURES Final Result * Lipid Panel, Standard (04/07/2025 7:01 AM EDT) Triglycerides 87 <150 mg/dL [facility] Comment:Desirable Triglyceri de: less than 150 mg/dLBorderline High Triglyceride 150-199 mg/dLHigh Triglyceride: 200-499 mg/dLVery High Triglyceride: greater than or equal to 5OO mg/dL Cholesterol 149 <200 mg/dL [facility] Comment:Desirable Cholestero l: less than 200 mg/dLBorderline High Cholesterol: 200-239 mg/dLHigh Cholesterol: greater than 239 mg/dL LDL Cholesterol Calculated 83 <100 mg/dL [facility] Comment:Desirable LDL: less than 100 mg/dLNear Optimal/Above Optimal LDL: 110- 129 mg/dLBorderline High LDL: 130-159 mg/dLHigh LDL: 160-189 mg/dLVery High LDL: greater than or equal to 190 mg/dL HDL Cholesterol 49 >40 mg/dL [facility] Comment:Desirable HDL: great er than 40 mg/dL Note: This HDL assay may give artificially low results in patients with liver disease. Blood Venous blood specimen / Unknown 04/07/2025 7:01 AM EDT 04/07/2025 10:07 AM EDT Munir Massey MD LAB BLOOD ORDERABL ES Final Result [facility] [address] [place] [address] [phone] * Hemoglobin A1c (04/07/2025 7:00 AM EDT) Hemoglobin A1c 6.0 <6.0 % [facility] Comment:Hemoglobin A1C Refer ence Range Adults: 4.8 - 6.0 % Non diabetic: < 6.0 % Goal: < 7.0 %Additional Action Suggested: > 8.0 %Note: Hemoglobin A1c results are invalid for patients with abnormal amounts of HbF. Blood transfusions may impact the HbA1c concentration in the patient sample. Estimated Average Glucose 126 mg/dL [facility] Comment:eAG = Estimated ave rage glucose which is %A1C expressed asaverage glucose, using the formula of the F2L-OkehwbmLaqtsjv Glucose study (ADAG), Diabetes Care, Vol.31,#8,Jun. 2007 Blood Venous blood specimen / Unknown 04/07/2025 7:00 AM EDT 04/07/2025 10:07 AM EDT Munir Massey MD LAB BLOOD ORDERABL ES Final Result [facility] [address] [place] [address] [phone] * Hm Mammography (11/13/2023 11:54 AM EST) Anatomical Region Laterality Modality Other Arjun Provider HEALTH MAINTENANCE Final Result * Cologuard?? colon cancer screening (11/10/2023 10:10 AM EST) Cologuard Result Negative Negative 11/27/19 10:38 AM EST [facility] (CLIA #:[id number]) Comment: NEGATIVE TEST RESULT. A negative Cologuard result indicates a low likelihood that a colorectal cancer (CRC) or advanced adenoma (adenomatous polyps with more advanced pre-malignant features) is present. The chance that a person with a negative Cologuard test has a colorectal cancer is less than 1 in 1500 (negative predictive value >99.9%) or has an advanced adenoma is less than 5.3% (negative predictive value 94.7%). These data are based on a prospective cross-sectional study of 10,000 individuals at average risk for colorectal cancer who were screened with both Cologuard and colonoscopy. (Bhavik Schaefer al, N Engl J Med 2014;370(14):1648-1799) The normal value (reference range) for this assay is negative. COLOGUARD RE-SCREENING RECOMMENDATION: Periodic colorectal cancer screening is an important part of preventive healthcare for asymptomatic individuals at average risk for colorectal cancer. Following a negative Cologuard result, the [place] Cancer Society and U.S. Multi-Society Task Force screening guidelines recommend a Cologuard re-screening interval of 3 years. References: [place] [employer] Guideline for Colorectal Cancer Screening: https://www.cancer.org/cancer/jucif-khtxlk-zquxsd/yzziuootr-xshoioexn-htczcpo/ac s-rec ommendations.html.; Yan DK, Herminio CR, Priyanka SharpK, Colorectal Cancer Screening: Recommendations for Physicians and Patients from the U.S. Multi-Society Task Force on Colorectal Cancer Screening , Am J Gastroenterology 2017; 112:8344-5577. TEST DESCRIPTION: Composite algorithmic analysis of stool DNA-biomarkers with hemoglobin immunoassay. Quantitative values of individual biomarkers are not [...] (Bhavik Schaefer al, N Engl J Med 2014;370(14):4904-6261.) Cologuard may produce a false negative or false positive result (no colorectal cancer or precancerous polyp present at colonoscopy follow up). A negative Cologuard test result does not guarantee the absence of CRC or advanced adenoma (pre-cancer). The current Cologuard screening interval is every 3 years. ([place] [employer] Society and U.S. Multi-Society Task Force). Cologuard performance data in a 10,000 patient pivotal study using colonoscopy as the reference method can be accessed at the following location: www.So Protect Me.com/results. Additional description of the Cologuard test process, warnings and precautions can be found at www.Trendrrd.com. Stool specimen (specimen) 11/10/2023 10:10 AM EST 11/11/2023 2:32 PM EST Munir Massey MD LAB MOLECULAR DIAG NOSTICS ORDERABLES Final Result Performing Organization Address [facility] Co de Phone Number [facility] (CLIA #:[id number]) [place] [address], * Hepatitis C Antibody with Reflex to HCV, RNA, Quantitative, Real-Time PCR (09/18/2023 8:37 AM EST) Hepatitis C Antibody Nonreactive Nonreactive [facility] Comment:Antibodies to HCV no t detected; does not exclude early acuteHCV infection. Blood Venous blood specimen / Unknown 09/18/2023 8:37 AM EST 09/18/2023 2:26 PM EST Munir Massey MD LAB BLOOD ORDERABL ES Final Result Performing Organization Address [facility] Co de Phone Number [facility] [address] [place] [address] [phone] from Last 3 Months or Most Recently Relevant to Health Maintenance Insurance [employer] [place] [id number] [employer] MEDICARE REPLACEMENT Care Teams Cloth Laminating Supervisor Relationship Specialty Start Date End Date Munir Ruiz MD [address] [place] [phone] PCP - General Internal Medicine 10/12/23
--- OUTSIDE RECORDS SUMMARY | 2025-07-31 13:45 | XMS_ITS | Encounter Summary ---
Author Organization [employer] Address [address] [place] [address] Care Team Providers Care Preschool Lead Teacher Name Role Phone Munir Ruiz MD Primary Care Prov ider Reason for Visit * Reason Onset Date Comments Medication Question 07/18/2024 Encounter Details Date Type Department Care Team ([facility] st Contact Info) Description 07/18/2024 Telephone [facility] MEDICINE [address] [place] [address] Munir Ruiz MD 505 [place] [address] Medication Question Social History Tobacco Use Types [...] Miscellaneous Notes * Telephone Encounter - Darrell Ashish - 07/18/2024 11:26 AM EDT Tc from pt calling in regards to the Oxycodone and LORazepam, Pt is requesting for the medication to be on the same cycle for her to be able to pick them up at the same time instead of having to make2 different trips to the pharmacy. If any questions you can contact pt at [phone]. documented in this encounter Plan of Treatment Upcoming Encounters Date Type Department Care Team ([facility] st Contact Info) Description 10/03/2025 1:30 PM EST Clinical Support [facility] MED & PEDS 505 [place] [address] Di Ulloa RN 505 [place] [address] documented as of this encounter Visit Diagnoses Not on filedocumented in this encounter Additional Health Concerns Assessment Noted Time PHQ-9 Depression Total Score: 3 08/28/20 23 8:58 AM EDT documented as of this encounter Care Teams Preschool Lead Teacher Relationship Specialty Start Date End Date Munir Ruiz MD [address] [place] [address] PCP - General Internal Medicine 10/12/23 documented as of this encounter
--- OUTSIDE RECORDS SUMMARY | 2025-07-31 13:45 | XMS_ITS | Encounter Summary ---
Author Organization [employer] Address [address] [address] Care Team Providers Care Rehab Aide Name Role Phone Munir Ruiz MD Primary Care Prov ider Reason for Visit * Reason Onset Date Comments Referral 01/17/2025 Encounter Details Date Type Department Care Team ([facility] st Contact Info) Description 01/17/2025 Telephone [facility] MEDICINE 230 [place] [address] Munir Ruiz MD 505 [place] [address] Referral Social History Tobacco Use Types Packs/Day [...] Ulloa RN documented as of this encounter Miscellaneous Notes [...] Description 10/03/2025 1:30 PM EST Clinical Support [facility] MED & PEDS 505 [place] [address] Di Ulloa, ANA 505 [place] [address] documented as of this encounter Visit Diagnoses Not on filedocumented in this encounter Additional Health Concerns Assessment Noted Time PHQ-9 Depression Total Score: 0 09/13/20 24 1:43 PM EST documented as of this encounter Care Teams Rehab Aide Relationship Specialty Start Date End Date Munir Ruiz MD 505 [place] [address] PCP - General Internal Medicine 10/12/23 documented as of this encounter
--- OUTSIDE RECORDS SUMMARY | 2025-07-31 13:45 | XMS_ITS | Encounter Summary ---
Author Organization [employer] Address [address] [place] [address] Care Team Providers Care Quality Control Assessor Name Role Phone Munir Ruiz MD Primary Care Prov ider Reason for Visit * Reason Onset Date Comments Med Refill 04/19/2025 Encounter Details Date Type Department Care Team ([facility] st Contact Info) Description 04/19/2025 Refill [facility] MED & PEDS 505 [place] [address] Munir Ruiz MD 505 [place] [address] Social History Tobacco Use Types Packs/Day Years [...] Description 10/03/2025 1:30 PM EST Clinical Support [facility] MED & PEDS [address] [place] [address] Di Ulloa, ANA 505 [place] [address] documented as of this encounter Visit Diagnoses Not on filedocumented in this encounter Additional Health Concerns Assessment Noted Time PHQ-9 Depression Total Score: 0 09/13/20 24 1:43 PM EST documented as of this encounter Care Teams Quality Control Assessor Relationship Specialty Start Date End Date Munir Ruiz MD 505 [place] [address] PCP - General Internal Medicine 10/12/23 documented as of this encounter
--- OUTSIDE RECORDS SUMMARY | 2025-07-31 13:45 | XMS_ITS | Encounter Summary ---
Author Organization [employer] Address [address] [place] [address] Care Team Providers Care Helper Driver Name Role Phone Munir Ruiz MD Primary Care Prov ider Reason for Visit * Reason Onset Date Comments Med Refill 05/29/2025 Encounter Details Date Type Department Care Team (Late st Contact Info) Description 05/29/2025 Refill [facility] MEDICINE 230 [place] [address] Devon Smart MD 505 [place] [address] Social History Tobacco Use Types Packs/Day Years [...] Description 10/03/2025 1:30 PM EST Clinical Support [facility] MED & PEDS [address] [place] [address] Di Ulloa, ANA 505 [place] [address] documented as of this encounter Visit Diagnoses Not on filedocumented in this encounter Additional Health Concerns Assessment Noted Time PHQ-9 Depression Total Score: 0 09/13/20 24 1:43 PM EST documented as of this encounter Care Teams Helper Driver Relationship Specialty Start Date End Date Munir Ruiz MD 505 [place] [address] PCP - General Internal Medicine 10/12/23 documented as of this encounter
--- OUTSIDE RECORDS SUMMARY | 2025-07-31 13:45 | XMS_ITS | Encounter Summary ---
Author Organization [employer] Address [address] [place] [address] Care Team Providers Care Sales Service Route Manager Name Role Phone Munir Ruiz MD Primary Care Prov ider Reason for Visit * Reason Onset Date Comments New Patient 07/30/2023 Encounter Details Date Type Department Care Team (Late st Contact Info) Description 07/30/2023 Telephone [facility] MEDICINE [address] [place] [address] Munir Ruiz MD [address] [place] [address] New Patient Social History Tobacco Use Types [...] PAR Mari Zuniga called pt to Offer STORE TEAM MEMBER appt. Pt demographics and insurance information were verified. Pt reports the following medical conditions: HBP, High Cholesterol, Cancer low risk. Pt is currently taking medication: Yes (advised to communicate on day of appt) Pt given STORE TEAM MEMBER appt with Dr. Thompson on 08/24/2023 @ 9:00 am. Pt will be sent appt reminder card and medical release form and agrees to complete and to return to medical records prior to STORE TEAM MEMBER appt. documented in this encounter Plan of Treatment Upcoming Encounters Date Type Department Care Team ([facility] st Contact Info) Description 10/03/2025 1:30 PM EST Clinical Support [facility] & PEDS 505 [place] [address] Di Ulloa, ANA 505 [place] [address] documented as of this encounter Visit Diagnoses Not on filedocumented in this encounter Care Teams Sales Service Route Manager Relationship Specialty Start Date End Date Munir Ruiz MD 505 [place] [address] PCP - General Internal Medicine 10/12/23 documented as of this encounter
--- OUTSIDE RECORDS SUMMARY | 2025-07-31 13:45 | XMS_ITS | Encounter Summary ---
Author Organization [employer] Address [address] [place] [address] Care Team Providers Care Window Installer Name Role Phone Munir Ruiz MD Primary Care Prov ider Reason for Visit * Reason Onset Date Comments Med Refill 01/27/2025 Encounter Details Date Type Department Care Team ([facility] st Contact Info) Description 01/27/2025 Telephone [facility] MEDICINE [address] [place] [address] Munir Ruiz MD 505 [place] [address] Med Refill Social History Tobacco Use Types [...] immediate release tablet To be sent to: [facility] documented in this encounter Plan of Treatment Upcoming Encounters Date Type Department Care Team ([facility] st Contact Info) Description 10/03/2025 1:30 PM EST Clinical Support [facility] MED & PEDS 505 [place] [address] Di Ulloa RN 505 [place] [address] documented as of this encounter Visit Diagnoses Not on filedocumented in this encounter Additional Health Concerns Assessment Noted Time PHQ-9 Depression Total Score: 0 09/13/20 24 1:43 PM EST documented as of this encounter Care Teams Window Installer Relationship Specialty Start Date End Date Munir Ruiz MD [address] [place] [address] PCP - General Internal Medicine 10/12/23 documented as of this encounter
--- OUTSIDE RECORDS SUMMARY | 2025-07-31 13:45 | XMS_ITS | Encounter Summary ---
Author Organization [employer] Address [address] [place] [address] Care Team Providers Care Vice President Of Customer Service Name Role Phone Munir Ruiz MD Primary Care Prov ider Reason for Visit * Reason Onset Date Comments Med Refill 04/19/2025 Encounter Details Date Type Department Care Team ([facility] st Contact Info) Description 04/19/2025 Refill [facility] MED & PEDS 505 [place] [address] Munir Ruiz MD 505 [place] [address] Anxiety Social History Tobacco Use Types Packs/Day [...] [facility] [address] [place] [address] Di Ulloa, ANA 505 [place] [address] documented as of this encounter Visit Diagnoses Diagnosis Anxiety Anxiety state, unspecified documented in this encounter Additional Health Concerns Assessment Noted Time PHQ-9 Depression Total Score: 0 09/13/20 24 1:43 PM EST documented as of this encounter Care Teams Vice President Of Customer Service Relationship Specialty Start Date End Date Munir Ruiz MD 505 [place] [address] PCP - General Internal Medicine 10/12/23 documented as of this encounter
== END 2025-07-31 12:35 | disposition home or self-care (01) ==
LOC: HO.CT 12:34
PROVIDERS: PCP Internal Medicine; Visit Provider Internal Medicine Pulmonary Disease
DX: R91.1 Solitary pulmonary nodule (principal)
CPT/HCPCS: 71250

== ENCOUNTER → 2025-07-31 12:36 | Outpatient (BNV) | payer MEDICARE, SELFPAY | PROVIDERS: PCP Internal Medicine; Visit Provider Radiology Diagnostic Radiology | DX: R91.8 Other nonspecific abnormal finding of lung field (principal) | CPT/HCPCS: 71250 ==

== ENCOUNTER 2025-08-11 08:49 | Outpatient (AMB) | payer MEDICARE, SELFPAY ==
[2025-08-11 09:01] VITALS: BP 124/82; PULSE 68; O2SAT 96; BMI 31.9
--- NOTE | 2025-08-11 09:01 | A.OFFVIS_ITS ---
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 Patient denies any pulmonary related concerns or complaints otherwise. Previously patient had PET-CT that showed only minimal FDG activity in the index left lower lobe 1 cm nodule. After the last office visit patient had his six- month follow-up CT scan that showed stability of underlying pulmonary nodules. [facility] Medical History (Updated 04/05/25 @ 14:12 by Rafy Carey MD) FH: cholecystectomy Surgical History History of total abdominal hysterectomy (~1979) History of neck surgery (~2013) History of appendectomy (~1989) Family History Mother Aortic aneurysm Kidney disease Hypertension Sister Hypertension Diabetes Social History Patient Tobacco Use Status: Former Tobacco user Years Smoked: quit more than 30 years ago Review of Systems Const Denies daytime sleepiness, Denies excessive sweating, Denies fatigue, Denies fever(s), Denies lethargy, Denies malaise, Denies night sweats, Denies snoring and Denies weight loss Eyes Denies blurry vision and Denies itchy eyes ENT Denies nasal congestion, Denies post nasal drip, Denies sinus pain, Denies sinus pressure and Denies other ( Thrush) Card Denies chest pain, Denies pedal edema, Denies dyspnea, Denies orthopnea and Denies paroxysmal nocturnal dyspnea Resp Denies cough, Denies hemoptysis, Denies excessive phlegm production, Denies dyspnea, Denies snoring and Denies wheezing GI Denies abdominal pain and Denies heartburn Musc Denies myalgias, Denies arthralgias and Denies joint swelling Skin/Breast Denies rash Neuro Denies memory loss and Denies seizure-like activity Psych Denies abnormal sleep pattern, Denies anxiety and Denies memory loss Endo Denies excessive sweating, Denies fatigue and Denies heat intolerance Marco/Lymph Denies easy bruising Aller/Immun Denies itchy eyes, Denies seasonal rhinorrhea and Denies wheezing Physical Exam Vital Signs: Last Vital Signs Pulse 68 08/11/25 09:01 BP 124/82 08/11/25 09:01 Pulse Ox 96 08/11/25 09:01 Oxygen Delivery Method Room Air 08/11/25 09:01 BMI result Body Mass Index 31.9 Const General: no acute distress and alert Nutritional Appearance: not obese Orientation/consciousness: Other orientation findings ( oriented) HEENT Head: Yes atraumatic Eyes General: appearance normal, both eyes and all related structures Sclerae: sclerae normal EOM: EOMs intact bilaterally Neck Neck: Yes supple Lymphatic: no lymphadenopathy noted Resp Effort & Inspection: normal respiratory effort and no use of accessory muscles Auscultation: clear to auscultation bilaterally Cardio Rate: regular rate Rhythm: regular rhythm Heart sounds: no gallops, no murmurs and no rubs Skin General skin exam: other ( warm) Extrem General: No clubbing, No cyanosis and No edema Assessment & Plan Assessment & Plan (1) Pulmonary nodule 1 cm or greater in diameter: Code(s): R91.1 - Solitary pulmonary nodule Category: Medical Plan: Results of six-month follow-up CT chest reviewed and shows stable pulmonary nodules. Will repeat CT chest in 12 months. Coding Level of Care Code Est Pt Level 3 (35478) Diagnoses Pulmonary nodule 1 cm or greater in diameter R91.1
--- OUTSIDE RECORDS SUMMARY | 2025-08-11 09:10 | XMS_ITS | Encounter Summary ---
Author Organization [employer] Address [address] [place] [address] Care Team Providers Care Pony Cylinder Press Operator Name Role Phone Munir Ruiz MD Primary Care Prov ider Reason for Visit * Reason Onset Date Comments Med Refill 07/18/2024 Encounter Details Date Type Department Care Team ([facility] st Contact Info) Description 07/18/[address] [facility] MEDICINE [address] [place] [address] Munir Ruiz MD [address] [place] [address] Med Refill Social History Tobacco Use Types [...] immediate release tablet To be sent to: [facility] [address] [place] [address] documented in this encounter Plan of Treatment Upcoming Encounters Date Type Department Care Team ([facility] st Contact Info) Description 10/03/2025 1:30 PM EST Clinical Support [facility] MED & PEDS [address] [place] [address] Di Ulloa RN 505 [place] [address] documented as of this encounter Visit Diagnoses Not on filedocumented in this encounter Additional Health Concerns Assessment Noted Time PHQ-9 Depression Total Score: 3 08/28/20 8:58 AM EDT documented as of this encounter Care Teams Pony Cylinder Press Operator Relationship Specialty Start Date End Date Munir Ruiz MD [address] [place] [address] PCP - General Internal Medicine 10/12/23 documented as of this encounter
--- OUTSIDE RECORDS SUMMARY | 2025-08-11 09:10 | XMS_ITS | Encounter Summary ---
Author Organization [employer] Address [address] [place] [address] Care Team Providers Care Tracer Clerk Name Role Phone Munir Ruiz MD Primary Care Prov ider Reason for Visit * Reason Onset Date Comments Med Refill 03/28/2025 Encounter Details Date Type Department Care Team ([facility] st Contact Info) Description 03/28/2025 Refill [facility] MEDICINE [address] [place] [address] Munir Ruiz MD [address] [place] [address] Social History Tobacco Use Types Packs/Day Years [...] 1:30 PM EST Clinical Support [facility] & PEDS [address] [place] [address] Di Ulloa, ANA 505 [place] [address] documented as of this encounter Visit Diagnoses Not on filedocumented in this encounter Additional Health Concerns Assessment Noted Time PHQ-9 Depression Total Score: 0 09/13/20 24 1:43 PM EST documented as of this encounter Care Teams Tracer Clerk Relationship Specialty Start Date End Date Munir Ruiz MD [address] [place] [address] PCP - General Internal Medicine 10/12/23 documented as of this encounter
--- OUTSIDE RECORDS SUMMARY | 2025-08-11 09:10 | XMS_ITS | Encounter Summary ---
Author Organization [employer] Address [address] [place] [address] Care Team Providers Care Chemical Process Engineer Name Role Phone Munir Ruiz MD Primary Care Prov ider Reason for Visit * Reason Onset Date Comments Med Refill 04/19/2025 Encounter Details Date Type Department Care Team ([facility] st Contact Info) Description 04/19/2025 Refill [facility] & PEDS [address] [place] [address] Munir Ruiz MD [address] [place] [address] Anxiety Social History Tobacco Use Types Packs/Day [...] [facility] [address] [place] [address] Di Ulloa, ANA [address] [place] [address] documented as of this encounter Visit Diagnoses Diagnosis Anxiety Anxiety state, unspecified documented in this encounter Additional Health Concerns Assessment Noted Time PHQ-9 Depression Total Score: 0 09/13/20 24 1:43 PM EST documented as of this encounter Care Teams Chemical Process Engineer Relationship Specialty Start Date End Date Munir Ruiz MD [address] [place] [address] PCP - General Internal Medicine 10/12/23 documented as of this encounter
--- OUTSIDE RECORDS SUMMARY | 2025-08-11 09:10 | XMS_ITS | Encounter Summary ---
Author Organization [employer] Address [address] [place] [address] Care Team Providers Care Lithographic Camera Operator Name Role Phone Munir Ruiz MD Primary Care Prov ider Reason for Visit * Reason Onset Date Comments Med Refill 09/12/2024 Encounter Details Date Type Department Care Team ([facility] st Contact Info) Description 09/12/[address] [facility] MEDICINE [address] [place] [address] Munir Ruiz MD 505 [place] [address] Med Refill Social History Tobacco Use Types [...] to: [facility] [place], [place] - [address] [facility] documented in this encounter Plan of Treatment Upcoming Encounters Date Type Department Care Team (Late st Contact Info) Description 10/03/2025 1:30 PM EST Clinical Support [facility]S 505 [facility] [place] [address] Di Ulloa, ANA 505 [place] [address] documented as of this encounter Visit Diagnoses Not on filedocumented in this encounter Additional Health Concerns Assessment Noted Time PHQ-9 Depression Total Score: 3 08/28/20 8:58 AM EDT documented as of this encounter Care Teams Lithographic Camera Operator Relationship Specialty Start Date End Date Munir Ruiz MD 505 [place] [address] PCP - General Internal Medicine 10/12/23 documented as of this encounter
--- OUTSIDE RECORDS SUMMARY | 2025-08-11 09:10 | XMS_ITS | Encounter Summary ---
Author Organization [employer] Address [address] [place] [address] Care Team Providers Care Machine Ceramic Coater Name Role Phone Munir Ruiz MD Primary Care Prov ider Reason for Visit * Reason Onset Date Comments Med Refill 04/19/2025 Encounter Details Date Type Department Care Team ([facility] st Contact Info) Description 04/19/2025 Refill [facility] MED & PEDS [address] [place] [address] Munir Ruiz MD [address] [place] [address] Social History Tobacco Use Types Packs/Day Years [...] Description 10/03/2025 1:30 PM EST Clinical Support [facility] MED & PEDS [address] [place] [address] Di Ulloa, ANA [address] [place] [address] documented as of this encounter Visit Diagnoses Not on filedocumented in this encounter Additional Health Concerns Assessment Noted Time PHQ-9 Depression Total Score: 0 09/13/20 24 1:43 PM EST documented as of this encounter Care Teams Machine Ceramic Coater Relationship Specialty Start Date End Date Munir Ruiz MD 505 [place] [address] PCP - General Internal Medicine 10/12/23 documented as of this encounter
--- OUTSIDE RECORDS SUMMARY | 2025-08-11 09:10 | XMS_ITS | Encounter Summary ---
Author Organization [employer] Address [address] [place] [address] Care Team Providers Care Ict Support Engineer Name Role Phone Munir Ruiz MD Primary Care Prov ider Reason for Visit * Reason Onset Date Comments Medication Question 07/18/2024 Encounter Details Date Type Department Care Team ([facility] Contact Info) Description 07/18/2024 Telephone [facility] MEDICINE [address] [place] [address] Munir Ruiz MD 505 [place] [address] Medication Question Social History Tobacco Use Types [...] any questions you can contact pt at [phone]. documented in this encounter Plan of Treatment Upcoming Encounters Date Type Department Care Team ([facility] st Contact Info) Description 10/03/2025 1:30 PM EST Clinical Support [facility] MED & PEDS 505 [place] [address] Di Ulloa RN 505 [place] [address] documented as of this encounter Visit Diagnoses Not on filedocumented in this encounter Additional Health Concerns Assessment Noted Time PHQ-9 Depression Total Score: 3 08/28/20 23 8:58 AM EDT documented as of this encounter Care Teams Ict Support Engineer Relationship Specialty Start Date End Date Munir Ruiz MD [address] [place] [address] PCP - General Internal Medicine 10/12/23 documented as of this encounter
--- OUTSIDE RECORDS SUMMARY | 2025-08-11 09:10 | XMS_ITS | Encounter Summary ---
Author Organization [employer] Address [address] [place] [address] Care Team Providers Care Solderer Name Role Phone Munir Ruiz MD Primary Care Prov ider Reason for Visit * Reason Onset Date Comments Med Refill 03/28/2025 Encounter Details Date Type Department Care Team (Late st Contact Info) Description 03/28/2025 Refill [facility] MEDICINE 230 [place] [address] Munir Ruiz MD 505 [place] [address] Benign hypertension Social History Tobacco Use Types [...] Upcoming Encounters Date Type Department Care Team ([facility] st Contact Info) Description 10/03/2025 1:30 PM EST Clinical Support [facility] MED & PEDS 505 [place] [address] Di Ulloa, ANA 505 [place] [address] documented as of this encounter Visit Diagnoses Diagnosis Benign hypertension Essential hypertension, benign documented in this encounter Additional Health Concerns Assessment Noted Time PHQ-9 Depression Total Score: 0 09/13/20 24 1:43 PM EST documented as of this encounter Care Teams Solderer Relationship Specialty Start Date End Date Munir Ruiz MD 505 [place] [address] PCP - General Internal Medicine 10/12/23 documented as of this encounter
--- OUTSIDE RECORDS SUMMARY | 2025-08-11 09:10 | XMS_ITS | Encounter Summary ---
Author Organization [employer] Address [address] [place] [address] 7 [place] [address] Care Team Providers Care Whiskey Filterer Name Role Phone Munir Ruiz MD Primary Care Prov ider Encounter Details Date Type Department Care Team ([facility] Contact Info) Description 11/20/2023 Orders Only [facility] MED & PEDS [address] [place], [place] [phone] Munir Ruiz MD 505 [place] [address] Social History Tobacco Use Types Packs/Day Years [...] Upcoming Encounters Date Type Department Care Team ([facility] st Contact Info) Description 10/03/2025 1:30 PM EST Clinical Support [facility] MED & PEDS [address] [place] [address] Di Ulloa RN 505 [place] [address] documented as of this encounter Visit Diagnoses Not on filedocumented in this encounter Additional Health Concerns Assessment Noted Time PHQ-9 Depression Total Score: 3 08/28/20 8:58 AM EDT documented as of this encounter Care Teams Whiskey Filterer Relationship Specialty Start Date End Date Munir Ruiz MD 505 [place] [address] PCP - General Internal Medicine 10/12/23 documented as of this encounter
--- OUTSIDE RECORDS SUMMARY | 2025-08-11 09:10 | XMS_ITS | Encounter Summary ---
Author Organization [employer] Address [address] [place] [address] Care Team Providers Care Blast Furnace Checker Name Role Phone Munir Ruiz MD Primary Care Prov ider Reason for Visit * Reason Onset Date Comments Med Refill 05/08/2025 Encounter Details Date Type Department Care Team (Late st Contact Info) Description 05/08/2025 Refill [facility] MEDICINE 230 [place] [address] Munir Ruiz MD 505 [place] [address] Benign hypertension Social History Tobacco Use Types [...] Upcoming Encounters Date Type Department Care Team ([facility] st Contact Info) Description 10/03/2025 1:30 PM EST Clinical Support [facility] MED & PEDS 505 [place] [address] Di Ulloa, ANA 505 [place] [address] documented as of this encounter Visit Diagnoses Diagnosis Benign hypertension Essential hypertension, benign documented in this encounter Additional Health Concerns Assessment Noted Time PHQ-9 Depression Total Score: 0 09/13/20 24 1:43 PM EST documented as of this encounter Care Teams Blast Furnace Checker Relationship Specialty Start Date End Date Munir Ruiz MD [address] [place] [address] PCP - General Internal Medicine 10/12/23 documented as of this encounter
--- OUTSIDE RECORDS SUMMARY | 2025-08-11 09:10 | XMS_ITS | Encounter Summary ---
Author Organization [employer] Address [address] [place] [address] 7 [place] [address] Care Team Providers Care Agronomy Location Manager Name Role Phone Munir Ruiz MD Primary Care Prov ider Encounter Details Date Type Department Care Team (Late st Contact Info) Description 09/14/2024 Orders Only [facility] 230 [place], [place] [phone] ProviderArjun MD Social History Tobacco Use Types [...] [facility] MED & PEDS 505 [place] [address] Di Ulloa RN 505 [place] [address] documented as of this encounter Procedures Procedure [...] documented as of this encounter Care Teams Agronomy Location Manager Relationship Specialty Start Date End Date Munir Ruiz MD 505 [place] [address] PCP - General Internal Medicine 10/12/23 documented as of this encounter
--- OUTSIDE RECORDS SUMMARY | 2025-08-11 09:11 | XMS_ITS | Encounter Summary ---
Author Organization [employer] Address [address] [place] [address] 7 [place] [address] Care Team Providers Care Anesthesiology Medical Doctor Name Role Phone Munir Ruiz MD Primary Care Prov ider Encounter Details Date Type Department Care Team ([facility] Contact Info) Description 09/22/2023 Orders Only [facility] MED & PEDS 505 [place], [place] [phone] Devon Smart MD 505 [place] [address] Benign hypertension (Primary Dx); Hypokalemia Social History [...] PM EST Clinical Support [facility] MED & PEDS 505 [place] [address] Di Ulloa, RN 505 [place] [address] documented as of this encounter Procedures Procedure Name Priority Date/Time Associated Diagnosis Comments POTASSIUM Routine 10/12/2023 9:37 AM EST Hypokalemia documented in this encounter Results * Potassium (10/12/2023 9:37 AM EST) Potassium 3.3 3.3 - 5.1 mmol/L [facility] Blood Venous blood specimen / Unknown 10/12/2023 9:37 AM EST 10/12/2023 2:06 PM EST us Devon Smart MD LAB BLOOD ORDERABLES Final Result [facility] [address] [place] [address] [phone] documented in this encounter Visit Diagnoses Diagnosis Benign hypertension- Primary Essential hypertension, benign Hypokalemia Hypopotassemia documented in this encounter Additional Health Concerns Assessment Noted Time PHQ-9 Depression Total Score: 3 08/28/20 8:58 AM EDT documented as of this encounter Care Teams Anesthesiology Medical Doctor Relationship Specialty Start Date End Date Munir Ruiz MD [address] [place] [address] PCP - General Internal Medicine 10/12/23 documented as of this encounter
--- OUTSIDE RECORDS SUMMARY | 2025-08-11 09:11 | XMS_ITS | Encounter Summary ---
Author Organization [employer] Address [address] [facility] [address] 7[address] [place] [address] Care Team Providers Care Network Support Technician Name Role Phone Munir Ruiz MD Primary Care Prov ider Encounter Details Date Type Department Care Team ([facility] st Contact Info) Description 12/20/2024 Orders Only [facility] 230 [place], [place] [phone] Chetan Hankins MD 230 [place] [address] Social History Tobacco Use Types Packs/Day Years [...] Description 10/03/2025 1:30 PM EST Clinical Support [facility] MED & PEDS 505 [place] [address] Di Ulloa, ANA 505 [place] [address] documented as of this encounter Visit Diagnoses Not on filedocumented in this encounter Additional Health Concerns Assessment Noted Time PHQ-9 Depression Total Score: 0 09/13/20 24 1:43 PM EST documented as of this encounter Care Teams Network Support Technician Relationship Specialty Start Date End Date Munir Ruiz MD 505 [place] [address] PCP - General Internal Medicine 10/12/23 documented as of this encounter
--- OUTSIDE RECORDS SUMMARY | 2025-08-11 09:11 | XMS_ITS | Encounter Summary ---
Author Organization [employer] Address [address] [place] [address] Care Team Providers Care Construction Ironworker Name Role Phone Munir Ruiz MD Primary Care Prov ider Reason for Visit * Reason Onset Date Comments Med Refill 01/27/2025 Encounter Details Date Type Department Care Team ([facility] st Contact Info) Description 01/27/2025 Telephone [facility] MEDICINE 230 [place] [address] Munir Ruiz MD 505 [place] [address] Med Refill Social History Tobacco Use Types [...] immediate release tablet To be sent to: [facility] documented in this encounter Plan of Treatment Upcoming Encounters Date Type Department Care Team ([facility] st Contact Info) Description 10/03/2025 1:30 PM EST Clinical Support [facility] MED & PEDS 505 [place] [address] Di Ulloa RN 505 [place] [address] documented as of this encounter Visit Diagnoses Not on filedocumented in this encounter Additional Health Concerns Assessment Noted Time PHQ-9 Depression Total Score: 0 09/13/20 24 1:43 PM EST documented as of this encounter Care Teams Construction Ironworker Relationship Specialty Start Date End Date Munir Ruiz MD 505 [place] [address] PCP - General Internal Medicine 10/12/23 documented as of this encounter
--- OUTSIDE RECORDS SUMMARY | 2025-08-11 09:11 | XMS_ITS | Encounter Summary ---
Author Organization [employer] Address [address] [place] [address] Care Team Providers Care Tag Marker Name Role Phone Munir Ruiz MD Primary Care Prov ider Reason for Visit * Reason Onset Date Comments Med Refill 07/17/2025 Encounter Details Date Type Department Care Team ([facility] st Contact Info) Description 07/17/2025 Telephone [facility] MEDICINE 230 [place] [address] Munir Ruiz MD 505 [place] [address] Med Refill Social History Tobacco Use Types [...] release tablet To be sent to: [facility] [place], [place] - [address] [place] [address] documented in this encounter Plan of Treatment Upcoming Encounters Date Type Department Care Team ([facility] st Contact Info) Description 10/03/2025 1:30 PM EST Clinical Support [facility] MED & PEDS 505 [place] [address] Di Ulloa RN 505 [place] [address] documented as of this encounter Visit Diagnoses Not on filedocumented in this encounter Additional Health Concerns Assessment Noted Time PHQ-9 Depression Total Score: 0 09/13/20 24 1:43 PM EST documented as of this encounter Care Teams Tag Marker Relationship Specialty Start Date End Date Munir Ruiz MD 505 [place] [address] PCP - General Internal Medicine 10/12/23 documented as of this encounter
--- OUTSIDE RECORDS SUMMARY | 2025-08-11 09:11 | XMS_ITS | Clinical Summary ---
Author Organization [employer] Address [address] [place] [address] 7 [place] [address] Care Team Providers Care Molding Line Assistant Name Role Phone Munir Ruiz MD [...] scan findings, told to follow up with [facility] for further treatment, she understood and agreed. 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) use of opiate analgesic 08/03 Overview (09/28/2024): Dx: chronic pain syndrome Rx: oxycodone 5mg TID orn Last KIT PLANNER agreement: 3.15.24 Tier II (visit every 3 [...] Department Care Team Description 07/31/2025 Orders Only [facility] External Provider, 07/21/2025 8:30 AM EDT Telemedicine [facility] MED & PEDS 505 [place] [address] Munir Ruiz MD Benign hypertension (Primary Dx); Anxiety 07/21/2025 Travel 07/20/2025 Telephone [facility] MED & PEDS [address] [place] [address] Munir Ruiz MD chart prep 07/18/2025 Refill [facility] MED & PEDS [address] [place] [address] Munir Ruiz MD Chronic pain syndrome 07/17/2025 Refill [facility] MED & PEDS [address] [place] [address] Di Ulloa RN Chronic pain syndrome 07/17/2025 Telephone [facility] MEDICINE [address] [place] [address] Munir Ruiz MD Med Refill 07/17/2025 Telephone [facility] MEDICINE [address] [place] [address] Munir Ruiz MD Med Refill 07/05/2025 3:15 PM EDT Clinical Support [facility] MED & PEDS [address] [place] [address] Di Ulloa RN Chronic pain syndrome 07/05/2025 Refill [facility] MED & PEDS [address] [place] [address] Di Ulloa RN 07/05/2025 Travel 06/21/2025 Refill [facility] MEDICINE [address] [place] [address] Munir Ruiz MD 06/16/2025 Refill [facility] MED & PEDS [address] [place] [address] Leann Earl MD Chronic pain syndrome 06/16/2025 Refill [facility] MEDICINE [address] [place] [address] Munir Ruiz MD Benign hypertension 06/16/2025 Refill [facility] MED & PEDS [address] [place] [address] Munir Ruiz MD Chronic pain syndrome; Anxiety 06/05/2025 Refill [facility] MEDICINE [address] [place] [address] Munir Ruiz MD 05/29/2025 Refill [facility] MEDICINE [address] [place] [address] Devon Smart MD 05/23/2025 Refill [facility] MED & PEDS [address] [place] [address] Munir Ruiz MD Chronic pain syndrome 05/19/2025 Orders Only [facility] External Provider, from Last 3 Months Immunizations Immunization Administration [...] [facility] [address] [place] [address] Di Ulloa, RN 505 [place] [address] Health Maintenance Due Date Last Done Comments [...] PM EDT Narrative 07/31/2025 1:22 PM EDT [place] [address] CT Scan Report Signed Patient: Bridget Jain MR#: [id number] : 1955 Acct:[id number] Age/Sex: 69 / F ADM Date: 07/31/25 Loc: HO.CT Attending Dr: Uriah Oropeza MD Ordering Physician: Uriah Oropeza MD Date of Service: 07/31/25 Procedure(s): CT chest wo IV con Accession Number(s): [id number] cc: Munir Ruiz MD; Uriah Oropeza MD Report Number: [id number]: Total DLP = 137.00 mGy-cm Reason for [...] reconstruction technique DLP: 137 mGy centimeter. FINDINGS: THREAD MARKER: Patient's large body habitus. S-shaped curvature of [...] 01:19 PM EDT RP Dictated By: David yDe MD Signed By: <Electronically signed by David Lopez MD in OV> 07/31/25 1319 DD/ 1244 TD/TT: 07/31/25 1307 Chemical Tank Worker: Procedure Note Donotuseinterpreter, Image - 07/31/[address] [address] [address] Scan Report Signed Patient: Bridget Jain AMR#: [id number] : 5Acct:[id number] Age/Sex: 69 / FADM Date: 07/31/25 Loc: HO.CT Attending Dr: Uriah Oropeza MD Ordering Physician: Uriah Oropeza MD Date of Service: 07/31/25 Procedure(s): CT chest wo IV con Accession Number(s): [id number] cc: Munir Ruiz MD; Uriah Oropeza MD Report Number: [id number]: Total DLP = 137.00 mGy-cm Reason for [...] reconstruction technique DLP: 137 mGy centimeter. FINDINGS: THREAD MARKER: Patient's large body habitus. S-shaped curvature of [...] 07/31/25 1319 DD/ 1244 TD/TT: 07/31/25 1307 Chemical Tank Worker: [facility] External Provider IMG CT PROCEDURES Final [...] 3:34 PM EDT Internal Pass Control Lot# [id number] Exp: 09-01-26 Munir Massey MD POINT OF CARE TEST ENTER/EDIT ORDERABLES Final Result * US RENAL DOPPLER (05/19/2025 1:01 PM EDT) Anatomical Region Laterality Modality Abdomen Ultrasound 05/19/2025 1:01 PM EDT Narrative 05/19/2025 1:03 PM EDT [facility] [address] [place] [address] [place] [address] Ultrasound Report Signed Patient: Bridget Jain MR#: [id number] : 1955 Acct:[id number] Age/Sex: 69 / F ADM Date: 05/19/25 Loc: .HMGCX Attending Dr: Rafy Carey MD Ordering Physician: Rafy Carey MD Date of Service: 05/19/25 Procedure(s): US renal doppler Accession Number(s): [id number] cc: Rafy Carey MD; Munir Ruiz MD CLINICAL HISTORY: I10 - Essential (primary) hypertension US renal duplex ultrasound Comparison: None Technique: Real time duplex ultrasound imaging was performed by the school secretary. Multiple customer response representative static images were saved for review. [...] 05/19/25 1302 DD/ 1301 TD/TT: 05/19/25 1301 Chemical Tank Worker: Procedure Note Donotuseinterpreter, Image - 05/19/2025 [facility] [address] [place] [address] [place] [address] Ultrasound Report Signed Patient: Bridget Jain [facility]#: [id number] : 5Acct:[id number] Age/Sex: 69 / FADM Date: 05/19/25 Loc: HO.HMGCX Attending Dr: Rafy Carey MD Ordering Physician: Rafy Carey MD Date of Service: 05/19/25 Procedure(s): US renal doppler Accession Number(s): [id number] cc: Rafy Carey MD; Munir Ruiz MD CLINICAL HISTORY: I10 - Essential (primary) hypertension US renal duplex ultrasound Comparison: None Technique: Real time duplex ultrasound imaging was performed by the school secretary. Multiple customer response representative static images were saved for review. [...] 05/19/25 1302 DD/ 1301 TD/TT: 05/19/25 1301 Chemical Tank Worker: us External Provider IMG US PROCEDURES Final Result * Lipid Panel, Standard (04/07/2025 7:01 AM EDT) Triglycerides 87 <150 mg/dL [facility] Comment:Desirable Triglyceri de: less than 150 mg/dLBorderline High Triglyceride 150-199 mg/dLHigh Triglyceride: 200-499 mg/dLVery High Triglyceride: greater than or equal to 5OO mg/dL Cholesterol 149 <200 mg/dL [facility] Comment:Desirable Cholestero l: less than 200 mg/dLBorderline High Cholesterol: 200-239 mg/dLHigh Cholesterol: greater than 239 mg/dL LDL Cholesterol Calculated 83 <100 mg/dL [facility] Comment:Desirable LDL: less than 100 mg/dLNear Optimal/Above Optimal LDL: 110- 129 mg/dLBorderline High LDL: 130-159 mg/dLHigh LDL: 160-189 mg/dLVery High LDL: greater than or equal to 190 mg/dL HDL Cholesterol 49 >40 mg/dL [facility] Comment:Desirable HDL: great er than 40 mg/dL Note: This HDL assay may give artificially low results in patients with liver disease. Blood Venous blood specimen / Unknown 04/07/2025 7:01 AM EDT 04/07/2025 10:07 AM EDT Munir Massey MD LAB BLOOD ORDERABL ES Final Result [facility] [address] [place] [phone] * Hemoglobin A1c (04/07/2025 7:00 AM EDT) Hemoglobin A1c 6.0 <6.0 % [facility] Comment:Hemoglobin A1C Refer ence Range Adults: 4.8 - 6.0 % Non diabetic: < 6.0 % Goal: < 7.0 %Additional Action Suggested: > 8.0 %Note: Hemoglobin A1c results are invalid for patients with abnormal amounts of HbF. Blood transfusions may impact the HbA1c concentration in the patient sample. Estimated Average Glucose 126 mg/dL [facility] Comment:eAG = Estimated ave rage glucose which is %A1C expressed asaverage glucose, using the formula of the C7P-LsuhuqgFocxiqk Glucose study (ADAG), Diabetes Care, Vol.31,#8,Jun. 2007 Blood Venous blood specimen / Unknown 04/07/2025 7:00 AM EDT 04/07/2025 10:07 AM EDT Munir Massey MD LAB BLOOD ORDERABL ES Final Result [facility] [address] [place] [address] [phone] * Hm Mammography (11/13/2023 11:54 AM EST) Anatomical Region Laterality Modality Other Historical Provider HEALTH MAINTENANCE Final Result * Cologuard?? colon cancer screening (11/10/2023 10:10 AM EST) Pathologist [facility] Cologuard Result Negative Negative 11/27/19 10:38 AM EST [employer] (CLIA #:[id number]) Comment: NEGATIVE TEST RESULT. A negative Cologuard [...] screened with both Cologuard and colonoscopy. (Bhavik Awad et al, N Engl J Med 2014;370(14):5771-7230) The normal value (reference range) for this assay is negative. COLOGUARD RE-SCREENING RECOMMENDATION: Periodic colorectal cancer screening is an important part of preventive healthcare for asymptomatic individuals at average risk for colorectal cancer. Following a negative Cologuard result, the [place] Cancer Society and U.S. Multi-Society Task Force screening guidelines recommend a Cologuard re-screening interval of 3 years. References: [place] [employer] Guideline for Colorectal Cancer Screening: https://www.cancer.org/cancer/eqrrf-dwibnb-fgugac/inkgovqty-cgbjyfixq-etcvoms/ac s-rec ommendations.html.; Yan HERNANDEZ, Herminio CR, Priyanka SharpK, Colorectal Cancer Screening: Recommendations for Physicians and Patients from the U.S. Multi-Society Task Force on Colorectal Cancer Screening , Am J Gastroenterology 2017; 112:9239-2003. TEST DESCRIPTION: Composite algorithmic analysis of stool [...] (Bhavik Schaefer al, N Engl J Med 2014;370(14):7598-2724.) Cologuard may produce a false negative or false positive result (no colorectal cancer or precancerous polyp present at colonoscopy follow up). A negative Cologuard test result does not guarantee the absence of CRC or advanced adenoma (pre-cancer). The current Cologuard screening interval is every 3 years. ([place] [employer] and U.S. Multi-Society Task Force). Cologuard performance data in a 10,000 patient pivotal study using colonoscopy as the reference method can be accessed at the following location: www.Placed/results. Additional description of the Cologuard test process, warnings and precautions can be found at www.[employer]. Stool specimen (specimen) 11/10/2023 10:10 AM EST 11/11/2023 2:32 PM EST Munir Massey MD LAB MOLECULAR DIAG NOSTICS ORDERABLES Final Result [facility] (CLIA #:[id number]) [place] [address], * Hepatitis C Antibody with Reflex to HCV, RNA, Quantitative, Real-Time PCR (09/18/2023 8:37 AM EST) Hepatitis C Antibody Nonreactive Nonreactive [facility] Comment:Antibodies to HCV no t detected; does not exclude early acuteHCV infection. Blood Venous blood specimen / Unknown 09/18/2023 8:37 AM EST 09/18/2023 2:26 PM EST Munir Massey MD LAB BLOOD ORDERABL ES Final Result [facility] [address] [place] [address] [phone] from Last 3 Months or Most Recently Relevant to Health Maintenance Insurance [employer] MED[employer]ARE REPLACEMENT Care Teams Molding Line Assistant Relationship Specialty Start Date End Date Munir Ruiz MD [address] [place] [address] RAH Tillman [address] PCP - General Internal Medicine 10/12/23
--- OUTSIDE RECORDS SUMMARY | 2025-08-11 09:11 | XMS_ITS | Encounter Summary ---
Author Organization [employer] Address [address] [place] [address] Care Team Providers Care Turf Grower Name Role Phone Munir Ruiz MD Primary Care Prov ider Reason for Visit * Reason Onset Date Comments Call Back Request 03/14/2024 Encounter Details Date Type Department Care Team ([facility] st Contact Info) Description 03/14/2024 Telephone [facility] MEDICINE [address] [place] [address] Munir Ruiz MD [address] [place] [address] Call Back Request Social History Tobacco Use [...] Pt wants to clarify scheduling routine for BATTERBOARD SETTER visits. Pt was sure it was every other month but is confused due to upcoming appt on 04/15 after alreadybeing seen this month on 03/11. If any questions please contact pt at [phone]. documented in this encounter Plan of Treatment Upcoming Encounters Date Type Department Care Team ([facility] st Contact Info) Description 10/03/2025 1:30 PM EST Clinical Support [facility] MED & PEDS [address] [place] [address] Di Ulloa RN [address] [place] [address] documented as of this encounter Visit Diagnoses Not on filedocumented in this encounter Additional Health Concerns Assessment Noted Time PHQ-9 Depression Total Score: 3 08/28/20 23 8:58 AM EDT documented as of this encounter Care Teams Turf Grower Relationship Specialty Start Date End Date Munri Ruiz MD [address] [place] [address] PCP - General Internal Medicine 10/12/23 documented as of this encounter
--- OUTSIDE RECORDS SUMMARY | 2025-08-11 09:11 | XMS_ITS | Encounter Summary ---
Author Organization [employer] Address [address] [place] [address] Care Team Providers Care Gis Scientist Name Role Phone Munir Ruiz MD Primary Care Prov ider Reason for Visit * Reason Onset Date Comments New Patient 07/30/2023 Encounter Details Date Type Department Care Team (Late st Contact Info) Description 07/30/2023 Telephone [facility] MEDICINE [address] [place] [address] Munir Ruiz MD [address] [place] [address] New Patient Social History Tobacco Use Types [...] PAR Mari Zuniga called pt to Offer PATIENT CARE NURSING ASSISTANT appt. Pt demographics and insurance information were verified. Pt reports the following medical conditions: HBP, High Cholesterol, Cancer low risk. Pt is currently taking medication: Yes (advised to communicate on day of appt) Pt given PATIENT CARE NURSING ASSISTANT appt with Dr. Thompson on 08/24/2023 @ 9:00 am. Pt will be sent appt reminder card and medical release form and agrees to complete and to return to medical records prior to PATIENT CARE NURSING ASSISTANT appt. documented in this encounter Plan of Treatment Upcoming Encounters Date Type Department Care Team ([facility] st Contact Info) Description 10/03/2025 1:30 PM EST Clinical Support [facility] MED & PEDS [address] [place] [address] Di Ulloa, ANA [address] [place] [address] documented as of this encounter Visit Diagnoses Not on filedocumented in this encounter Care Teams Gis Scientist Relationship Specialty Start Date End Date Munir Ruiz MD [address] [place] [address] PCP - General Internal Medicine 10/12/23 documented as of this encounter
--- OUTSIDE RECORDS SUMMARY | 2025-08-11 09:11 | XMS_ITS | Encounter Summary ---
Author Organization [employer] Address [address] [place] [address] 7 [place] [address] Care Team Providers Care Nanotechnologist Name Role Phone Munir Ruiz MD Primary Care Prov ider Encounter Details Date Type Department Care Team ([facility] Contact Info) Description 01/17/2025 Orders Only [facility] MED & PEDS [address] [place], [place] [phone] Munir Ruiz MD [address] [place] [address] Social History Tobacco Use Types Packs/Day Years [...] PM EST Clinical Support [facility] MED & PEDS [address] [place] [address] Di Ulloa, ANA [address] [place], [place] [phone] documented as of this encounter Visit Diagnoses Not on filedocumented in this encounter Additional Health Concerns Assessment Noted Time PHQ-9 Depression Total Score: 0 09/13/20 24 1:43 PM EST documented as of this encounter Care Teams Nanotechnologist Relationship Specialty Start Date End Date Munir Ruiz MD [address] [place] [address] PCP - General Internal Medicine 10/12/23 documented as of this encounter
--- OUTSIDE RECORDS SUMMARY | 2025-08-11 09:11 | XMS_ITS | Encounter Summary ---
Author Organization [employer] Address [address] [place] [address] Care Team Providers Care Prison Guard Supervisor Name Role Phone Munir Ruiz MD Primary Care Prov ider Reason for Visit * Reason Onset Date Comments Med Refill 05/29/2025 Encounter Details Date Type Department Care Team (Late st Contact Info) Description 05/29/2025 Refill [facility] MEDICINE [address] [place] [address] Devon Smart MD [address] [place] [address] Social History Tobacco Use Types Packs/Day Years [...] Description 10/03/2025 1:30 PM EST Clinical Support [facility] MED & PEDS [address] [place] [address] Di Ulloa, ANA [address] [place] [address] documented as of this encounter Visit Diagnoses Not on filedocumented in this encounter Additional Health Concerns Assessment Noted Time PHQ-9 Depression Total Score: 0 09/13/20 24 1:43 PM EST documented as of this encounter Care Teams Prison Guard Supervisor Relationship Specialty Start Date End Date Munir Ruiz MD [address] [place] [address] PCP - General Internal Medicine 10/12/23 documented as of this encounter
--- OUTSIDE RECORDS SUMMARY | 2025-08-11 09:11 | XMS_ITS | Encounter Summary ---
Author Organization [employer] Address [address] [address] Care Team Providers Care Inspector Golf Ball Name Role Phone Munir Ruiz MD Primary Care Prov ider Reason for Visit * Reason Onset Date Comments Referral 01/17/2025 Encounter Details Date Type Department Care Team ([facility] st Contact Info) Description 01/17/2025 Telephone [facility] MEDICINE [address] [place] [address] Munir Ruiz MD [address] [place] [address] Referral Social History Tobacco Use Types Packs/Day [...] on December 07, 2024 on right clavicle. Msisy inform has to be done urgently before June 10, 2025. documented in this encounter Plan of Treatment Upcoming Encounters Date Type Department Care Team (Late st Contact Info) Description 10/03/2025 1:30 PM EST Clinical Support [facility] MED & PEDS [address] [place] [address] Di Ulloa, ANA [address] [place] [address] documented as of this encounter Visit Diagnoses Not on filedocumented in this encounter Additional Health Concerns Assessment Noted Time PHQ-9 Depression Total Score: 0 09/13/20 24 1:43 PM EST documented as of this encounter Care Teams Inspector Golf Ball Relationship Specialty Start Date End Date Munir Ruiz MD [address] [place] [address] PCP - General Internal Medicine 10/12/23 documented as of this encounter
--- OUTSIDE RECORDS SUMMARY | 2025-08-11 09:11 | XMS_ITS | Encounter Summary ---
Author Organization [employer] Address [address] [place] [address] [place] [address] Care Team Providers Care Coordinator Skill Training Program Name Role Phone Munir Ruiz MD Primary Care Prov ider Reason for Visit * Reason Comments Med Refill Encounter Details Date Type Department Care Team ([facility] st Contact Info) Description 07/18/2025 Refill [facility] MED & PEDS [address] [place], [place] [phone] Munir Ruiz MD [address] [place] [address] Chronic pain syndrome Social History Tobacco Use [...] Description 10/03/2025 1:30 PM EST Clinical Support [facility] MED & PEDS [address] [place] [address] iD Ulloa RN [address] [place] [address] documented as of this encounter Visit Diagnoses Diagnosis Chronic pain syndrome documented in this encounter Additional Health Concerns Assessment Noted Time PHQ-9 Depression Total Score: 0 09/13/20 24 1:43 PM EST documented as of this encounter Care Teams Coordinator Skill Training Program Relationship Specialty Start Date End Date Munir Ruiz MD [address] [place] [address] PCP - General Internal Medicine 10/12/23 documented as of this encounter
--- OUTSIDE RECORDS SUMMARY | 2025-08-11 09:11 | XMS_ITS | Encounter Summary ---
Author Organization [employer] Address [address] [place] [address] Care Team Providers Care Postal Worker Name Role Phone Munir Ruiz MD Primary Care Prov ider Reason for Visit * Reason Onset Date Comments Med Refill 07/17/2025 Encounter Details Date Type Department Care Team ([facility] st Contact Info) Description 07/17/2025 Telephone [facility] MEDICINE [address] [place] [address] Munir Ruiz MD [address] [place] [address] Med Refill Social History Tobacco Use Types [...] Upcoming Encounters Date Type Department Care Team ([facility] st Contact Info) Description 10/03/2025 1:30 PM EST Clinical Support [facility] MED & PEDS [address] [place] [address] Di Ulloa RN [address] [place] [address] documented as of this encounter Visit Diagnoses Not on filedocumented in this encounter Additional Health Concerns Assessment Noted Time PHQ-9 Depression Total Score: 0 09/13/20 24 1:43 PM EST documented as of this encounter Care Teams Postal Worker Relationship Specialty Start Date End Date Munir Ruiz MD [address] [place] [address] PCP - General Internal Medicine 10/12/23 documented as of this encounter
--- OUTSIDE RECORDS SUMMARY | 2025-08-11 09:11 | XMS_ITS | Encounter Summary ---
Author Organization [employer] Address [address] [place] [address] Care Team Providers Care Dietary Aide Teacher Name Role Phone Munir Ruiz MD Primary Care Prov ider Reason for Visit * Reason Onset Date Comments Med Refill 02/27/2025 Encounter Details Date Type Department Care Team ([facility] st Contact Info) Description 02/27/2025 Refill [facility] MEDICINE [address] [place] [address] Munir Ruiz MD [address] [place] [address] Social History Tobacco Use Types Packs/Day Years [...] Description 10/03/2025 1:30 PM EST Clinical Support [facility] MED & PEDS [address] [place] [address] Di Ulloa, ANA [address] [place] [address] documented as of this encounter Visit Diagnoses Not on filedocumented in this encounter Additional Health Concerns Assessment Noted Time PHQ-9 Depression Total Score: 0 09/13/20 24 1:43 PM EST documented as of this encounter Care Teams Dietary Aide Teacher Relationship Specialty Start Date End Date Munir Ruiz MD [address] [place] [address] PCP - General Internal Medicine 10/12/23 documented as of this encounter
== END 2025-08-11 09:54 | disposition home or self-care (01) ==
LOC: HO.HPS 08:49
PROVIDERS: PCP Internal Medicine; Visit Provider Internal Medicine Pulmonary Disease
DX: R91.1 Solitary pulmonary nodule (principal)
CPT/HCPCS: 99213

== ENCOUNTER → 2025-08-11 08:49 | Outpatient (BNVA) | payer MEDICARE, SELFPAY | PROVIDERS: PCP Internal Medicine; Visit Provider Internal Medicine Pulmonary Disease | DX: Z71.2 Person consulting for explanation of examination or test findings (principal); R91.1 Solitary pulmonary nodule | CPT/HCPCS: 99212 ==